=== PATIENT | female | born 1935 | race Caucasian/White ===

== ENCOUNTER 2018-03-25 16:54 | Emergency (ER) | payer OTHER ==
--- NOTE | 2018-03-25 17:42 | ER ---
Nurse's Notes [facility] Name: Marcella Feldman Age: 83 yrs Sex: Female : 1935 Arrival Date: 03/25/2018 Time: 16:57 Bed 11 Private MD: Tye Judd Diagnosis: Encounter for screening, unspecified Presentation: 03/25 17:09 Presenting complaint: Child states: ran out of insulin and insurance won't pay for iw Levemir, last dose was last night, we just need a prescription to get through the weekend, was unable to be seen at PCP, BS= 218 last night. Transition of care: patient was not received from another setting of care. Onset of symptoms was March 25, 2018. Risk Assessment: Do you want to hurt yourself or someone else? Patient reports no desire to harm self or others. Initial Sepsis Screen: Does the patient meet any 2 criteria? No. Patient's initial sepsis screen is negative. Does the patient have a suspected source of infection? No. Patient's initial sepsis screen is negative. Care prior to arrival: None. 17:09 Method Of Arrival: Ambulatory iw 17:09 Acuity: DINESH 4 iw Triage Assessment: 18:00 General: Appears in no apparent distress. Behavior is calm, cooperative. iw Historical: - Allergies: 17:13 Ciprofloxacin; iw 17:13 Lyrica; iw 17:13 Stadol; iw - Home Meds: 17:13 Eleanor 180 mg Oral Tb24 1 tab once daily [Active]; allopurinol 300 mg Oral Tb24 0.5 iw tab once daily [Active]; Coreg 12.5 mg Oral Tb24 1 tab 2 times per day [Active]; Ecotrin 325 mg Oral TbEC once daily [Active]; Fish Oil 1,000 mg Oral cap daily [Active]; furosemide 40 mg Oral Tb24 once daily [Active]; hydrocodone-acetaminophen 10-325 mg Oral Tb24 1 tab daily [Active]; Iron CR 325 mg Oral 3 tab daily [Active]; Januvia 50 mg Oral Tb24 once daily [Active]; Levemir 10 subcutaneous 10 units [Active]; nateglinide Oral before each meal [Active]; Basilia-Maisha 0.8 mg Oral Tb24 daily [Active]; tramadol 50 mg Oral Tb24 1 tab every 4-6 hours [Active]; Vitamin B 100 mg daily [Active]; - PMHx: 17:13 ADD/ADHD; Arthritis; CHF; Diabetes - IDDM; Gout; Hypertension; Irregular heart rate; iw lymphedema; Pneumonia; skin cancer; - PSHx: 17:13 Hysterectomy; Cholecystectomy; Skin Cancer Removal; iw - Immunization history:: Adult Immunizations up to date. - Social history:: Smoking status: Patient/guardian denies using tobacco. - Ebola Screening: : Patient negative for fever greater than or equal to 101.5 degrees Fahrenheit, and additional compatible Ebola Virus Disease symptoms Patient denies exposure to infectious person Patient denies travel to an Ebola-affected area in the 21 days before illness onset No symptoms or risks identified at this time. Screenin:00 Abuse screen: Denies threats or abuse. Denies injuries from another. Nutritional iw screening: No deficits noted. Tuberculosis screening: No symptoms or risk factors identified. Fall Risk None identified. Assessment: 17:15 General: Appears in no apparent distress. Behavior is calm, cooperative. General: iw Denies fever, feeling ill. Pain: Denies pain. Neuro: Level of Consciousness is awake, alert, obeys commands, Oriented to person, place, time, Moves all extremities. Cardiovascular: Patient's skin is warm and dry. Respiratory: Respiratory effort is even, unlabored, Respiratory pattern is regular, symmetrical. GI: Patient currently denies diarrhea, nausea, vomiting. Derm: Skin is pink, warm \T\ dry. normal. Musculoskeletal: Range of motion: intact in all extremities. Vital Signs: 17:13 BP 189 / 74; Pulse 67; Resp 18; Temp 97.2(TE); Pulse Ox 100% on R/A; Weight 90.72 kg iw (R); Height 5 ft. 7 in. (170.18 cm); Pain 0/10; 17:13 Body Mass Index 31.32 (90.72 kg, 170.18 cm) iw ED Course: 16:57 Patient arrived in ED. mr 16:57 Tye Judd MD is Private Physician. mr 17:11 Triage completed. iw 17:13 Arm band placed on. iw 17:21 Vianney Hudson RN is Primary Nurse. iw 17:21 Salvador Cuello PA is PHCP. cp 17:21 Kaiden Wallace MD is Attending Physician. cp 17:38 Tye Judd MD is Referral Physician. cp 18:00 Patient has correct armband on for positive identification. iw 18:00 No provider procedures requiring assistance completed. Patient did not have IV access iw during this emergency room visit. Administered Medications: No medications were administered Point of Care Testing: Blood Glucose: 17:27 Blood Glucose: 207 mg/dL; iw Ranges: Outcome: 17:42 Discharge ordered by MD. cp 18:00 Discharged to home ambulatory. iw 18:00 Condition: good 18:00 Discharge instructions given to patient, family, Instructed on discharge instructions, follow up and referral plans. medication usage, Demonstrated understanding of instructions, follow-up care, medications, Prescriptions given X 1. 18:01 Patient left the ED. iw Signatures: Ruma Correa Irene, RN RN iw Salvador Cuello, MILENA PA cp
--- NOTE | 2018-03-25 17:42 | EDPHYS ---
Physician Documentation [facility] Name: Marcella Feldman Age: 83 yrs Sex: Female : 1935 Arrival Date: 03/25/2018 Time: 16:57 Bed 11 Private MD: Tye Judd ED Physician Kaiden Wallace HPI: 03/25 17:35 This 83 yrs old Female presents to ER via Ambulatory with complaints of cp Medication Refill. 17:35 The patient presents to the emergency department requesting refill(s) for: Insulin. The cp patient chronically suffers from diabetes. No complaints. Daughter reports patient will run out of prescribed Levemir this weekend and primary physician's office closed today at 1200.. Historical: - Allergies: 17:13 Ciprofloxacin; iw 17:13 Lyrica; iw 17:13 Stadol; iw - Home Meds: 17:13 Eleanor 180 mg Oral Tb24 1 tab once daily [Active]; allopurinol 300 mg Oral Tb24 0.5 iw tab once daily [Active]; Coreg 12.5 mg Oral Tb24 1 tab 2 times per day [Active]; Ecotrin 325 mg Oral TbEC once daily [Active]; Fish Oil 1,000 mg Oral cap daily [Active]; furosemide 40 mg Oral Tb24 once daily [Active]; hydrocodone-acetaminophen 10-325 mg Oral Tb24 1 tab daily [Active]; Iron CR 325 mg Oral 3 tab daily [Active]; Januvia 50 mg Oral Tb24 once daily [Active]; Levemir 10 subcutaneous 10 units [Active]; nateglinide Oral before each meal [Active]; Basilia-Maisha 0.8 mg Oral Tb24 daily [Active]; tramadol 50 mg Oral Tb24 1 tab every 4-6 hours [Active]; Vitamin B 100 mg daily [Active]; - PMHx: 17:13 ADD/ADHD; Arthritis; CHF; Diabetes - IDDM; Gout; Hypertension; Irregular heart rate; iw lymphedema; Pneumonia; skin cancer; - PSHx: 17:13 Hysterectomy; Cholecystectomy; Skin Cancer Removal; iw - Immunization history:: Adult Immunizations up to date. - Social history:: Smoking status: Patient/guardian denies using tobacco. - Ebola Screening: : Patient negative for fever greater than or equal to 101.5 degrees Fahrenheit, and additional compatible Ebola Virus Disease symptoms Patient denies exposure to infectious person Patient denies travel to an Ebola-affected area in the 21 days before illness onset No symptoms or risks identified at this time. ROS: 17:38 Constitutional: Negative for body aches, chills, fever, poor PO intake. cp 17:38 Eyes: Negative for injury, pain, redness, and discharge. cp 17:38 Cardiovascular: Negative for chest pain, edema, palpitations. 17:38 Respiratory: Negative for cough, shortness of breath, wheezing. 17:38 Abdomen/GI: Negative for abdominal pain, nausea, vomiting, and diarrhea. 17:38 All other systems are negative. Exam: 17:40 Constitutional: The patient appears in no acute distress, alert, awake, cp non-diaphoretic, non-toxic, well developed, well nourished. 17:40 Head/Face: Normocephalic, atraumatic. cp 17:40 Eyes: Periorbital structures: appear normal, Conjunctiva: normal, no exudate, no injection, Lids and lashes: appear normal, bilaterally. 17:40 ENT: External ear(s): are unremarkable, Nose: is normal, Mouth: Lips: moist, Oral mucosa: moist, Posterior pharynx: Airway: no evidence of obstruction, patent. 17:40 Chest/axilla: Inspection: normal, Palpation: is normal, no crepitus, no tenderness. 17:40 Cardiovascular: Rate: normal, Rhythm: regular, Edema: is not appreciated. 17:40 Respiratory: the patient does not display signs of respiratory distress, Respirations: normal, no use of accessory muscles, no retractions, no splinting, no tachypnea, labored breathing, is not present, Breath sounds: are clear throughout, no decreased breath sounds, no stridor, no wheezing. 17:40 Abdomen/GI: Inspection: abdomen appears normal, Palpation: abdomen is soft and non-tender, in all quadrants, rebound tenderness, is not appreciated, voluntary guarding, is not appreciated, involuntary guarding, is not appreciated. 17:40 Back: pain, is absent, ROM is normal. 17:40 Skin: cellulitis, is not appreciated, no rash present. 17:40 Neuro: Orientation: to person, place \T\ time. Mentation: is normal, Motor: moves all fours. Vital Signs: 17:13 BP 189 / 74; Pulse 67; Resp 18; Temp 97.2(TE); Pulse Ox 100% on R/A; Weight 90.72 kg iw (R); Height 5 ft. 7 in. (170.18 cm); Pain 0/10; 17:13 Body Mass Index 31.32 (90.72 kg, 170.18 cm) iw MDM: 17:21 Patient medically screened. cp 17:42 Data reviewed: vital signs, nurses notes, and as a result, I will discharge patient. cp 17:42 Counseling: I had a detailed discussion with the patient and/or guardian regarding: the cp historical points, exam findings, and any diagnostic results supporting the discharge/admit diagnosis, the presence of at least one elevated blood pressure reading (>120/80) during this emergency department visit, the need for outpatient follow up, a family practitioner, to return to the emergency department if symptoms worsen or persist or if there are any questions or concerns that arise at home. 03/25 17:16 Order name: Accucheck Blood Glucose; Complete Time: 17:27 cp Administered Medications: No medications were administered Point of Care Testing: Blood Glucose: 17:27 Blood Glucose: 207 mg/dL; iw Ranges: Critical Glucose Levels:Adult <50 mg/dl or >400 mg/dl <40 mg/dl or >180 mg/dl Disposition: 18:37 Co-signature as Attending Physician, Kaiden Wallace MD. rn Disposition: 03/25/18 17:42 Discharged to Home. Impression: Encounter for screening, unspecified. - Condition is Stable. - Prescriptions for Levemir 100 unit/mL Subcutaneous solution - inject 10 unit by SUBCUTANEOUS route once daily; 1 vial. - Medication Reconciliation Form, Thank You Letter, Antibiotic Education, Prescription Opioid Use form. - Follow up: Tye Judd MD; When: 03-28-2018, for immediate follow-up; Reason: medication refill. - Problem is new. - Symptoms are unchanged. Signatures: Vianney Hudson, RN RN iw Kaiden Wallace MD MD rn Page, Corey, PA PA cp Corrections: (The following items were deleted from the chart) 18:01 17:42 03/25/2018 17:42 Discharged to Home. Impression: Encounter for screening, iw unspecified. Condition is Stable. Prescriptions for Levemir 100 unit/mL Subcutaneous solution - inject 10 unit by SUBCUTANEOUS route once daily; 1 vial. and Forms are Medication Reconciliation Form, Thank You Letter, Antibiotic Education, Prescription Opioid Use. Follow up: Tye Judd; When: 03-28-2018, for immediate follow-up; Reason: medication refill. Problem is new. Symptoms are unchanged. cp
[2018-03-25 19:12] VITALS: BP 189/74; TEMP 97.2; O2SAT 100
== END 2018-03-25 18:01 | disposition home or self-care (01) ==
LOC: ER 16:54
DX: Z76.0 Encounter for issue of repeat prescription (principal); I10 Essential (primary) hypertension; E11.9 Type 2 diabetes mellitus without complications; Z79.4 Long term (current) use of insulin; Z85.828 Personal history of other malignant neoplasm of skin; Z88.3 Allergy status to other anti-infective agents; Z88.6 Allergy status to analgesic agent; Z88.8 Allergy status to other drugs, medicaments and biological substances
CPT/HCPCS: 82962; 99282

== ENCOUNTER 2018-06-29 21:18 | Observation (INO) | payer OTHER ==
--- OUTSIDE RECORDS SUMMARY | 2018-06-29 21:20 | XMS REPORT ---
:1935 Author Organization [employer] Care Team Providers Name Role Phone Saud Thorne Provider Role Unavailable Allergies, Adverse Reactions, Alerts Substance Reaction Event Type Stadol Info Not Available Drug Allergy Lyrica Info Not Available Drug Allergy Problems Problem Type Condition Code Onset Dates Condition Status Assessment Primary osteoarthritis of right M17.11 Active knee Problem Primary osteoarthritis of right M17.11 Active knee Assessment Acute pain of right knee M25.561 Active Medications Medication Code System Code Instructions Start Date End Date Status Dosage Allopurinol NDC 0 Active not defined Results No Known Results Summary Purpose [employer] Submission
[2018-06-29 23:08] LABS: Absolute Lymphocytes (CBC) 2.8 K/uL (0.7-4.9); Absolute Monocytes 0.6 K/uL (0.1-1.3); Absolute Neutrophil 4.1 K/uL (1.8-8.0); Basophils % 0.9 % (0-1.3); Eosinophils % 3.8 % (0-4.4); Hematocrit 33.8 % (36.0-45.0); Lymphocytes % 35.3 % (15.3-44.8); MCH 32.7 pg (27.0-35.0); MCV 98.8 fL (80-100); MPV 11.5 fL (7.6-11.3); Monocytes % 8.1 % (3.3-12.3); RBC Red Blood Cell Count 3.42 M/uL (3.86-4.86)
[2018-06-29 23:13] LABS: Protime INR 1.04
[2018-06-29 23:23] LABS: Albumin 3.4 g/dL (3.4-5.0); Bilirubin Direct 0.2 mg/dL (0-0.2); Bilirubin Total 0.6 mg/dL (0.2-1.0); Protein, Total 7.6 g/dL (6.4-8.2)
--- NOTE | 2018-06-30 00:32 | ER ---
Nurse's Notes [facility] Name: Marcella Feldman Age: 83 yrs Sex: Female : 1935 Arrival Date: 06/29/2018 Time: 21:20 Bed 5 Private MD: Tye Judd Diagnosis: Gastrointestinal hemorrhage, unspecified Presentation: 06/29 21:39 Presenting complaint: Patient states: She has had bright red rectal bleeding that is aj1 constant with clots since noon today. Patient states that she is feeling generalized fatigue. Denies shortness of breath, dizziness. Transition of care: patient was not received from another setting of care. Onset of symptoms was June 29, 2018 at 12:00. Risk Assessment: Do you want to hurt yourself or someone else? Patient reports no desire to harm self or others. Initial Sepsis Screen: Does the patient meet any 2 criteria? No. Patient's initial sepsis screen is negative. Does the patient have a suspected source of infection? No. Patient's initial sepsis screen is negative. Care prior to arrival: None. 21:39 Method Of Arrival: Wheelchair aj1 21:39 Acuity: DINESH 3 aj1 Triage Assessment: 21:41 General: Appears in no apparent distress. comfortable, Behavior is calm, cooperative, aj1 appropriate for age. Pain: Denies pain. Neuro: Level of Consciousness is awake, alert, obeys commands. Cardiovascular: Patient's skin is warm and dry. Respiratory: Airway is patent Respiratory effort is even, unlabored, Respiratory pattern is regular, symmetrical. GI: Reports rectal bleeding. Historical: - Allergies: 21:41 Ciprofloxacin; aj1 21:41 Lyrica; aj1 21:41 Stadol; aj1 - Home Meds: 21:41 Eleanor 180 mg Oral Tb24 1 tab once daily [Active]; allopurinol 300 mg Oral Tb24 0.5 aj1 tab once daily [Active]; Coreg 12.5 mg Oral Tb24 1 tab 2 times per day [Active]; gabapentin oral oral [Active]; Ecotrin 325 mg Oral chew once daily [Active]; Fish Oil 1,000 mg Oral cap daily [Active]; furosemide 40 mg Oral Tb24 once daily [Active]; hydrocodone-acetaminophen 10-325 mg Oral Tb24 1 tab daily [Active]; Iron CR 325 mg Oral 3 tab daily [Active]; Januvia 50 mg Oral Tb24 once daily [Active]; Levemir 10 subcutaneous 10 units [Active]; nateglinide Oral before each meal [Active]; Basilia-Maisha 0.8 mg Oral Tb24 daily [Active]; tramadol 50 mg Oral Tb24 1 tab every 4-6 hours [Active]; Vitamin B 100 mg daily [Active]; - PMHx: 21:41 ADD/ADHD; Arthritis; CHF; Diabetes - IDDM; Gout; Hypertension; Irregular heart rate; aj1 lymphedema; Pneumonia; skin cancer; - Immunization history:: Flu vaccine is up to date. - Social history:: Smoking status: Patient/guardian denies using tobacco. - Ebola Screening: : Patient denies travel to an Ebola-affected area in the 21 days before illness onset. Screenin:04 Abuse screen: Denies threats or abuse. Denies injuries from another. Nutritional bp screening: No deficits noted. Tuberculosis screening: No symptoms or risk factors identified. Fall Risk No fall in past 12 months (0 pts). No secondary diagnosis (0 pts). No IV (0 pts). Ambulatory Aid- None/Bed Rest/Nurse Assist (0 pts). Gait- Normal/Bed Rest/Wheelchair (0 pts) Mental Status- Oriented to own ability (0 pts). Total Herrera Fall Scale indicates No Risk (0-24 pts). Assessment: 22:00 General: Appears in no apparent distress. comfortable, Behavior is calm, cooperative, bp appropriate for age. Pain: Denies pain. Neuro: Level of Consciousness is awake, alert, obeys commands, Oriented to person, place, time, situation, Appropriate for age Reports FATIGUE. Cardiovascular: Rhythm is sinus rhythm Chest pain is denied. Respiratory: Airway is patent Respiratory effort is even, unlabored, Respiratory pattern is regular, symmetrical. GI: Reports rectal bleeding. : No signs and/or symptoms were reported regarding the genitourinary system. EENT: No deficits noted. Derm: No deficits noted. Musculoskeletal: Circulation, motion, and sensation intact. Range of motion: intact in all extremities. 23:00 Reassessment: No changes from previously documented assessment. Patient and/or family bb updated on plan of care and expected duration. Pain level reassessed. Patient is alert, oriented x 3, equal unlabored respirations, skin warm/dry/pink. 23:48 Reassessment: Patient and/or family updated on plan of care and expected duration. Pain bb level reassessed. Patient is alert, oriented x 3, equal unlabored respirations, skin warm/dry/pink. pt awaiting diagnostic results. 06/30 01:45 Reassessment: Patient appears in no apparent distress at this time. Patient and/or bp family updated on plan of care and expected duration. Pain level reassessed. Patient is alert, oriented x 3, equal unlabored respirations, skin warm/dry/pink. Dr. Joseph did per rectal examination for the patient. 01:45 Reassessment: Room assigned at 409, called telemetry extension at 1440 and report given cc3 to SUZAN Ceballos for continuity of care. 01:55 Reassessment: Patient left ER vitally stable by stretcher escorted by senior technical support engineer and cc3 family member. Vital Signs: 06/29 21:41 BP 158 / 69; Pulse 76; Resp 18; Temp 98.6(O); Pulse Ox 100% on R/A; Weight 90.72 kg aj1 (R); Height 5 ft. 7 in. (170.18 cm) (R); Pain 0/10; 22:00 BP 148 / 82; Pulse 75; Resp 16; Pulse Ox 100% ; bp 23:00 BP 153 / 82; Pulse 76; Resp 16 S; Pulse Ox 100% on R/A; bb 23:51 BP 157 / 77; Pulse 68; Resp 14 S; Pulse Ox 100% on R/A; bb 06/30 00:58 BP 163 / 90; Pulse 74; Resp 11; Pulse Ox 100% ; bp 01:30 BP 161 / 83; Pulse 75; Resp 13 S; Pulse Ox 100% on R/A; bp 06/29 21:41 Body Mass Index 31.32 (90.72 kg, 170.18 cm) aj1 ED Course: 06/29 21:20 Patient arrived in ED. es 21:20 Tye Judd MD is Private Physician. es 21:40 Triage completed. aj1 21:41 Arm band placed on Patient placed in waiting room. aj1 22:04 Patient has correct armband on for positive identification. Placed in gown. Bed in low bp position. Call light in reach. Side rails up X2. Adult w/ patient. 22:10 Inserted saline lock: 20 gauge in right antecubital area, using aseptic technique. cc3 Blood collected. 22:21 You Joseph MD is Attending Physician. gs 23:48 Eli Irizarry, RN is Primary Nurse. bb 06/30 00:29 Tye Judd MD is Hospitalizing Provider. gs 00:59 No provider procedures requiring assistance completed. Patient admitted, IV remains in bp place. Administered Medications: 00:35 Drug: NS 0.9% 1000 ml Route: IV; Rate: 1 bolus; Site: right antecubital; bp 01:20 Follow up: Response: No adverse reaction; IV Status: Infusion continued upon admission cc3 00:35 Drug: ProTONIX 40 mg Route: IVP; Site: left antecubital; bp 00:50 Follow up: Response: No adverse reaction bp Outcome: 00:32 Decision to Hospitalize by Provider. gs 01:45 Admitted to Tele accompanied by tech, via stretcher, room 409, Other SBAR Report called bp to SUZAN Ceballos 01:45 Condition: stable 01:45 Instructed on the need for admit. 02:04 Patient left the ED. cc3 Signatures: Gracia Hassan, RN RN ajShaila Ramirez Brenda, RN RN bb oYu Joseph MD MD Uri Faith RN RN Priyanka Pena cc3 Corrections: (The following items were deleted from the chart) 06/29 23:51 23:49 BP 157 / 77; Pulse 68bpm; Resp 14bpm; Spontaneous; Pulse Ox 100% RA; bb bb 23:51 23:00 BP 157 / 77; Pulse 68bpm; Resp 14bpm; Spontaneous; Pulse Ox 100% RA; bb bb
--- NOTE | 2018-06-30 00:32 | EDPHYS ---
Physician Documentation [facility] Name: Marcella Feldman Age: 83 yrs Sex: Female : 1935 Arrival Date: 06/29/2018 Time: 21:20 Bed 5 Private MD: Tye Judd ED Physician You Joseph HPI: 06/30 00:27 This 83 yrs old Female presents to ER via Wheelchair with complaints of gs Rectal Bleeding. 00:27 The patient presents to the emergency department with bleeding from the rectum/anus, gs that is moderate. Onset: The symptoms/episode began/occurred yesterday. Modifying factors: The symptoms are alleviated by nothing, The symptoms are aggravated by nothing. Associate signs and symptoms: Pertinent negatives: abdominal pain, constipation. The patient has experienced similar episodes in the past, a few times. The patient has not recently seen a physician. Historical: - Allergies: 06/29 21:41 Ciprofloxacin; aj1 21:41 Lyrica; aj1 21:41 Stadol; aj1 - Home Meds: 21:41 Eleanor 180 mg Oral Tb24 1 tab once daily [Active]; allopurinol 300 mg Oral Tb24 0.5 aj1 tab once daily [Active]; Coreg 12.5 mg Oral Tb24 1 tab 2 times per day [Active]; gabapentin oral oral [Active]; Ecotrin 325 mg Oral chew once daily [Active]; Fish Oil 1,000 mg Oral cap daily [Active]; furosemide 40 mg Oral Tb24 once daily [Active]; hydrocodone-acetaminophen 10-325 mg Oral Tb24 1 tab daily [Active]; Iron CR 325 mg Oral 3 tab daily [Active]; Januvia 50 mg Oral Tb24 once daily [Active]; Levemir 10 subcutaneous 10 units [Active]; nateglinide Oral before each meal [Active]; Basilia-Maisha 0.8 mg Oral Tb24 daily [Active]; tramadol 50 mg Oral Tb24 1 tab every 4-6 hours [Active]; Vitamin B 100 mg daily [Active]; - PMHx: 21:41 ADD/ADHD; Arthritis; CHF; Diabetes - IDDM; Gout; Hypertension; Irregular heart rate; aj1 lymphedema; Pneumonia; skin cancer; - Immunization history:: Flu vaccine is up to date. - Social history:: Smoking status: Patient/guardian denies using tobacco. - Ebola Screening: : Patient denies travel to an Ebola-affected area in the 21 days before illness onset. ROS: 06/30 00:27 All other systems are negative. gs Exam: 00:27 Head/Face: Normocephalic, atraumatic. Eyes: Pupils equal round and reactive to light, gs extra-ocular motions intact. Lids and lashes normal. Conjunctiva and sclera are non-icteric and not injected. Cornea within normal limits. Periorbital areas with no swelling, redness, or edema. ENT: Nares patent. No nasal discharge, no septal abnormalities noted. Tympanic membranes are normal and external auditory canals are clear. Oropharynx with no redness, swelling, or masses, exudates, or evidence of obstruction, uvula midline. Mucous membranes moist. Neck: Trachea midline, no thyromegaly or masses palpated, and no cervical lymphadenopathy. Supple, full range of motion without nuchal rigidity, or vertebral point tenderness. No Meningismus. Chest/axilla: Normal chest wall appearance and motion. Nontender with no deformity. No lesions are appreciated. Cardiovascular: Regular rate and rhythm with a normal S1 and S2. No gallops, murmurs, or rubs. Normal PMI, no JVD. No pulse deficits. Respiratory: Lungs have equal breath sounds bilaterally, clear to auscultation and percussion. No rales, rhonchi or wheezes noted. No increased work of breathing, no retractions or nasal flaring. Abdomen/GI: Soft, non-tender, with normal bowel sounds. No distension or tympany. No guarding or rebound. No evidence of tenderness throughout. Back: No spinal tenderness. No costovertebral tenderness. Full range of motion. Skin: Warm, dry with normal turgor. Normal color with no rashes, no lesions, and no evidence of cellulitis. MS/ Extremity: Pulses equal, no cyanosis. Neurovascular intact. Full, normal range of motion. Neuro: Awake and alert, GCS 15, oriented to person, place, time, and situation. Cranial nerves II-XII grossly intact. Motor strength 5/5 in all extremities. Sensory grossly intact. Cerebellar exam normal. Normal gait. 00:27 Constitutional: The patient appears in no acute distress, alert, awake. 00:27 Abdomen/GI: Rectal exam: Stool: grossly bloody. Vital Signs: 06/29 21:41 BP 158 / 69; Pulse 76; Resp 18; Temp 98.6(O); Pulse Ox 100% on R/A; Weight 90.72 kg aj1 (R); Height 5 ft. 7 in. (170.18 cm) (R); Pain 0/10; 22:00 BP 148 / 82; Pulse 75; Resp 16; Pulse Ox 100% ; bp 23:00 BP 153 / 82; Pulse 76; Resp 16 S; Pulse Ox 100% on R/A; bb 23:51 BP 157 / 77; Pulse 68; Resp 14 S; Pulse Ox 100% on R/A; bb 06/30 00:58 BP 163 / 90; Pulse 74; Resp 11; Pulse Ox 100% ; bp 01:30 BP 161 / 83; Pulse 75; Resp 13 S; Pulse Ox 100% on R/A; bp 06/29 21:41 Body Mass Index 31.32 (90.72 kg, 170.18 cm) aj1 MDM: 06/29 22:39 Patient medically screened. 06/30 00:27 Differential diagnosis: hemorrhoids, fissure, diverticular bleeding, pud. Data gs reviewed: vital signs, nurses notes. Response to treatment: the patient's symptoms have markedly improved after treatment, and as a result, I will admit patient. 06/29 22:39 Order name: Basic Metabolic Panel; Complete Time: 00:21 06/29 22:39 Order name: CBC with Diff; Complete Time: 00:21 06/29 22:39 Order name: Creatinine for Radiology; Complete Time: 00:21 06/29 22:39 Order name: Hepatic Function; Complete Time: 00:21 06/29 22:39 Order name: Lipase; Complete Time: 00:21 06/29 22:39 Order name: Type And Screen 06/29 22:39 Order name: PT-INR; Complete Time: 00: 06/30 00:40 Order name: CONS Physician Consult EDMS 06/30 00:40 Order name: CBC with Automated Diff EDMS 06/30 00:40 Order name: CBC with Automated Diff EDMS 06/30 00:40 Order name: CBC with Automated Diff EDMS 06/30 00:40 Order name: CBC with Automated Diff EDMS 06/29 22:39 Order name: IV Saline Lock; Complete Time: 22:40 06/29 22:39 Order name: Labs collected and sent; Complete Time: 22:40 06/30 00:40 Order name: Clear Liquid EDMS Administered Medications: 00:35 Drug: NS 0.9% 1000 ml Route: IV; Rate: 1 bolus; Site: right antecubital; bp 01:20 Follow up: Response: No adverse reaction; IV Status: Infusion continued upon admission cc3 00:35 Drug: ProTONIX 40 mg Route: IVP; Site: left antecubital; bp 00:50 Follow up: Response: No adverse reaction bp Disposition: 06/30/18 00:32 Hospitalization ordered by Tye Judd for Observation. Preliminary diagnosis is Gastrointestinal hemorrhage, unspecified. - Bed requested for Telemetry/MedSurg (observation). - Status is Observation. cc3 - Condition is Stable. - Problem is new. - Symptoms are unchanged. UTI on Admission? No Signatures: Dispatcher [employer] EDMT Gracia Hassan RN RN [facility] Margoth Ruff RN RN mw Starr, Gregory, MD MD Uri Faith RN RN bp Cordel, Charlene cc3 Corrections: (The following items were deleted from the chart) 00:49 00:32 Hospitalization Ordered by Tye Judd MD for Observation. Preliminary diagnosis is Gastrointestinal hemorrhage, unspecified. Bed requested for Telemetry/MedSurg (observation). Status is Observation. Condition is Stable. Problem is new. Symptoms are unchanged. UTI on Admission? No. gs 00:52 00:49 06/30/2018 00:32 Hospitalization Ordered by Tye Judd MD for Observation. mw Preliminary diagnosis is Gastrointestinal hemorrhage, unspecified. Bed requested for Telemetry/MedSurg (observation). Status is Observation. Condition is Stable. Problem is new. Symptoms are unchanged. UTI on Admission? No. mw 02:04 00:52 06/30/2018 00:32 Hospitalization Ordered by Tye Judd MD for Observation. cc3 Preliminary diagnosis is Gastrointestinal hemorrhage, unspecified. Bed requested for Telemetry/MedSurg (observation). Status is Observation. Condition is Stable. Problem is new. Symptoms are unchanged. UTI on Admission? No. mw
[2018-06-30] MEDS ORDERED: ACETAMINOPHEN 500 MG TAB PO PRN (00:37)
[2018-06-30] MEDS ORDERED: D50W 25 GM/50 ML SYRINGE IV PRN (00:38)
[2018-06-30] MEDS ORDERED: GLUCAGON 1 MG/VIAL IM PRN (00:38)
[2018-06-30] MEDS ORDERED: PANTOPRAZOLE 40 MG INJ ONE (00:41)
[2018-06-30] MEDS ORDERED: NA CHLORIDE 0.9% 1,000 ML ONE (00:42)
[2018-06-30 02:25] VITALS: BMI 31.3
[2018-06-30] MEDS: D5 0.45 NS 1,000 ML IV SCH ×3 (02:37→11:45)
[2018-06-30] MEDS: INSULIN -REGULAR HUMAN 50 UNIT/0.5 ML ML SQ SCH ×4 (07:30→21:00)
[2018-06-30] MEDS ORDERED: INFLUENZA VACCINE (for 3y+) 0.5 ML DOSE IMVAC ONE (08:00)
[2018-06-30] MEDS ORDERED: FUROSEMIDE 40 MG/4 ML VIAL IV SCH (09:00)
[2018-06-30] MEDS: CARVEDILOL 12.5 MG TAB PO SCH ×2 (09:07→21:10)
[2018-06-30] MEDS: FUROSEMIDE 40 MG TABLET PO SCH (09:07)
[2018-06-30] MEDS ORDERED: HYDROCODONE/APAP 10/325 TAB PO PRN (11:47)
[2018-06-30] MEDS ORDERED: [UNRECOGNIZED DRUG - REMARK] PO PRN (11:47)
[2018-06-30] MEDS ORDERED: INSULIN GLARGINE 100 UNITS/ML SQ PRN (11:47)
[2018-06-30] MEDS ORDERED: TRAMADOL HCL 50 MG TAB PO PRN (11:47)
[2018-06-30] MEDS: ALLOPURINOL 300 MG TAB PO SCH (12:50)
[2018-06-30] MEDS: MULTIVITAMINS,THERAPEUT 1 TAB PO SCH (12:50)
[2018-06-30] MEDS: SITAGLIPTIN PHOS 100 MG TAB PO SCH (12:51)
[2018-06-30] MEDS: GABAPENTIN 100 MG CAP PO SCH (12:51)
[2018-06-30] MEDS: VITAMIN B COMPLEX 1 CAP PO SCH ×2 (12:51→12:53)
[2018-06-30] MEDS: DOCOSAHEXANOIC AC/EPA 1000 MG PO SCH (12:52)
[2018-06-30] MEDS: FERROUS SULFATE 325 MG TAB PO SCH ×2 (12:52→21:09)
[2018-06-30] MEDS ORDERED: MAGNESIUM CITRATE 300 ML BOT PO SCH (19:00)
[2018-06-30] MEDS ORDERED: GOLYTELY 4000 ML PO SCH (19:00)
[2018-06-30] MEDS: METOCLOPRAMIDE 10 MG/2mL INJ IV SCH (20:14)
[2018-06-30] MEDS ORDERED: CARVEDILOL 12.5 MG TAB PO SCH (21:00)
--- NOTE | 2018-06-30 22:26 | EKG ---
Test Date: 2018-06-30 Test Time: 17:06:17 Manager Solar: YAMILET MEASUREMENT RESULTS: Intervals: Rate: 82 NM: QRSD: 108 QT: 408 QTc: 476 Kingman: P: NM: QRS: 10 T: 62 INTERPRETIVE STATEMENTS: Atrial fibrillation with premature ventricular or aberrantly conducted complexes Incomplete right bundle branch block Cannot rule out Anterior infarct, age undetermined Abnormal ECG Compared to ECG 09/13/2017 15:06:42 Ventricular premature complex(es) now present Myocardial infarct finding still present Electronically Signed On 06-30-18 22:26:12 CDT by Joe Marie
[2018-06-30] MEDS ORDERED: cloNIDine HCl 0.1 MG TAB PO ONE (22:54)
[2018-06-30] MEDS ORDERED: cloNIDine HCl 0.1 MG TAB PO PRN (22:56)
[2018-07-01] MEDS: METOCLOPRAMIDE 10 MG/2mL INJ IV SCH ×2 (01:03→08:59)
[2018-07-01] MEDS: INSULIN -REGULAR HUMAN 50 UNIT/0.5 ML ML SQ SCH ×3 (07:30→16:30)
[2018-07-01] MEDS ORDERED: FUROSEMIDE 40 MG TABLET PO SCH (09:00)
[2018-07-01] MEDS: SITAGLIPTIN PHOS 100 MG TAB PO SCH (09:00)
[2018-07-01] MEDS: FERROUS SULFATE 325 MG TAB PO SCH ×2 (09:00→16:05)
[2018-07-01 09:09] LABS: Absolute Lymphocytes (CBC) 2.1 K/uL (0.7-4.9); Absolute Monocytes 0.9 K/uL (0.1-1.3); Absolute Neutrophil 7.7 K/uL (1.8-8.0); Basophils % 0.5 % (0-1.3); Eosinophils % 0.6 % (0-4.4); Hematocrit 35.3 % (36.0-45.0); Lymphocytes % 19.4 % (15.3-44.8); MCH 32.6 pg (27.0-35.0); MCV 98.4 fL (80-100); MPV 11.5 fL (7.6-11.3); Monocytes % 8.4 % (3.3-12.3); RBC Red Blood Cell Count 3.59 M/uL (3.86-4.86)
--- NOTE | 2018-07-01 10:58 | RAD REPORT ---
EXAM DESCRIPTION: RAD - Colon Barium Enema - 07/01/2018 10:40 am CLINICAL HISTORY: Acute GI bleeding COMPARISON: None. TECHNIQUE: A single column barium enema examination was performed. FINDINGS: The wrecking supervisor film shows a nonspecific bowel gas pattern. No significant or suspicious findin gs noted on the preliminary imaging. There were 30 spot images obtained and 12 overhead images. Fluoro time was 4.5 minutes. Barium filled the entire colon. No reflux into the terminal ileum. The appendix was visualized. Tequila ent has a mild sigmoid diverticulosis pattern. There is mild sigmoid spasm noted during the examinati on. No annular constricting lesion or large polypoid filling defect seen in the sigmoid colon. There is mild tortuosity. No annular constricting lesion is present. No other area of diverticulosis. Transverse and descending portions of the colon show no suspicious findings. In the ascending colon near the hepatic flexure t here is a 15 millimeter smooth filling defect that persisted on the examination. This is suspected to be a polyp. Patient has a large fatty ileocecal valve. IMPRESSION: Suspected 15 millimeter polyp in the ascending colon near the hepatic flexure. Mild sigmoid diverticulosis and mild sigmoid spasm during the examination. No annular constricting lesion or large colon mass.
[2018-07-01] MEDS: FUROSEMIDE 40 MG TABLET PO SCH (11:33)
[2018-07-01] MEDS: CARVEDILOL 12.5 MG TAB PO SCH (11:34)
[2018-07-01] MEDS ORDERED: NA CHLORIDE 0.9% 1,000 ML ONE (14:11)
[2018-07-01 14:14] VITALS: O2SAT 100
[2018-07-01] MEDS ORDERED: PROPOFOL 200 MG/20 ML VIAL IV ONE (14:24)
--- NOTE | 2018-07-01 14:35 | ENDO RPT ---
[address], [address] EGD PROCEDURE REPORT EXAM DATE: 07/01/2018 PATIENT NAME: Marcella Feldman MR#: [id number] BIRTHDATE: 1935 ATTENDING: Jimmy Giles Dr STATUS: inpatient - [facility] AD[facility]ISTRATIVE MANAGER: Amanda Mccain and Sarina Perez RN INDICATIONS: The patient is a 83 yr old Female here for an EGD due to anemia and upper G.I. bleeding PROCEDURE PERFORMED: EGD with biopsy MEDICATIONS: Per Anesthesia. TOPICAL ANESTHETIC: none CONSENT: The patient understands the risks and benefits of the procedure and understands that these risks include, but are not limited to: sedation, allergic reaction, infection, perforation and/or bleeding. Alternative means of evaluation and treatment include, among others: physical exam, x-rays, and/or surgical intervention. The patient elects to proceed with this endoscopic procedure. DESCRIPTION OF PROCEDURE: During intra-op preparation period all mechanical medical equipment was checked for proper function. Hand hygiene and appropriate measures for infection prevention was taken. Procedure, possible complications, and alternatives including but not limited to the possibility of bleeding, perforation, tear, infection, sepsis, need for surgery, need for blood transfusion, and anesthesia related complications were explained to the patient. After the risks, benefits and alternatives of the procedure were thoroughly explained, Informed consent was verified, confirmed and timeout was successfully executed by the treatment team. The patient was placed in the left lateral position. The patient was anesthetized with topical anesthesia. Through the anesthetized oropharyngeal area, the scope was passed without any difficulty. The EC-[id number] ([id number]) and Pentax EG-[id number] ([id number]) endoscope was introduced through the mouth and advanced to the second portion of the duodenum. Retroflexed views revealed no abnormalities. The gastroscope was then slowly withdrawn and removed. LA Class C esophagitis was found in the lower esophagus. A 3 mm clean-based ulcer was found in the lower esophagus. Mild gastritis was found in the antrum. Multiple biopsies were obtained and sent to pathology. Multiple (6) erosions were found in the antrum. ADVERSE EVENTS: There were no complications. IMPRESSIONS: 1. LA Class C esophagitis in the lower esophagus 2. 3 mm clean-based ulcer in the lower esophagus 3. Mild gastritis in the antrum, s/p biopsies 4. Multiple (6) erosions were found in the antrum RECOMMENDATIONS: 1. await biopsy results 2. acid suppression therapy REPEAT EXAM: Jimmy Giles Dr eSigned: Jimmy Giles Dr 07/01/2018 2:34 PM cc: Tye Judd CPT CODES: ICD9 CODES: PATIENT NAME: Marcella Feldman MR#: [id number]
[2018-07-01] MEDS: DOCOSAHEXANOIC AC/EPA 1000 MG PO SCH (16:04)
[2018-07-01] MEDS: GABAPENTIN 100 MG CAP PO SCH (16:06)
[2018-07-01] MEDS: ALLOPURINOL 300 MG TAB PO SCH (16:08)
[2018-07-01] MEDS: MULTIVITAMINS,THERAPEUT 1 TAB PO SCH (16:09)
[2018-07-01 17:17] VITALS: BP 149/74; TEMP 97
[2018-07-01] MEDS ORDERED: INFLUENZA VACCINE (for 3y+) 0.5 ML DOSE IMVAC ONE (18:00)
--- NOTE | 2018-07-02 16:07 | SS ---
Date of Discharge: 07/01/2018 History: The patient was admitted to the hospital for sudden onset of what was felt to be significan t rectal bleeding, seen in the ER. The patient had similar problem approximately 3 or 4 months ago, at which time she was admitted, observed, no significant drop in her H and H, bleeding stopped. She has been discharged with the suggestion that she have a colonoscopy, however, this has not been accom plished as yet. Past History: This is second or third episode of what she felt was significant bleeding. Had some b right red bleeding intermittently in the past. Long history of IDDM, controlled with medication, hyp ertension controlled with medication. Physical Examination: General: The patient is an elderly female, fully orientated. Vital Signs: Stable. HEENT: Slightly pale conjunctiva, otherwise basically normal physical exam on the ENT. Chest: Clear to P and A. Cardiovascular: PMI midclavicular line. Heart sounds normal. Peripheral pulses present and equal b ilaterally. Abdomen: No organomegaly. Bowel sounds present. Extremities: Good tone and movement bilaterally. Reflexes physiologic. Rectal: Bright red bleeding noted in the ER, but none since at the time that I saw her. Pelvic: Exam deferred. Impression: 1.Rectal bleeding, unknown etiology, possible lower or upper gastrointestinal etiology, although the patient is basically asymptomatic. 2.Hypertension, controlled. 3.Insulin-dependent diabetes mellitus, good control. Plan: The patient will be admitted. H and H will be followed. Consultation was obtained with the g astroenterologist for possible EGD and/or colonoscopy during this hospitalization. HR/MODL Voice ID: [id number] Report ID: [id number]
--- NOTE | 2018-07-02 16:14 | PN ---
Date of Progress Note: 06/30/2018 The patient was having minimal bright red bleeding while in the hospital. No melena. Underwent an E GD, which did show a small ulcer and inflammation in the esophagus and stomach and possible cause of bleeding. She did not have a significant change in her vital signs, therefore I felt she could be di scharged to continue on her usual medication which include the iron, and to see the gastroenterologis t on an outpatient basis for possible colonoscopy. HR/MODL Voice ID: [id number] Report ID: [id number]
== END 2018-07-01 19:03 | disposition home or self-care (01) ==
LOC: ER 21:18 → ERHOLD 06-30 00:35 → 4TH 06-30 01:36
PROVIDERS: ADMIT Family Medicine; ATTEND Family Medicine
PROC: 0DB68ZX Excision of Stomach, Via Natural or Artificial Opening Endoscopic, Diagnostic (ICD-10-PCS; principal; 2018-07-01 13:30)
DX: K22.10 Ulcer of esophagus without bleeding (principal); K20.9 Esophagitis, unspecified; K29.70 Gastritis, unspecified, without bleeding; K25.9 Gastric ulcer, unspecified as acute or chronic, without hemorrhage or perforation; E11.9 Type 2 diabetes mellitus without complications; I10 Essential (primary) hypertension; Z23 Encounter for immunization
CPT/HCPCS: 36415 ×2; 43239; 74270; 80048; 80076; 82962 ×7; 83690; 84484 ×2; 85025 ×2; 85610; 86850; 86900; 86901; 88305; 88312; 93005; 96361; 96374; 99285; C9113; G0008; G0378 ×2; J2765 ×3; J7030 ×2; Q2035

== ENCOUNTER 2019-06-04 18:31 | Inpatient (IN) | payer OTHER ==
[2019-06-04] MEDS ORDERED: NA CHLORIDE 0.9% 1,000 ML ONE (18:57)
[2019-06-04] MEDS ORDERED: ACETAMINOPHEN 325 MG TABLET ONE (18:57)
--- NOTE | 2019-06-04 19:12 | ER ---
Nurse's Notes [facility] Name: Marcella Feldman Age: 84 yrs Sex: Female : 1935 Arrival Date: 06/04/2019 Time: 18:32 Bed 5 Private MD: Diagnosis: Fever, unspecified;Weakness;Atrial fibrillation and flutter;Type 1 diabetes mellitus;Elevated white blood cell count;Anemia, unspecified;Cardiomegaly;Unspecified combined systolic (congestive) and diastolic (congestive) heart failure;Unspecified kidney failure Presentation: 06/04 18:35 Presenting complaint: EMS states: FEVER AND GENERALIZED WEAKNESS TODAY. Transition of bp care: patient was not received from another setting of care. Onset of symptoms was June 04, 2019. Risk Assessment: Do you want to hurt yourself or someone else? Patient reports no desire to harm self or others. Initial Sepsis Screen: Does the patient meet any 2 criteria? HR > 90 bpm. No. Patient's initial sepsis screen is negative. Does the patient have a suspected source of infection? No. Patient's initial sepsis screen is negative. Care prior to arrival: IV initiated. 20 GA, in the left antecubital area. 18:35 Method Of Arrival: EMS: [facility] bp 18:35 Acuity: DINESH 2 bp Triage Assessment: 18:37 General: Appears in no apparent distress. comfortable, obese, Behavior is calm, bp cooperative, appropriate for age. Pain: Denies pain. EENT: No deficits noted. Neuro: Level of Consciousness is awake, alert, obeys commands, Oriented to person, place, time, situation, Appropriate for age. Cardiovascular: Rhythm is sinus tachycardia. Respiratory: No deficits noted. GI: No signs and/or symptoms were reported involving the gastrointestinal system. : No signs and/or symptoms were reported regarding the genitourinary system. Derm: No deficits noted. Musculoskeletal: No deficits noted. Historical: - Allergies: 18:37 Ciprofloxacin; bp 18:37 Lyrica; bp 18:37 Stadol; bp - PMHx: 18:37 ADD/ADHD; Arthritis; CHF; Diabetes - IDDM; Gout; Hypertension; Irregular heart rate; bp lymphedema; Pneumonia; skin cancer; Atrial Fib; - Immunization history:: Adult Immunizations up to date. - Social history:: Smoking status: Patient/guardian denies using tobacco. - Ebola Screening: : No symptoms or risks identified at this time. - Family history:: not pertinent. Screenin:39 Abuse screen: Denies threats or abuse. Denies injuries from another. Nutritional bp screening: No deficits noted. Tuberculosis screening: No symptoms or risk factors identified. Fall Risk None identified. Assessment: 18:39 General: SEE TRIAGE NOTE. bp 19:19 Reassessment: Patient is alert, oriented x 3, equal unlabored respirations, skin bb warm/dry/pink. pt resting quietly, IV sites intact, patent, family at bedside, awaiting diagnostic results, pt admitted by EDP prior to results. 20:26 Reassessment: pt appears to be sleeping, eyes closed, resp unlabored, IV site intact, bb patent with fluids infusing. 21:54 Reassessment: Patient is alert, oriented x 3, equal unlabored respirations, skin ea warm/dry/pink. Report called to receiving nurse on second floor. 22:00 Reassessment: Patient and/or family updated on plan of care and expected duration. Pain ea level reassessed. Pt admitted to second floor left ED via stretcher, accompanied by family. Pt tolerating well. Vital Signs: 18:37 BP 153 / 74; Pulse 112; Resp 20; Temp 100.7; Pulse Ox 94% on 2 lpm NC; Weight 90.72 kg; bp Height 5 ft. 7 in. (170.18 cm); 19:22 BP 162 / 62; Pulse 96; Resp 16 S; Temp 99.3(O); Pulse Ox 100% on 2 lpm NC; bb 20:25 BP 142 / 55; Pulse 83; Resp 18 S; Pulse Ox 100% on 2 lpm NC; bb 21:38 BP 145 / 64; Pulse 85; Resp 14; Temp 98.3(O); Pulse Ox 98% ; ag4 18:37 Body Mass Index 31.32 (90.72 kg, 170.18 cm) bp ED Course: 18:32 Patient arrived in ED. hj 18:35 Uri Faith, RN is Primary Nurse. bp 18:36 Triage completed. bp 18:37 Arm band placed on. bp 18:39 Patient has correct armband on for positive identification. Bed in low position. Call bp light in reach. Side rails up X2. 18:39 Maintain EMS IV. Dressing intact. Good blood return noted. Site clean \T\ dry. Gauge \T\ bp site: 20 GAUGE LEFT AC. 18:40 EKG done, by ED staff, reviewed by salvador Teague. hj 18:45 Salvador Teague MD is Attending Physician. bib 19:09 Alma Delia Roldan MD is Hospitalizing Provider. bib 19:10 Inserted saline lock: 18 gauge in left EJ, using aseptic technique. ,using aseptic bb technique. by Dr Teague Blood collected. 19:25 Patient admitted, IV remains in place. bb 19:36 XRAY Chest (1 view) In Process Unspecified. EDMS 20:00 Fuentes cath inserted, using sterile technique, 16 Fr., by hi, balloon inflated, to bb gravity drainage, urine specimen collected. Patient tolerated well. 20:25 No provider procedures requiring assistance completed. bb Administered Medications: 19:17 Drug: Tylenol 650 mg Route: PO; bb 20:44 Follow up: Response: No adverse reaction bb 19:17 Drug: NS 0.9% 500 ml Route: IV; Rate: bolus; Site: left jugular; bb 20:44 Follow up: IV Status: Completed infusion; IV Intake: 500ml bb 19:42 Drug: Pepcid 20 mg Route: IVP; Site: left jugular; bb 20:43 Follow up: Response: No adverse reaction bb 19:45 Drug: Cefepime 2 grams Route: IVPB; Rate: 200 ml/hr; Infused Over: 30 mins; Site: left bb antecubital; 20:43 Follow up: IV Status: Completed infusion; IV Intake: 100ml bb 19:45 Drug: Solu-CORTEF 100 mg Route: IVP; Site: left jugular; bb 20:44 Follow up: Response: No adverse reaction bb 20:36 Not Given (Physician Discretion): Lasix 20 mg IVP once bb 20:45 Drug: NS 0.9% 1000 ml Route: IV; Rate: 125 ml/hr; Site: left jugular; bb 21:56 Follow up: Response: No adverse reaction; IV Status: Infusion continued upon admission ea 20:45 Drug: vancoMYCIN 1 grams Route: IVPB; Infused Over: 2 hrs; Site: left antecubital; bb 21:50 Follow up: Response: No adverse reaction; IV Status: Infusion continued upon admission ea 21:01 Not Given (Other Intervention Used): Zithromax 500 mg IVPB once over 1 hrs; mix in 250 bb mL NS 21:07 Drug: Zithromax 500 mg Route: PO; bb 21:56 Follow up: Response: No adverse reaction ea Intake: 20:43 IV: 100ml; Total: 100ml. bb 20:44 IV: 500ml; Total: 600ml. bb Outcome: 19:11 Decision to Hospitalize by Provider. bib 19:23 Instructed on the need for admit. bb 19:25 Admitted to bb 21:55 Admitted to Med/surg accompanied by [facility], room 201, with chart, Report called to ea Receiving nurse on second floor 21:55 Condition: stable 22:00 Patient left the ED. ea Signatures: Dispatcher [employer] EDMS Salvador Teague MD MD cha Ballard, Brenda, RN RN Zafar Armijo, RN RN Sailaja Hardy RN Uri Mcgee ea, RN RN Arnaldo Reyes ag4 Corrections: (The following items were deleted from the chart) 22:17 22:16 Patient left the ED. ea ea
--- NOTE | 2019-06-04 19:13 | EDPHYS ---
Physician Documentation [facility] Name: Marcella Feldman Age: 84 yrs Sex: Female : 1935 Arrival Date: 06/04/2019 Time: 18:32 Bed 5 Private MD: ED Physician Salvador Teague HPI: 06/04 19:05 This 84 yrs old Female presents to ER via EMS with complaints of fever, bib weakness and sick. 19:05 This 84 yrs old Female presents to ER via EMS with complaints of fever, weak bib and sick. 19:05 The patient presents to the emergency department with nausea. Onset: The bib symptoms/episode began/occurred 3 day(s) ago. Possible causes: unknown. The symptoms are aggravated by nothing. The symptoms are alleviated by nothing. weak, fever. The patient or guardian reports cough. Severity of symptoms: At their worst the symptoms were mild, moderate. Associated signs and symptoms: Pertinent positives: fever, nausea. Historical: - Allergies: 18:37 Ciprofloxacin; bp 18:37 Lyrica; bp 18:37 Stadol; bp - PMHx: 18:37 ADD/ADHD; Arthritis; CHF; Diabetes - IDDM; Gout; Hypertension; Irregular heart rate; bp lymphedema; Pneumonia; skin cancer; Atrial Fib; - Immunization history:: Adult Immunizations up to date. - Social history:: Smoking status: Patient/guardian denies using tobacco. - Ebola Screening: : No symptoms or risks identified at this time. - Family history:: not pertinent. ROS: 19:05 Eyes: Negative for injury, pain, redness, and discharge, ENT: Negative for injury, bib pain, and discharge, Neck: Negative for injury, pain, and swelling, Respiratory: Negative for shortness of breath, cough, wheezing, and pleuritic chest pain, Abdomen/GI: Negative for abdominal pain, nausea, vomiting, diarrhea, and constipation, Back: Negative for injury and pain, : Negative for injury, bleeding, discharge, and swelling, MS/Extremity: Negative for injury and deformity, Skin: Negative for injury, rash, and discoloration, Psych: Negative for depression, anxiety, suicide ideation, homicidal ideation, and hallucinations, Allergy/Immunology: Negative for hives, rash, and allergies, Endocrine: Negative for neck swelling, polydipsia, polyuria, polyphagia, and marked weight changes, Hematologic/Lymphatic: Negative for swollen nodes, abnormal bleeding, and unusual bruising. 19:05 Constitutional: Positive for body aches, chills, fatigue, fever, malaise. 19:05 Cardiovascular: Positive for palpitations. 19:05 Neuro: Positive for weakness. Exam: 19:05 Head/Face: Normocephalic, atraumatic. Eyes: Pupils equal round and reactive to light, bib extra-ocular motions intact. Lids and lashes normal. Conjunctiva and sclera are non-icteric and not injected. Cornea within normal limits. Periorbital areas with no swelling, redness, or edema. ENT: Nares patent. No nasal discharge, no septal abnormalities noted. Tympanic membranes are normal and external auditory canals are clear. Oropharynx with no redness, swelling, or masses, exudates, or evidence of obstruction, uvula midline. Mucous membranes moist. Neck: Trachea midline, no thyromegaly or masses palpated, and no cervical lymphadenopathy. Supple, full range of motion without nuchal rigidity, or vertebral point tenderness. No Meningismus. Chest/axilla: Normal chest wall appearance and motion. Nontender with no deformity. No lesions are appreciated. Respiratory: Lungs have equal breath sounds bilaterally, clear to auscultation and percussion. No rales, rhonchi or wheezes noted. No increased work of breathing, no retractions or nasal flaring. Back: No spinal tenderness. No costovertebral tenderness. Full range of motion. Skin: Warm, dry with normal turgor. Normal color with no rashes, no lesions, and no evidence of cellulitis. MS/ Extremity: Pulses equal, no cyanosis. Neurovascular intact. Full, normal range of motion. Neuro: Awake and alert, GCS 15, oriented to person, place, time, and situation. Cranial nerves II-XII grossly intact. Motor strength 5/5 in all extremities. Sensory grossly intact. Cerebellar exam normal. Normal gait. Psych: Awake, alert, with orientation to person, place and time. Behavior, mood, and affect are within normal limits. 19:05 Constitutional: The patient appears febrile. 19:05 Cardiovascular: Rate: tachycardic, Rhythm: irregularly irregular, Pulses: Pulses are 4+ in bilateral radial, brachial, femoral, popliteal, posterior tibial and and dorsalis pedis arteries.. Heart sounds: normal, Edema: 1+ edema to level of left midcalf and right midcalf, JVD: is noted bilaterally, to 2 cm. Vital Signs: 18:37 BP 153 / 74; Pulse 112; Resp 20; Temp 100.7; Pulse Ox 94% on 2 lpm NC; Weight 90.72 kg; bp Height 5 ft. 7 in. (170.18 cm); 19:22 BP 162 / 62; Pulse 96; Resp 16 S; Temp 99.3(O); Pulse Ox 100% on 2 lpm NC; bb 20:25 BP 142 / 55; Pulse 83; Resp 18 S; Pulse Ox 100% on 2 lpm NC; bb 21:38 BP 145 / 64; Pulse 85; Resp 14; Temp 98.3(O); Pulse Ox 98% ; ag4 18:37 Body Mass Index 31.32 (90.72 kg, 170.18 cm) bp Procedures: 19:46 Peripheral line: by aseptic technique a peripheral line was placed in the left external bib jugular vein. MDM: 18:45 Patient medically screened. [facility] 19:09 Data reviewed: vital signs, nurses notes, lab test result(s), EKG, radiologic studies, bib plain films. 06/04 18:47 Order name: Basic Metabolic Panel; Complete Time: 19:45 [facility] 06/04 18:47 Order name: CBC with Diff [facility] 06/04 18:47 Order name: LFT's; Complete Time: 19:45 [facility] 06/04 18:47 Order name: Magnesium; Complete Time: 19:45 [facility] 06/04 18:47 Order name: NT PRO-BNP; Complete Time: 19:45 [facility] 06/04 18:47 Order name: PT-INR; Complete Time: 19:30 [facility] 06/04 18:47 Order name: Troponin (emerg Dept Use Only); Complete Time: 19:45 [facility] 06/04 18:47 Order name: Urine Culture [facility] 06/04 18:47 Order name: Lipase; Complete Time: 19:45 [facility] 06/04 18:47 Order name: Flu; Complete Time: 19:30 [facility] 06/04 18:47 Order name: Procalcitonin [facility] 06/04 18:47 Order name: Lactate; Complete Time: 19:39 [facility] 06/04 18:47 Order name: Blood Culture Adult (2) [facility] 06/04 19:26 Order name: Manual Differential [facility] 06/04 18:47 Order name: XRAY Chest (1 view) [facility] 06/04 19:32 Order name: Type And Screen [facility] 06/04 20:32 Order name: Urine Dipstick--Ancillary (enter results) ar 06/04 20:46 Order name: CBC with Automated Diff [facility] 06/04 20:46 Order name: CBC with Automated Diff [facility] 06/04 20:46 Order name: Comprehensive Metabolic Panel [facility] 06/04 20:46 Order name: Comprehensive Metabolic Panel [facility] 06/04 18:40 Order name: EKG - Nurse/Tech; Complete Time: 18:40 06/04 18:47 Order name: EKG; Complete Time: 18:51 [facility] 06/04 18:47 Order name: Cardiac monitoring; Complete Time: 18:50 [facility] 06/04 18:47 Order name: IV Saline Lock; Complete Time: 18:50 [facility] 06/04 18:47 Order name: Labs collected and sent; Complete Time: 20:44 [facility] 06/04 18:47 Order name: O2 Per Protocol; Complete Time: 18:50 [facility] 06/04 18:47 Order name: O2 Sat Monitoring; Complete Time: 18:50 [facility] 06/04 18:47 Order name: Urine Dipstick-Ancillary (obtain specimen); Complete Time: 20:44 [facility] 06/04 19:03 Order name: Fuentes; Complete Time: 20:25 [facility] 06/04 20:45 Order name: CONS Pharmacy Consult [facility] 06/04 20:45 Order name: NPO EDAK Administered Medications: 19:17 Drug: Tylenol 650 mg Route: PO; bb 20:44 Follow up: Response: No adverse reaction bb 19:17 Drug: NS 0.9% 500 ml Route: IV; Rate: bolus; Site: left jugular; bb 20:44 Follow up: IV Status: Completed infusion; IV Intake: 500ml bb 19:42 Drug: Pepcid 20 mg Route: IVP; Site: left jugular; bb 20:43 Follow up: Response: No adverse reaction bb 19:45 Drug: Cefepime 2 grams Route: IVPB; Rate: 200 ml/hr; Infused Over: 30 mins; Site: left bb antecubital; 20:43 Follow up: IV Status: Completed infusion; IV Intake: 100ml bb 19:45 Drug: Solu-CORTEF 100 mg Route: IVP; Site: left jugular; bb 20:44 Follow up: Response: No adverse reaction bb 20:36 Not Given (Physician Discretion): Lasix 20 mg IVP once bb 20:45 Drug: NS 0.9% 1000 ml Route: IV; Rate: 125 ml/hr; Site: left jugular; bb 21:56 Follow up: Response: No adverse reaction; IV Status: Infusion continued upon admission ea 20:45 Drug: vancoMYCIN 1 grams Route: IVPB; Infused Over: 2 hrs; Site: left antecubital; bb 21:50 Follow up: Response: No adverse reaction; IV Status: Infusion continued upon admission ea 21:01 Not Given (Other Intervention Used): Zithromax 500 mg IVPB once over 1 hrs; mix in 250 bb mL NS 21:07 Drug: Zithromax 500 mg Route: PO; bb 21:56 Follow up: Response: No adverse reaction ea Disposition: 06/04/19 19:11 Hospitalization ordered by Alma Delia Roldan for Inpatient Admission. Preliminary diagnosis are Fever, unspecified, Weakness, Atrial fibrillation and flutter, Type 1 diabetes mellitus, Elevated white blood cell count, Anemia, unspecified, Cardiomegaly, Unspecified combined systolic (congestive) and diastolic (congestive) heart failure, Unspecified kidney failure. - Bed requested for Telemetry/MedSurg (Inpatient). - Status is Inpatient Admission. ea - Condition is Fair. - Problem is new. - Symptoms have improved. UTI on Admission? No Signatures: Dispatcher [employer] EDMS Margoth Ruff RN RN mw Anderson, Corey, MD MD cha Ballard, Brenda RN RN Zafar Armioj RN RN hj Antunez, Elena, RN RN ea Peltier, Brian RN RN bp Corrections: (The following items were deleted from the chart) 19:32 19:11 Hospitalization Ordered by Alma Delia Roldan MD for Inpatient Admission. Preliminary bib diagnosis is Fever, unspecified; Weakness; Atrial fibrillation and flutter; Type 1 diabetes mellitus. Bed requested for Telemetry/MedSurg (Inpatient). Status is Inpatient Admission. Condition is Fair. Problem is new. Symptoms have improved. UTI on Admission? No. bib 19:45 19:32 06/04/2019 19:11 Hospitalization Ordered by Alma Delia Roldan MD for Inpatient bib Admission. Preliminary diagnosis is Fever, unspecified; Weakness; Atrial fibrillation and flutter; Type 1 diabetes mellitus; Elevated white blood cell count; Anemia, unspecified. Bed requested for Telemetry/MedSurg (Inpatient). Status is Inpatient Admission. Condition is Fair. Problem is new. Symptoms have improved. UTI on Admission? No. bib 19:46 19:45 06/04/2019 19:11 Hospitalization Ordered by Alma Delia Roldan MD for Inpatient bib Admission. Preliminary diagnosis is Fever, unspecified; Weakness; Atrial fibrillation and flutter; Type 1 diabetes mellitus; Elevated white blood cell count; Anemia, unspecified; Cardiomegaly; Unspecified combined systolic (congestive) and diastolic (congestive) heart failure. Bed requested for Telemetry/MedSurg (Inpatient). Status is Inpatient Admission. Condition is Fair. Problem is new. Symptoms have improved. UTI on Admission? No. bib 20:46 19:46 06/04/2019 19:11 Hospitalization Ordered by Alma Delia Roldan MD for Inpatient mw Admission. Preliminary diagnosis is Fever, unspecified; Weakness; Atrial fibrillation and flutter; Type 1 diabetes mellitus; Elevated white blood cell count; Anemia, unspecified; Cardiomegaly; Unspecified combined systolic (congestive) and diastolic (congestive) heart failure; Unspecified kidney failure. Bed requested for Telemetry/MedSurg (Inpatient). Status is Inpatient Admission. Condition is Fair. Problem is new. Symptoms have improved. UTI on Admission? No. bib 22:16 20:46 06/04/2019 19:11 Hospitalization Ordered by Alma Delia Roldan MD for Inpatient ea Admission. Preliminary diagnosis is Fever, unspecified; Weakness; Atrial fibrillation and flutter; Type 1 diabetes mellitus; Elevated white blood cell count; Anemia, unspecified; Cardiomegaly; Unspecified combined systolic (congestive) and diastolic (congestive) heart failure; Unspecified kidney failure. Bed requested for Telemetry/MedSurg (Inpatient). Status is Inpatient Admission. Condition is Fair. Problem is new. Symptoms have improved. UTI on Admission? No. mw
[2019-06-04 19:18] LABS: Protime INR 1.25
[2019-06-04 19:22] LABS: Absolute Lymphocytes (CBC) 1.2 K/uL (0.7-4.9); Basophils % 0.4 % (0-1.3); Hematocrit 31.8 % (36.0-45.0); Lymphocytes % 4.8 % (15.3-44.8); MPV 11.9 fL (7.6-11.3); RBC Red Blood Cell Count 3.15 M/uL (3.86-4.86)
[2019-06-04] MEDS ORDERED: VANCOMYCIN 1 GM/VIAL ONE (19:33)
[2019-06-04] MEDS ORDERED: CEFEPIME 2 GM VIAL ONE (19:33)
[2019-06-04] MEDS ORDERED: HYDROCORTISONE SUC 100 MG INJ ONE (19:33)
[2019-06-04] MEDS ORDERED: WATER FOR INJ,STERILE 10 ML ONE (19:33)
[2019-06-04] MEDS ORDERED: FAMOTIDINE 20 MG/2 ML VIAL IV ONE (19:34)
[2019-06-04] MEDS ORDERED: NA CHLORIDE 0.9% 100 ML IV ONE (19:34)
[2019-06-04] MEDS ORDERED: NA CHLORIDE 0.9% 250 ML ONE (19:34)
[2019-06-04 19:39] LABS: Albumin 3.2 g/dL (3.4-5.0); Bilirubin Direct 0.8 mg/dL (0-0.2); Bilirubin Total 1.6 mg/dL (0.2-1.0); Protein, Total 7.2 g/dL (6.4-8.2)
[2019-06-04 19:40] LABS: Magnesium 2.2 mg/dL (1.8-2.4); Troponin (Emerg Dept Use Only) 0.02 ng/mL (0.0-0.045)
[2019-06-04 19:49] LABS: Blood Morphology Comment NOTED (NOT SEEN); Macrocytosis 1+; Platelet Estimate DECR
[2019-06-04] MEDS ORDERED: ACETAMINOPHEN 500 MG TAB PO PRN (20:40)
[2019-06-04] MEDS ORDERED: MORPHINE 4 MG/ML SYR IV PRN (20:40)
[2019-06-04] MEDS ORDERED: ONDANSETRON 4 MG/2 ML VIAL IV PRN (20:40)
[2019-06-04] MEDS: NA CHLORIDE 0.9% 1,000 ML IV SCH (21:00)
[2019-06-04 21:03] LABS: Urine Blood TRACE (NEG); Urine Glucose NEGATIVE (NEG); Urine Protein 1+ (NEG); Urine Specific Gravity 1.015 (1.005-1.030)
[2019-06-04] MEDS ORDERED: AZITHROMYCIN 250 MG TAB ONE ×2 (21:03→21:06)
--- NOTE | 2019-06-04 21:13 | RAD REPORT ---
EXAM DESCRIPTION: Paulina Single View06/04/2019 7:35 pm CLINICAL HISTORY: cough COMPARISON: none FINDINGS: The lungs appear clear of acute infiltrate. The heart is moderately enlarged IMPRESSION: No acute abnormalities displayed
[2019-06-04 22:42] VITALS: BMI 32.4
[2019-06-04] MEDS: CEFTRIAXONE/SWI 1gm 1 GM/10 ML SYR IV SCH (23:13)
[2019-06-05] MEDS: NA CHLORIDE 0.9% 1,000 ML IV SCH (04:29)
[2019-06-05 05:58] LABS: Basophils % 0.2 % (0-1.3); Hematocrit 30.9 % (36.0-45.0); Lymphocytes % 4.8 % (15.3-44.8); MPV 11.5 fL (7.6-11.3); RBC Red Blood Cell Count 3.06 M/uL (3.86-4.86)
[2019-06-05 06:11] LABS: Bilirubin Total 0.9 mg/dL (0.2-1.0); Potassium 4.1 mmol/L (3.5-5.1)
[2019-06-05] MEDS: CEFTRIAXONE/SWI 1gm 1 GM/10 ML SYR IV SCH ×2 (08:04→20:49)
--- NOTE | 2019-06-05 08:36 | EKG ---
Test Date: 2019-06-04 Test Time: 18:37:53 Patient Transport Officer: SUSY MEASUREMENT RESULTS: Intervals: Rate: 100 NH: QRSD: 106 QT: 374 QTc: 482 [place]: P: NH: QRS: -25 T: 104 INTERPRETIVE STATEMENTS: Atrial fibrillation Incomplete right bundle branch block Cannot rule out Anterior infarct, age undetermined Abnormal ECG Compared to ECG 06/30/2018 17:06:17 Ventricular premature complex(es) no longer present Myocardial infarct finding still present Electronically Signed On 06-05-19 08:35:58 CDT by Arnav Jaimes
--- NOTE | 2019-06-05 08:49 | P.HP ---
Certification for Inpatient Patient admitted to: Inpatient With expected LOS: >2 Midnights Patient will require the following post-hospital care: None Practitioner: I am a practitioner with admitting privileges, knowledge of patient current condition, hospital course, and medical plan of care. Services: Services provided to patient in accordance with Admission requirements found in Title 42 Section 412.3 of the Code of Federal Regulations Patient History Date of Service: 06/04/19 Reason for admission: Fever and generalized weakness History of Present Illness: Patient is a 4-year-old female who came to the emergency room with complaints of fever and generalized weakness. She has been sick for a few days. Her symptoms gradually worsened over the last 3 days. She came into the emergency room for evaluation. In the ER she was having nausea. No vomiting was noted. Workup in the ER revealed a normal chest x-ray but patient had leukocytosis. Patient had acute renal insufficiency as well. No source of infection was identified. Patient has chronic wounds of the lower extremity which will be evaluated by wound healing Center as well. Allergies ciprofloxacin HCl [From Cipro] Allergy (Intermediate, Verified 06/04/19 22:43) Itching/Hives/Rash butorphanol tartrate [From Stadol] Adverse Reaction (Mild, Verified 06/04/19 22: 42) "went crazy" pregabalin [From Lyrica] Adverse Reaction (Mild, Verified 06/04/19 22:43) "got mean" Home Medications: Allopurinol 150 mg PO DAILY 08/04/13 [place]-3 Fatty Acids/Fish Oil [Fish Oil 1,000 mg Softgel] 1,000 mg PO DAILY 11/25 Ferrous Sulfate [Iron] 325 mg PO TID 08/22/16 Fexofenadine HCl [Eleanor Allergy] 60 mg PO DAILYPRN PRN 08/22/16 Carvedilol [Coreg*] 12.5 mg PO BID #60 tab 08/25/16 Aspirin Enteric Coated [Ecotrin] 325 mg PO DAILY 09/12/17 Furosemide [Lasix*] 40 mg PO DAILY 09/12/17 Sitagliptin Phosphate [Januvia] 50 mg PO DAILY 09/12/17 Gabapentin [Neurontin] 300 mg PO BEDTIME 06/30/18 Vitamin B Complex [Balance B-100] 1 tab PO DAILY 06/30/18 Pantoprazole [Protonix Tab] 40 mg PO BID #60 tab 07/01/18 Lactobacillus Combo No.13 [Probiotic Pearls Complete] 1 tab PO DAILY 06/04/19 Polyethylene Glycol 3350 [Miralax] 17 gm PO TID PRN 06/04/19 - Past Medical/Surgical History Has patient received pneumonia vaccine in the past: Yes Diabetic: Yes -: HTN -: CHF -: Atrial fibrillation -: 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 -: Chronic Anemia -: Allergic rhinitis -: Surgical Menopause -: History of GI bleed in the past -: Chronic wound to the lower ext with Lymphedema -: Cholecystectomy -: Cataract surgery -: Hysterectomy Psychosocial/ Personal History: Lives with her daughter, , Children-3 - Family History Father Medical History: Heart disease, Hypertension Notes: Heart attack Mother Medical History: Hypertension, Stroke - Social History Smoking Status: Never smoker Alcohol use: No CD- Drugs: No Caffeine use: No Place of Residence: Home Review of Systems 10-point ROS is otherwise unremarkable Physical Examination - Vital Signs Temperature: 97.3 F Blood Pressure: 159/70 Pulse: 75 Respirations: 16 Pulse Ox (%): 100 - Physical Exam General: Alert, In no apparent distress, Demented, Confused HEENT: Atraumatic, PERRLA, Mucous membr. moist/pink, EOMI, Sclerae nonicteric Neck: Supple, 2+ carotid pulse no bruit, No LAD, Without JVD or thyroid abnormality Respiratory: Clear to auscultation bilaterally, Normal air movement Cardiovascular: Regular rate/rhythm, Normal S1 S2, No murmurs Gastrointestinal: Normal bowel sounds, Soft and benign, Non-distended, No tenderness Musculoskeletal: No tenderness Integumentary: No rashes Neurological: Sensation intact, Cranial nerves 3-12 intact, Abnormal gait, Abnormal speech, Abnormal strength Lymphatics: Other (Lower extremity chronic lymphedema) - Studies Laboratory Data (last 24 hrs) 06/04/19 19:01: PT 14.6 H, INR 1.25 06/04/19 19:01: WBC 24.8 H*, Hgb 9.9 L, Hct 31.8 L, Plt Count 128 L 06/04/19 19:01: Sodium 144, Potassium 4.0, BUN 44 H, Creatinine 1.90 H, Glucose 172 H, Magnesium 2.2, Total Bilirubin 1.6 H, AST 21, ALT 15, Alkaline Phosphatase 155 H, Lipase 178 Microbiology Data (last 24 hrs): 06/04/19 19:00 Nasopharnyx Influenza Type A Antigen Screen - Final 06/04/19 19:00 Nasopharnyx Influenza Type B Antigen Screen - Final Assessment & Plan - Problems (Diagnosis) (1) Acute kidney injury superimposed on chronic kidney disease Current Visit: Yes Status: Acute (2) Leukocytosis Current Visit: Yes Status: Acute (3) Elevated procalcitonin Current Visit: Yes Status: Acute (4) Altered mental status AMS Current Visit: No Status: Active (5) Diabetes mellitus Onset Date: 08/24/16 Current Visit: No Status: Active (6) Fatigue Current Visit: No Status: Active (7) Hypertensive disorder, systemic arterial Current Visit: No Status: Active (8) Lymphedema Current Visit: No Status: Active (9) Obesity Current Visit: No Status: Active (10) Open wound of lower limb Current Visit: No Status: Active (11) Atrial fibrillation Onset Date: 08/24/16 Current Visit: No Status: Chronic Qualifiers: Atrial fibrillation type: chronic Qualified Code(s): I48.2 - Chronic atrial fibrillation - Plan 1. Continue with IV antibiotic 2. Continue with local wound care 3. Wound care consultation 4. Gentle IV hydration 5. Monitor CBC and await culture results 6. Strict blood sugar monitoring 7. Pain control 8. PT evaluation and therapy 9. GI and DVT prophylaxis Discharge Plan: Home Plan to discharge in: Greater than 2 days - Advance Directives Does patient have a Living Will: Yes Does patient have a Durable POA for Healthcare: Yes - Code Status/Comfort Care Code Status Assessed: Yes Code Status: Full Code Critical Care: No Time Spent Managing PTS Care (In Minutes): 45
[2019-06-05] MEDS ORDERED: D5 0.45 NS 1,000 ML IV SCH (09:00)
[2019-06-05] MEDS: LACTOBACILLUS/ACIDOPHILUS TAB PO SCH (09:39)
[2019-06-05] MEDS: ASPIRIN EC 325 MG TABLET PO SCH (09:39)
[2019-06-05] MEDS: ALLOPURINOL 100 MG TAB PO SCH (09:39)
[2019-06-05] MEDS: CARVEDILOL 12.5 MG TAB PO SCH ×2 (09:40→20:46)
[2019-06-05] MEDS ORDERED: VANCOMYCIN 1.5 GM in NA CHLORIDE 0.9% 500 ML IVPB ONE (10:00)
[2019-06-05] MEDS ORDERED: VANCOMYCIN 1 GM in NA CHLORIDE 0.9% 250 ML IVPB ONE (10:00)
[2019-06-05] MEDS ORDERED: D50W 25 GM/50 ML SYRINGE IV PRN (10:35)
[2019-06-05] MEDS ORDERED: GLUCAGON 1 MG/VIAL IM PRN (10:35)
--- NOTE | 2019-06-05 10:43 | P.PN ---
Subjective Date of Service: 06/05/19 Chief Complaint: Fever and generalized weakness Patient is doing a little bit better since sick for the past couple of days unsteady gait was found to be septic source not known denies any nausea vomiting diarrhea fever chills or urinary tract symptoms Review of Systems Unremarkable General: Weakness Physical Examination - Vital Signs Temperature: 97.3 F Blood Pressure: 159/70 Pulse: 75 Respirations: 16 Pulse Ox (%): 100 - Physical Exam General: Alert, In no apparent distress, Oriented x3 Respiratory: Clear to auscultation bilaterally Cardiovascular: No edema, Regular rate/rhythm, Normal S1 S2 Gastrointestinal: Normal bowel sounds, Soft and benign, Non-distended Musculoskeletal: No clubbing, No swelling Integumentary: No rashes, No breakdown - Studies Laboratory Data (last 24 hrs) 06/04/19 19:01: PT 14.6 H, INR 1.25 06/04/19 19:01: WBC 24.8 H*, Hgb 9.9 L, Hct 31.8 L, Plt Count 128 L 06/04/19 19:01: Sodium 144, Potassium 4.0, BUN 44 H, Creatinine 1.90 H, Glucose 172 H, Magnesium 2.2, Total Bilirubin 1.6 H, AST 21, ALT 15, Alkaline Phosphatase 155 H, Lipase 178 Microbiology Data (last 24 hrs): 06/04/19 19:00 Nasopharnyx Influenza Type A Antigen Screen - Final 06/04/19 19:00 Nasopharnyx Influenza Type B Antigen Screen - Final Assessment & Plan - Problems (Diagnosis) (1) Sepsis Current Visit: Yes Status: Acute Plan: Patient is 84 years of age admitted with sepsis source unknown white count elevated history of chronic renal failure pro calcitonin level is also elevated urinalysis is nitrite negative chest x-rays clear continue monitoring change to half-normal saline await blood cultures Dc Fuentes catheter Qualifiers: Sepsis type: sepsis due to unspecified organism
[2019-06-05] MEDS ORDERED: NACHLORIDE 0.45% 500 ML IV SCH (10:45)
[2019-06-05] MEDS: NACHLORIDE 0.45% 1,000 ML IV SCH (11:09)
[2019-06-05] MEDS: INSULIN -REGULAR HUMAN 50 UNIT/0.5 ML ML SQ SCH ×3 (12:10→20:56)
[2019-06-05] MEDS: PANTOPRAZOLE 40MG TABLET PO SCH (16:17)
[2019-06-05] MEDS ORDERED: ESZOPICLONE 1 MG TAB PO PRN (16:46)
[2019-06-05] MEDS: AMLODIPINE 5 MG TAB PO SCH (17:00)
[2019-06-05] MEDS ORDERED: TRAMADOL HCL 50 MG TAB PO PRN (20:13)
[2019-06-05] MEDS ORDERED: HYDROCODONE/APAP 7.5/325 MG TAB PO PRN (20:13)
[2019-06-05] MEDS: GABAPENTIN 300 MG CAP PO SCH (20:46)
[2019-06-06] MEDS: NACHLORIDE 0.45% 1,000 ML IV SCH ×3 (03:36→17:34)
[2019-06-06] MEDS: INSULIN -REGULAR HUMAN 50 UNIT/0.5 ML ML SQ SCH ×4 (07:30→22:13)
[2019-06-06] MEDS: CEFTRIAXONE/SWI 1gm 1 GM/10 ML SYR IV SCH ×2 (09:00→21:48)
[2019-06-06] MEDS: PANTOPRAZOLE 40MG TABLET PO SCH ×2 (09:21→17:33)
[2019-06-06] MEDS: LACTOBACILLUS/ACIDOPHILUS TAB PO SCH (09:21)
[2019-06-06] MEDS: ASPIRIN EC 325 MG TABLET PO SCH (09:21)
[2019-06-06] MEDS: CARVEDILOL 12.5 MG TAB PO SCH ×2 (09:21→21:46)
[2019-06-06] MEDS: ALLOPURINOL 100 MG TAB PO SCH (09:22)
[2019-06-06] MEDS: AMLODIPINE 5 MG TAB PO SCH (09:22)
--- NOTE | 2019-06-06 12:54 | PN ---
Subjective: Patient is seen and examined. Chart reviewed and case discussed with RN. The patient d id have some confusion last night and agitation, did not do well with morphine, which has now been di scontinued. Daughter at the bedside, treatment plan explained, all questions answered. Medications: List reviewed. Code Status: Full. Physical Examination: Vital Signs: Temperature 97.7, heart rate 84, blood pressure 122/67, respirations 18, O2 at 99% on 1 L via nasal cannula. General: Asleep, but arousable, elderly female, confused, obese, ill-appearing. CV: S1, S2, irregularly irregular. Peripheral pulses present. Respiratory: Moving air well bilaterally. No wheezing or stridor. Gastrointestinal: Abdomen is soft, nontender, nondistended. Positive bowel sounds. Extremities: No clubbing, cyanosis or edema. Neuro: Difficult to properly assess due to patient's mental status, however, no focal deficit is see n. Laboratory Data: Glucose level 186. CBC is pending. Blood cultures, no growth to date. Urine cult ures growing out 2+ gram-negative rods. Assessment And Plan: 1.Sepsis likely secondary to urinary tract infection. WBC count is improving. We will continue wit h broad-spectrum IV antibiotics. Blood cultures show no growth to date, improving. 2.Acute metabolic encephalopathy. The patient's mental status is not back to baseline. Did have so me agitation and confusion last night, likely combination of sepsis and ing. We will avoid be nzodiazepines and morphine. We will use Haldol p.r.n. 3.Acute on chronic kidney injury stage 3. Repeat BMP. Continue to monitor closely. Continue with IV fluids. 4.Diabetes mellitus type 2, insulin requiring. We will continue with sliding scale insulin and shalini tor blood glucose levels. 5.Essential hypertension. Resume home medications as appropriate. 6.Chronic lymphedema. 7.Obesity, BMI 32. 8.Open wound of lower limb, chronic. No current infection. We will have Wound [facility]aling Center addre ss the wounds. 9.Atrial fibrillation, chronic, on aspirin. 10.History of CVA with left-sided weakness. 11.History of congestive heart failure with last known ejection fraction of 50%, diastolic dysfuncti on, chronic. 12.Deep venous thrombosis prophylaxis with Lovenox. Plan: We will transfer service to Dr. Judd once he is back in town. SA/MODL Voice ID: [id number] Report ID: [id number]
[2019-06-06] MEDS: GABAPENTIN 300 MG CAP PO SCH (21:46)
[2019-06-06] MEDS: VANCOMYCIN 1.5 GM in NA CHLORIDE 0.9% 500 ML IVPB SCH (23:53)
[2019-06-07] MEDS: NACHLORIDE 0.45% 1,000 ML IV SCH ×2 (02:45→16:05)
[2019-06-07 06:28] LABS: Basophils % 0.4 % (0-1.3); Hematocrit 30.9 % (36.0-45.0); Lymphocytes % 20.5 % (15.3-44.8); MPV 11.8 fL (7.6-11.3); RBC Red Blood Cell Count 3.06 M/uL (3.86-4.86)
[2019-06-07 06:49] LABS: Albumin 2.8 g/dL (3.4-5.0); Bilirubin Total 0.6 mg/dL (0.2-1.0); Potassium 3.7 mmol/L (3.5-5.1); Protein, Total 6.8 g/dL (6.4-8.2)
[2019-06-07] MEDS: INSULIN -REGULAR HUMAN 50 UNIT/0.5 ML ML SQ SCH ×4 (07:30→21:35)
[2019-06-07] MEDS: CEFTRIAXONE/SWI 1gm 1 GM/10 ML SYR IV SCH ×2 (09:00→21:00)
[2019-06-07] MEDS: ASPIRIN EC 325 MG TABLET PO SCH (09:02)
[2019-06-07] MEDS: LACTOBACILLUS/ACIDOPHILUS TAB PO SCH (09:02)
[2019-06-07] MEDS: PANTOPRAZOLE 40MG TABLET PO SCH ×2 (09:02→16:40)
[2019-06-07] MEDS: AMLODIPINE 5 MG TAB PO SCH (09:03)
[2019-06-07] MEDS: CARVEDILOL 12.5 MG TAB PO SCH ×2 (09:03→21:34)
[2019-06-07] MEDS: ALLOPURINOL 100 MG TAB PO SCH (09:06)
--- NOTE | 2019-06-07 21:10 | PN ---
Date of Progress Note: 06/07/2019 Patient seems better mentally today, however, she is still rather lethargic. We will get physical th armandopy to work with her in the morning prior to hopefully being able to be discharged. We will repeat the UA in the morning as well. Her blood counts are much better. She is basically asymptomatic as far as urinary tract system is concerned. Still on IV antibiotics. Klebsiella was the bacteria. Pr obability with switching over to p.o. medication tomorrow and being discharged, 2 things she needs. IV antibiotics still as she has had significant recurrences of UTIs over the past few months accommod ating in this septic event. HR/MODL Voice ID: [id number] Report ID: [id number]
[2019-06-07] MEDS: GABAPENTIN 300 MG CAP PO SCH (21:34)
[2019-06-08 02:17] LABS: Urine Appearance CLOUDY; Urine Bilirubin NEGATIVE (NEG); Urine Blood TRACE (NEG); Urine Color YELLOW; Urine Glucose TRACE (NEG); Urine Protein 1+ (NEG); Urine Urobilinogen 0.2 mg/dL (0.2-1.0); Urine pH 5.5 (5.0-7.0)
[2019-06-08 02:25] LABS: Urine Microscopic Reflex ORDER UMIC
[2019-06-08 03:08] LABS: Urine Bacteria <20 /HPF (<20); Urine Culture Reflex Order REFLEXED; Urine RBC <5 /HPF (NONE SEEN)
[2019-06-08] MEDS: NACHLORIDE 0.45% 1,000 ML IV SCH ×2 (04:18→20:36)
[2019-06-08 05:40] LABS: Hematocrit 30.7 % (36.0-45.0); RBC Red Blood Cell Count 3.09 M/uL (3.86-4.86)
[2019-06-08 05:41] LABS: Absolute Lymphocytes (CBC) 2.1 K/uL (0.7-4.9); Basophils % 0.4 % (0-1.3); Lymphocytes % 24.7 % (15.3-44.8); MPV 11.7 fL (7.6-11.3)
[2019-06-08 05:54] LABS: Potassium 3.6 mmol/L (3.5-5.1)
[2019-06-08] MEDS: INSULIN -REGULAR HUMAN 50 UNIT/0.5 ML ML SQ SCH ×4 (07:30→20:38)
[2019-06-08] MEDS: ALLOPURINOL 100 MG TAB PO SCH (08:57)
[2019-06-08] MEDS: LACTOBACILLUS/ACIDOPHILUS TAB PO SCH (08:57)
[2019-06-08] MEDS: PANTOPRAZOLE 40MG TABLET PO SCH ×2 (08:57→16:08)
[2019-06-08] MEDS: ASPIRIN EC 325 MG TABLET PO SCH (08:58)
[2019-06-08] MEDS: CARVEDILOL 12.5 MG TAB PO SCH ×2 (08:58→20:37)
[2019-06-08] MEDS: AMLODIPINE 5 MG TAB PO SCH (08:59)
[2019-06-08 10:14] VITALS: O2SAT 96
[2019-06-08] MEDS: CEFTRIAXONE/SWI 1gm 1 GM/10 ML SYR IV SCH ×2 (10:29→20:37)
[2019-06-08] MEDS: VANCOMYCIN 1.5 GM in NA CHLORIDE 0.9% 500 ML IVPB SCH (12:07)
[2019-06-08] MEDS: GABAPENTIN 300 MG CAP PO SCH (20:37)
[2019-06-09] MEDS: INSULIN -REGULAR HUMAN 50 UNIT/0.5 ML ML SQ SCH (07:30)
[2019-06-09] MEDS: CARVEDILOL 12.5 MG TAB PO SCH (09:00)
[2019-06-09 09:04] VITALS: BP 166/80; TEMP 97.9
[2019-06-09] MEDS: CEFTRIAXONE/SWI 1gm 1 GM/10 ML SYR IV SCH (10:39)
[2019-06-09] MEDS: LACTOBACILLUS/ACIDOPHILUS TAB PO SCH (10:40)
[2019-06-09] MEDS: ALLOPURINOL 100 MG TAB PO SCH (10:40)
[2019-06-09] MEDS: AMLODIPINE 5 MG TAB PO SCH (10:40)
[2019-06-09] MEDS: ASPIRIN EC 325 MG TABLET PO SCH (10:41)
[2019-06-09] MEDS: PANTOPRAZOLE 40MG TABLET PO SCH (10:41)
--- NOTE | 2019-06-09 21:42 | PN ---
Date of Progress Note: 06/09/2019 Patient states she continues to feel better. She is now up and about. Appetite has improved. Still awaiting a culture on her urine with bacteria. I feel that comfortable sending her home on Keflex 5 00 mg 3 times a day. To follow up in 3 or 4 days as patient has had recurrent UTIs may be proven to keep her on long-term preventative antibiotics. We will discuss this with the patient once the cultu re is back. HR/TATUM Voice ID: [id number] Report ID: [id number]
--- NOTE | 2019-06-12 07:39 | PN ---
Date of Progress Note: 06/08/2019 Patient is now up in the chair. She is feeling somewhat better, however urinalysis shows 2+ bacteria still; however, white count is okay, is basically asymptomatic. I feel she should be ready for disc harge in a.m. on oral antibiotics. HR/MODL Voice ID: [id number] Report ID: [id number]
== END 2019-06-09 11:30 | disposition home health service (06) | DRG 871 ==
LOC: ER 18:31 → ERHOLD 21:02 → 2ND 21:33
PROVIDERS: ADMIT Family Medicine; ATTEND Hospitalist
DX: A41.9 Sepsis, unspecified organism (principal); G93.41 Metabolic encephalopathy; I69.854 Hemiplegia and hemiparesis following other cerebrovascular disease affecting left non-dominant side; I13.0 Hypertensive heart and chronic kidney disease with heart failure and stage 1 through stage 4 chronic kidney disease, or unspecified chronic kidney disease; I50.32 Chronic diastolic (congestive) heart failure; N39.0 Urinary tract infection, site not specified; N17.9 Acute kidney failure, unspecified; S80.929A Unspecified superficial injury of unspecified lower leg, initial encounter; I48.2 Chronic atrial fibrillation; E11.22 Type 2 diabetes mellitus with diabetic chronic kidney disease; N18.3 Chronic kidney disease, stage 3 (moderate); I89.0 Lymphedema, not elsewhere classified; E66.9 Obesity, unspecified; Z68.32 Body mass index [BMI] 32.0-32.9, adult; B96.1 Klebsiella pneumoniae [K. pneumoniae] as the cause of diseases classified elsewhere; Z79.82 Long term (current) use of aspirin; Z88.0 Allergy status to penicillin
CPT/HCPCS: 36415; 51702; 71045; 80048; 80053; 80076; 80202; 81003; 81015; 82962; 83605; 83690; 83735; 83880; 84145; 84484; 85025; 85610; 86850; 86900; 86901; 87040; 87077; 87086; 87088; 87186; 87804; 93005; 96361; 96365; 96367; 96375; 97110; 97116; 97161; 97530; 99285; J0692; J0696; J1720; J7030

== ENCOUNTER 2019-06-18 10:56 | Inpatient (IN) | payer OTHER ==
[2019-06-18 11:51] LABS: Urine Blood 1+ (NEG); Urine Glucose NEGATIVE (NEG); Urine Protein NEGATIVE (NEG); Urine pH 5.5 (5.0-7.0)
[2019-06-18 12:01] LABS: Urine Bacteria <20 /HPF (<20); Urine Culture Reflex Order NOT NEEDED; Urine RBC 20-50 /HPF (NONE SEEN)
[2019-06-18 12:02] LABS: Basophils % 0.8 % (0-1.3); Hematocrit 31.2 % (36.0-45.0); Lymphocytes % 25.5 % (15.3-44.8); MPV 11.6 fL (7.6-11.3); RBC Red Blood Cell Count 3.11 M/uL (3.86-4.86)
[2019-06-18 12:13] LABS: Albumin 3.3 g/dL (3.4-5.0); Bilirubin Direct 0.2 mg/dL (0-0.2); Bilirubin Total 0.6 mg/dL (0.2-1.0); Potassium 4.2 mmol/L (3.5-5.1); Protein, Total 6.9 g/dL (6.4-8.2)
--- NOTE | 2019-06-18 12:46 | EDPHYS ---
Physician Documentation [facility] Name: Marcella Feldman Age: 84 yrs Sex: Female : 1935 Arrival Date: 06/18/2019 Time: 11:00 Bed 5 Private MD: ED Physician Edison Thomas HPI: 06/18 18:55 This 84 yrs old Female presents to ER via EMS with complaints of General kdr Weakness, Near Syncope. 18:55 The patient has become generally weak over the last few weeks. She had a recent kdr admission for urosepsis and was on abx but had been doing well until the last few days when she has become weak. Onset: The symptoms/episode began/occurred gradually, just prior to arrival, today. Severity of symptoms: At their worst the symptoms were mild moderate in the emergency department the symptoms are unchanged. The patient has not experienced similar symptoms in the past. The patient has not recently seen a physician. Historical: - Allergies: 11:13 Ciprofloxacin; tw2 11:13 Lyrica; tw2 11:13 Stadol; tw2 11:13 butorphanol tartrate; tw2 - Home Meds: 11:13 Eleanor 180 mg Oral Tb24 1 tab once daily [Active]; allopurinol 300 mg Oral Tb24 0.5 tw2 tab once daily [Active]; Coreg 12.5 mg Oral Tb24 1 tab 2 times per day [Active]; Ecotrin 325 mg Oral chew once daily [Active]; Fish Oil 1,000 mg Oral cap daily [Active]; furosemide 40 mg Oral Tb24 once daily [Active]; gabapentin Oral [Active]; hydrocodone-acetaminophen 10-325 mg Oral Tb24 1 tab daily [Active]; Iron CR 325 mg Oral 3 tab daily [Active]; Januvia 50 mg Oral Tb24 once daily [Active]; Levemir 10 subcutaneous 10 units [Active]; nateglinide Oral before each meal [Active]; Basilia-Maisha 0.8 mg Oral Tb24 daily [Active]; tramadol 50 mg Oral Tb24 1 tab every 4-6 hours [Active]; Vitamin B 100 mg daily [Active]; - PMHx: 11:13 Atrial Fib; ADD/ADHD; Arthritis; CHF; Diabetes - IDDM; Gout; Hypertension; Irregular tw2 heart rate; lymphedema; Pneumonia; skin cancer; - Immunization history:: Adult Immunizations. - Social history:: Smoking status: . - Ebola Screening: : Patient negative for fever greater than or equal to 101.5 degrees Fahrenheit, and additional compatible Ebola Virus Disease symptoms. ROS: 18:55 Constitutional: Negative for fever, chills, and weight loss - generally weak Eyes: kdr Negative for injury, pain, redness, and discharge, Neck: Negative for injury, pain, and swelling, Cardiovascular: Negative for chest pain, palpitations, and edema, Respiratory: Negative for shortness of breath, cough, wheezing, and pleuritic chest pain, Abdomen/GI: Negative for abdominal pain, nausea, vomiting, diarrhea, and constipation, Back: Negative for injury and pain, : Negative for injury, bleeding, discharge, and swelling, MS/Extremity: Negative for injury and deformity, Skin: Negative for injury, rash, and discoloration, Psych: Negative for depression, anxiety, suicide ideation, homicidal ideation, and hallucinations, Allergy/Immunology: Negative for hives, rash, and allergies, Endocrine: Negative for neck swelling, polydipsia, polyuria, polyphagia, and marked weight changes, Hematologic/Lymphatic: Negative for swollen nodes, abnormal bleeding, and unusual bruising. 18:55 Neuro: Positive for near syncope, weakness. Exam: 18:55 Constitutional: This is a well developed, well nourished patient who is awake, alert, kdr and in no acute distress. Head/Face: Normocephalic, atraumatic. Eyes: Pupils equal round and reactive to light, extra-ocular motions intact. Lids and lashes normal. Conjunctiva and sclera are non-icteric and not injected. Cornea within normal limits. Periorbital areas with no swelling, redness, or edema. Neck: Trachea midline, no thyromegaly or masses palpated, and no cervical lymphadenopathy. Supple, full range of motion without nuchal rigidity, or vertebral point tenderness. No Meningismus. Chest/axilla: Normal chest wall appearance and motion. Nontender with no deformity. No lesions are appreciated. Cardiovascular: Regular rate and rhythm with a normal S1 and S2. No gallops, murmurs, or rubs. Normal PMI, no JVD. No pulse deficits. Respiratory: Lungs have equal breath sounds bilaterally, clear to auscultation and percussion. No rales, rhonchi or wheezes noted. No increased work of breathing, no retractions or nasal flaring. Abdomen/GI: Soft, non-tender, with normal bowel sounds. No distension or tympany. No guarding or rebound. No evidence of tenderness throughout. Back: No spinal tenderness. No costovertebral tenderness. Full range of motion. Skin: Warm, dry with normal turgor. Normal color with no rashes, no lesions, and no evidence of cellulitis. MS/ Extremity: Pulses equal, no cyanosis. Neurovascular intact. Full, normal range of motion. Neuro: Awake and alert, GCS 15, oriented to person, place, time, and situation. Cranial nerves II-XII grossly intact. Motor strength 5/5 in all extremities. Sensory grossly intact. Psych: Awake, alert, with orientation to person, place and time. Behavior, mood, and affect are within normal limits. Vital Signs: 11:11 BP 132 / 67; Pulse 78; Resp 13; Temp 97.5(TE); Pulse Ox 95% on R/A; Weight 90.72 kg (R);tw2 12:00 BP 134 / 73; Pulse 82; Resp 17; Pulse Ox 94% on R/A; tw2 13:30 BP 137 / 92; Pulse 75; Resp 17; Pulse Ox 95% on R/A; tw2 14:32 BP 153 / 81; Pulse 78; Resp 14; Pulse Ox 98% on R/A; tw2 17:41 BP 152 / 88; Pulse 72; Resp 16; Temp 97.8; Pulse Ox 96% on R/A; sg MDM: 12:45 Patient medically screened. kdr 18:55 Data reviewed: vital signs, nurses notes, lab test result(s), radiologic studies. kdr Counseling: I had a detailed discussion with the patient and/or guardian regarding: the historical points, exam findings, and any diagnostic results supporting the discharge/admit diagnosis, lab results, radiology results, the need for further work-up and treatment in the hospital. 06/18 11:32 Order name: Basic Metabolic Panel kdr 06/18 11:32 Order name: CBC with Diff kdr 06/18 11:32 Order name: Creatinine for Radiology kdr 06/18 11:32 Order name: Hepatic Function kdr 06/18 11:32 Order name: Urinalysis kdr 06/18 11:32 Order name: Urine Culture [facility] 06/18 11:32 Order name: CT Abd/Pelvis - IV Contrast Only [facility] 06/18 11:43 Order name: Urine Dipstick--Ancillary (enter results) 06/18 11:52 Order name: Urine Dipstick-Ancillary; Complete Time: 12:14 [facility] 06/18 12:04 Order name: Urine Microscopic Only; Complete Time: 12:14 [facility] 06/18 12:05 Order name: CBC with Automated Diff; Complete Time: 12:14 [facility] 06/18 12:11 Order name: Creatinine (Radiology Only); Complete Time: 12:14 [facility] 06/18 12:24 Order name: Basic Metabolic Panel; Complete Time: 12:29 [facility] 06/18 12:24 Order name: Liver (Hepatic) Function; Complete Time: 12:29 [facility] 06/18 11:32 Order name: IV Saline Lock; Complete Time: 11:40 [facility] 06/18 11:32 Order name: Labs collected and sent; Complete Time: 11:40 [facility] 06/18 13:56 Order name: CT; Complete Time: 15:44 [facility] Administered Medications: No medications were administered Disposition: 06/18/19 12:45 Hospitalization ordered by Crys Yepez for Inpatient Admission. Preliminary diagnosis is Acute Renal Failure. - Bed requested for Telemetry/MedSurg (Inpatient). - Status is Inpatient Admission. sg - Condition is Fair. - Problem is new. - Symptoms are unchanged. UTI on Admission? No Signatures: Dis[facility] Carmella Ramirez RN RN Jem Salvador RN RN Edison Thomas MD MD [facility] Marleny Gibbs, SCHOOL PSYCHOLOGIST ASSISTANT-C SCHOOL PSYCHOLOGIST ASSISTANT-Csnw Wandy Best RN RN tw2 Sarina Ozuna Corrections: (The following items were deleted from the chart) 13:14 12:45 Hospitalization Ordered by Crys Yepez MD for Inpatient Admission. Preliminary eb diagnosis is Acute Renal Failure. Bed requested for Telemetry/MedSurg (Inpatient). Status is Inpatient Admission. Condition is Fair. Problem is new. Symptoms are unchanged. UTI on Admission? No. kdr 17:09 13:14 06/18/2019 12:45 Hospitalization Ordered by Crys Yepez MD for Inpatient dw Admission. Preliminary diagnosis is Acute Renal Failure. Bed requested for [facility] ER HOLD. Status is Inpatient Admission. Condition is Fair. Problem is new. Symptoms are unchanged. UTI on Admission? No. eb 18:25 17:09 06/18/2019 12:45 Hospitalization Ordered by Crys Yepez MD for Inpatient sg Admission. Preliminary diagnosis is Acute Renal Failure. Bed requested for Telemetry/MedSurg (Inpatient). Status is Inpatient Admission. Condition is Fair. Problem is new. Symptoms are unchanged. UTI on Admission? No. dw
--- NOTE | 2019-06-18 12:46 | ER ---
Nurse's Notes [facility] Name: Marcella Feldman Age: 84 yrs Sex: Female : 1935 Arrival Date: 06/18/2019 Time: 11:00 Bed 5 Private MD: Diagnosis: Acute Renal Failure Presentation: 06/18 11:00 Presenting complaint: EMS states: pt was being helped getting dressed this morning, tw2 normally walks with walker, she had an assisted fall with daughter to the floor, but her head did hit a folding closet door, pt recently treated for UTI, sepsis, vs stable, hx: afib, dm BGL 110. Transition of care: patient was not received from another setting of care. Onset of symptoms was June 18, 2019. Risk Assessment: Do you want to hurt yourself or someone else? Patient reports no desire to harm self or others. Initial Sepsis Screen: Does the patient meet any 2 criteria? No. Patient's initial sepsis screen is negative. Does the patient have a suspected source of infection? No. Patient's initial sepsis screen is negative. Care prior to arrival: IV initiated. 18 GA, in the left antecubital area. 11:00 Method Of Arrival: EMS: [facility] tw2 11:00 Acuity: DINESH 3 tw2 11:13 Note pts daughter at bedside requests urine to be tested for uti at this time, provider tw2 notified. Triage Assessment: 11:13 General: Appears in no apparent distress. obese, Behavior is calm, cooperative, tw2 appropriate for age. Pain: Complains of pain in thoracic area, lumbar area, left low back, left mid back, right mid back and right low back. Historical: - Allergies: 11:13 Ciprofloxacin; tw2 11:13 Lyrica; tw2 11:13 Stadol; tw2 11:13 butorphanol tartrate; tw2 - Home Meds: 11:13 Eleanor 180 mg Oral Tb24 1 tab once daily [Active]; allopurinol 300 mg Oral Tb24 0.5 tw2 tab once daily [Active]; Coreg 12.5 mg Oral Tb24 1 tab 2 times per day [Active]; Ecotrin 325 mg Oral chew once daily [Active]; Fish Oil 1,000 mg Oral cap daily [Active]; furosemide 40 mg Oral Tb24 once daily [Active]; gabapentin Oral [Active]; hydrocodone-acetaminophen 10-325 mg Oral Tb24 1 tab daily [Active]; Iron CR 325 mg Oral 3 tab daily [Active]; Januvia 50 mg Oral Tb24 once daily [Active]; Levemir 10 subcutaneous 10 units [Active]; nateglinide Oral before each meal [Active]; Basilia-Maisha 0.8 mg Oral Tb24 daily [Active]; tramadol 50 mg Oral Tb24 1 tab every 4-6 hours [Active]; Vitamin B 100 mg daily [Active]; - PMHx: 11:13 Atrial Fib; ADD/ADHD; Arthritis; CHF; Diabetes - IDDM; Gout; Hypertension; Irregular tw2 heart rate; lymphedema; Pneumonia; skin cancer; - Immunization history:: Adult Immunizations. - Social history:: Smoking status: . - Ebola Screening: : Patient negative for fever greater than or equal to 101.5 degrees Fahrenheit, and additional compatible Ebola Virus Disease symptoms. Screenin:14 Abuse screen: Denies threats or abuse. Nutritional screening: No deficits noted. tw2 Tuberculosis screening: No symptoms or risk factors identified. Fall Risk Secondary diagnosis (15 points) impaired mobility, Ambulatory Aid- Crutches/Cane/Walker (15 pts). Assessment: 11:43 Reassessment: Patient appears in no apparent distress at this time. Patient and/or sg family updated on plan of care and expected duration. Pain level reassessed. 13:34 Reassessment: Patient appears in no apparent distress at this time. Patient and/or tw2 family updated on plan of care and expected duration. Pain level reassessed. pt back from CT at this time, NAD, pts daughter at bedside at this time. 14:33 Reassessment: Patient appears in no apparent distress at this time. Patient and/or tw2 family updated on plan of care and expected duration. Pain level reassessed. Vital Signs: 11:11 BP 132 / 67; Pulse 78; Resp 13; Temp 97.5(TE); Pulse Ox 95% on R/A; Weight 90.72 kg (R);tw2 12:00 BP 134 / 73; Pulse 82; Resp 17; Pulse Ox 94% on R/A; tw2 13:30 BP 137 / 92; Pulse 75; Resp 17; Pulse Ox 95% on R/A; tw2 14:32 BP 153 / 81; Pulse 78; Resp 14; Pulse Ox 98% on R/A; tw2 17:41 BP 152 / 88; Pulse 72; Resp 16; Temp 97.8; Pulse Ox 96% on R/A; sg ED Course: 10:00 Maintain EMS IV. Dressing intact. Site clean \T\ dry. IV is patent, is intact, with sg fluids infusing freely, with good blood return, Patient admitted, IV remains in place. intact, No redness/swelling at site. Pressure dressing applied. 11:00 Patient arrived in ED. sg 11:00 Bed in low position. Call light in reach. Side rails up X2. Adult w/ patient. Cardiac tw2 monitor on. Pulse ox on. NIBP on. 11:02 Edison Thomas MD is Attending Physician. kdr 11:05 Arm band placed on. tw2 11:10 Triage completed. tw2 11:15 Jem Salvador RN is Primary Nurse. sg 11:30 Initial lab(s) drawn, by oh, sent to lab. Urine collected: straight cath specimen, sg clear, Amount Returned: 500mL. Straight cath inserted, using sterile technique, 16 Fr. Specimen obtained. Returned clear yellow urine. Patient tolerated well. performed by technology training associatekai Hendrix. 11:57 Radiology exam delayed due to lab results not completed at this time. (BUN/Creatinine). bq 12:19 Radiology exam delayed due to lab results not completed at this time. (BUN/Creatinine). bq 12:38 Crys Yepez MD is Hospitalizing Provider. kdr 17:32 No provider procedures requiring assistance completed. sg Administered Medications: No medications were administered Outcome: 12:45 Decision to Hospitalize by Provider. kdr 17:42 Admitted to Med/surg accompanied by tech, via wheelchair, with chart, Report called to christiano Ashby RN 17:42 Condition: stable 17:42 Instructed on the need for admit, safety practices. 18:25 Patient left the ED. Signatures: Jem Salvador, SUZAN RN Edison Thomas MD MD kdr Lizbeth Salinas Tara, RN RN tw2
--- NOTE | 2019-06-18 13:53 | RAD REPORT ---
EXAM DESCRIPTION: CT - Abdomen Pelvis Wo Contrast - 06/18/2019 1:21 pm CLINICAL HISTORY: Abdominal pain. Low back pain s/p UTI COMPARISON: Abdomen Pelvis Wo Contrast dated 09/12/2017 TECHNIQUE: CT imaging of the abdomen and pelvis was performed without contrast. Solid organ, bowel a nd vascular assessment is limited due to lack of IV and oral contrast. All CT scans are performed using dose optimization technique as appropriate and may include automated exposure control or mA/KV adjustment according to patient size. FINDINGS: The small right pleural effusion identified. Linear atelectasis identified in both lung ba ses, slightly larger on the right. Noncontrast assessment of the liver demonstrates no focal lesion. No biliary dilatation. Cholecystect merlene clips. The spleen, adrenal glands and kidneys demonstrate no acute process. Pancreatic atrophy is seen. Trace free fluid is seen along the right aspect of the liver edge. Moderate fecal retention se en in the colon with sigmoid diverticulosis evident. No bowel obstruction or free air. Mild retroperitoneal adenopathy detected. Levoscoliosis of the lum bar spine with degenerative changes present. No paraspinal mass or hematoma. IMPRESSION: Small right pleural effusion. Moderate degenerative changes are present lumbar spine. Mild retroperitoneal lymphadenopathy. A limited non-contrast examination was performed as detailed.
--- NOTE | 2019-06-18 18:05 | P.HP ---
Certification for Inpatient Patient admitted to: Inpatient With expected LOS: >2 Midnights Patient will require the following post-hospital care: None Practitioner: I am a practitioner with admitting privileges, knowledge of patient current condition, hospital course, and medical plan of care. Services: Services provided to patient in accordance with Admission requirements found in Title 42 Section 412.3 of the Code of Federal Regulations Patient History Date of Service: 06/18/19 Primary Care Provider: Dr. Judd Reason for admission: Acute renal failure History of Present Illness: Pt has just recently recovered from urosepsis. Doing well at home and then began having more and more back pain, difficulty ambulating. Daughter states pt has become progressively more weak and is unable to ambulate well second to pain. Allergies ciprofloxacin HCl [From Cipro] Allergy (Intermediate, Verified 06/04/19 22:43) Itching/Hives/Rash butorphanol tartrate [From Stadol] Adverse Reaction (Mild, Verified 06/04/19 22: 42) "went crazy" pregabalin [From Lyrica] Adverse Reaction (Mild, Verified 06/04/19 22:43) "got mean" Home Medications: Allopurinol 150 mg PO DAILY 08/04/13 Savery-3 Fatty Acids/Fish Oil [Fish Oil 1,000 mg Softgel] 1,000 mg PO DAILY 11/25 Ferrous Sulfate [Iron] 325 mg PO TID 08/22/16 Fexofenadine HCl [Eleanor Allergy] 60 mg PO DAILYPRN PRN 08/22/16 Carvedilol [Coreg*] 12.5 mg PO BID #60 tab 08/25/16 Aspirin Enteric Coated [Ecotrin] 325 mg PO DAILY 09/12/17 Furosemide [Lasix*] 40 mg PO DAILY 09/12/17 Sitagliptin Phosphate [Januvia] 50 mg PO DAILY 09/12/17 Gabapentin [Neurontin] 300 mg PO BEDTIME 06/30/18 Vitamin B Complex [Balance B-100] 1 tab PO DAILY 06/30/18 Pantoprazole [Protonix Tab] 40 mg PO BID #60 tab 07/01/18 Lactobacillus Combo No.13 [Probiotic Pearls Complete] 1 tab PO DAILY 06/04/19 Polyethylene Glycol 3350 [Miralax] 17 gm PO TID PRN 06/04/19 Cephalexin [Keflex] 500 mg PO TID 3 Days #15 cap 06/09/19 - Past Medical/Surgical History Diabetic: Yes -: HTN -: CHF -: Atrial fibrillation -: 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 -: Chronic Anemia -: Allergic rhinitis -: Surgical Menopause -: History of GI bleed in the past -: Chronic wound to the lower ext with Lymphedema -: Cholecystectomy -: Cataract surgery -: Hysterectomy Psychosocial/ Personal History: Lives with her daughter, , Children-3 - Family History Father -: Heart disease, Hypertension Notes: Heart attack Mother -: Hypertension, Stroke - Social History Alcohol use: No CD- Drugs: No Caffeine use: No Review of Systems General: Weakness, Malaise Eyes: Unremarkable ENT: Unremarkable Respiratory: Unremarkable Cardiovascular: Unremarkable Gastrointestinal: Unremarkable Genitourinary: Other (recent urosepsis), As per HPI Musculoskeletal: Back Pain Integumentary: Bruising (from recent iv placement) Neurological: Weakness Physical Examination - Vital Signs Temperature: 97.8 F Blood Pressure: 152/88 Pulse: 72 Respirations: 16 Pulse Ox (%): 96 - Physical Exam General: Alert, In no apparent distress, Oriented x3, Obese HEENT: Atraumatic, Normocephalic Neck: Supple, 2+ carotid pulse no bruit Respiratory: Clear to auscultation bilaterally, Normal air movement Cardiovascular: Edema, Irregular heart rate/rhythm, Systolic murmur Capillary refill: <2 Seconds Gastrointestinal: Normal bowel sounds, Soft and benign Musculoskeletal: No clubbing, No swelling, Other (moderate back pain, bilaterally) Integumentary: Other (ecchymosis from recent iv procedures, cool feet, mild loss of sensationto feet) - Studies Laboratory Data (last 24 hrs) 06/18/19 11:30: Creatinine 3.06 H 06/18/19 11:30: WBC 7.8, Hgb 10.0 L, Hct 31.2 L, Plt Count 149 L D 06/18/19 11:30: Sodium 143, Potassium 4.2, BUN 56 H, Creatinine 3.09 H D, Glucose 101, Total Bilirubin 0.6, AST 12 L, ALT 12, Alkaline Phosphatase 119 H Assessment and Plan - Problems (Diagnosis) (1) Chronic anemia Current Visit: No Status: Active (2) Chronic back pain Current Visit: No Status: Active (3) Abnormal renal function Onset Date: 09/13/17 Current Visit: No Status: Acute Discharge Plan: Home Plan to discharge in: 48 Hours - Advance Directives Does patient have a Living Will: Yes Does patient have a Durable POA for Healthcare: Yes
[2019-06-18] MEDS: NATEGLINIDE 60 MG TAB PO SCH ×2 (18:24→23:06)
[2019-06-18] MEDS ORDERED: GLUCAGON 1 MG/VIAL IM PRN (18:24)
[2019-06-18] MEDS ORDERED: IPRATROPIUM BROM 0.5MG/2.5ML NEB PRN (18:24)
[2019-06-18] MEDS ORDERED: ACETAMINOPHEN 500 MG TAB PO PRN (18:24)
[2019-06-18] MEDS ORDERED: ALBUTEROL 2.5 MG/3 ML NEB SOL NEB PRN (18:24)
[2019-06-18] MEDS ORDERED: D50W 25 GM/50 ML SYRINGE IV PRN (18:24)
[2019-06-18] MEDS ORDERED: CARVEDILOL 12.5 MG TAB PO ONE (19:00)
[2019-06-18] MEDS ORDERED: FLUCONAZOLE 100 MG TAB PO ONE (19:00)
[2019-06-18] MEDS: NA CHLORIDE 0.9% 1,000 ML IV SCH (20:22)
[2019-06-18] MEDS: GABAPENTIN 300 MG CAP PO SCH (20:23)
[2019-06-19 06:34] LABS: Absolute Lymphocytes (CBC) 1.6 K/uL (0.7-4.9); Basophils % 0.6 % (0-1.3); Hematocrit 29.3 % (36.0-45.0); MPV 11.4 fL (7.6-11.3); RBC Red Blood Cell Count 2.93 M/uL (3.86-4.86)
[2019-06-19 06:41] LABS: Potassium 4.2 mmol/L (3.5-5.1)
[2019-06-19] MEDS: INSULIN GLARGINE 100 UNITS/ML SQ SCH (08:00)
[2019-06-19] MEDS: SITAGLIPTIN PHOS 100 MG TAB PO SCH (10:00)
[2019-06-19] MEDS: NATEGLINIDE 60 MG TAB PO SCH ×3 (10:01→17:15)
[2019-06-19] MEDS: FOLIC ACID 1 MG in NA CHLORIDE 0.9% 50 ML IV SCH (10:02)
--- NOTE | 2019-06-19 11:34 | EKG ---
Test Date: 2019-06-18 Test Time: 17:23:46 Interior Block Wirer: MEASUREMENT RESULTS: Intervals: Rate: 83 ND: QRSD: 110 QT: 396 QTc: 465 [place]: P: ND: QRS: -23 T: 240 INTERPRETIVE STATEMENTS: Atrial fibrillation Low voltage QRS Incomplete right bundle branch block Nonspecific T wave abnormality, probably digitalis effect Abnormal ECG Compared to ECG 06/04/2019 18:37:53 Low QRS voltage now present T-wave abnormality now present Myocardial infarct finding no longer present Electronically Signed On 06-19-19 11:31:17 CDT by Arnav Jaimes
[2019-06-19] MEDS: NA CHLORIDE 0.9% 1,000 ML IV SCH (17:15)
[2019-06-19] MEDS ORDERED: D50W 25 GM/50 ML SYRINGE IV PRN (18:57)
[2019-06-19] MEDS ORDERED: GLUCAGON 1 MG/VIAL IM PRN (18:57)
[2019-06-19] MEDS: GABAPENTIN 300 MG CAP PO SCH (20:23)
[2019-06-19] MEDS: TEMAZEPAM 15 MG CAP PO PRN (20:23)
[2019-06-19] MEDS: SMZ./TMP. 800/160 MG TABLET PO SCH (20:23)
[2019-06-19] MEDS: INSULIN -REGULAR HUMAN 50 UNIT/0.5 ML ML SQ SCH (21:00)
--- NOTE | 2019-06-20 03:49 | HP ---
Date of Admission: 06/18/2019 Entrance Complaint: Back pain, generalized weakness. History Of Present Illness: The patient presented to the emergency room with the above outlined symp toms. According to her daughter, patient is doing quite well since she was hospitalized approximatel y 2 weeks ago with acute urosepsis. She finished her antibiotics on Wednesday. She has been undergoing PT and OT, and in fact, according to her daughter, again, she has been doing quite well with the phy sical therapy. However, just prior to coming to the ER, she felt quite weak. She kind of slid to th e floor, had difficulty moving, felt really weak and that is when EMS was called and she was brought to the emergency room; at which time, she had an elevated creatinine. She has had minimal elevations over the past few weeks and over the past few years. She also had a suggestion of CHF on her enzyme s. Her main pain was in the lumbosacral area. Past History: As mentioned, the patient is admitted with urosepsis, bacteremia approximately 2 weeks ago. Has been doing well since. She has had numerous hospitalizations over the past few years rang ing from poorly controlled diabetes to cardiovascular disease. Family History: Noncontributory. Social History: Nonsmoker, nondrinker. Physical Examination: General: Patient is a rather lethargic elderly female with stable vital signs. Head and Neck: Normocephalic. Pupils equal and reactive to light and accommodation. Fundi negative . Trachea midline. Thyroid not palpable. ENT: Negative. Chest: Occasional rales at both bases. Adequate air entry and movement. Cardiovascular: PMI in midclavicular line. Heart sounds normal. Peripheral pulses present and equa l bilaterally. Abdomen: No organomegaly. Bowel sounds present. Extremities: Decreased straight leg raising bilaterally and slight tenderness over the lumbosacral a yenni. Moderately dehydrated. Good tone and movement in the upper extremities. Rectal: Deferred. Pelvic: Deferred. Impression: Back pain, probably secondary to musculoskeletal; renal failure, acute on chronic; dehyd ration; insulin-dependent diabetes mellitus, good control; hypertension, good control. Plan: Patient will be admitted and placed on IV fluids. Monitoring her creatinine and depending on the results, may require nephrology consultation. HR/MODL Voice ID: [id number]
--- NOTE | 2019-06-20 03:55 | HP ---
Date of Admission: 06/18/2019 The patient states she feels much better tonight. She has been hydrated. Creatinine is improved moira ewhat. She will be once again started on her Bactrim as she has some bacteriuria, awaiting the cultu re. Due to the location of the back pain and a rather sudden onset, the possibility of compression f racture is to be considered and x-rays of this area will be done. HR/MODL Voice ID: [id number]
[2019-06-20 06:34] LABS: Absolute Lymphocytes (CBC) 2.3 K/uL (0.7-4.9); Basophils % 0.7 % (0-1.3); Hematocrit 31.9 % (36.0-45.0); Lymphocytes % 24.8 % (15.3-44.8); MPV 11.5 fL (7.6-11.3); RBC Red Blood Cell Count 3.17 M/uL (3.86-4.86)
[2019-06-20 07:03] LABS: Potassium 4.1 mmol/L (3.5-5.1)
[2019-06-20] MEDS: INSULIN -REGULAR HUMAN 50 UNIT/0.5 ML ML SQ SCH ×4 (07:30→23:33)
[2019-06-20] MEDS: INSULIN GLARGINE 100 UNITS/ML SQ SCH (08:00)
[2019-06-20] MEDS: SITAGLIPTIN PHOS 100 MG TAB PO SCH (08:30)
[2019-06-20] MEDS: NATEGLINIDE 60 MG TAB PO SCH ×3 (08:31→16:53)
[2019-06-20] MEDS: SMZ./TMP. 800/160 MG TABLET PO SCH (08:31)
[2019-06-20] MEDS: FOLIC ACID 1 MG in NA CHLORIDE 0.9% 50 ML IV SCH (09:46)
[2019-06-20] MEDS: NA CHLORIDE 0.9% 1,000 ML IV SCH ×2 (10:24→13:06)
--- NOTE | 2019-06-20 10:37 | RAD REPORT ---
EXAM DESCRIPTION: RAD - Lumbar Spine 3 Views - 06/20/2019 9:37 am CLINICAL HISTORY: lower back pain Radiculopathy COMPARISON: No comparisons FINDINGS: Vertebral body heights appear maintained. No compression fracture noted. Disc thinning is present with small endplate osteophytes at L5-S1. No spondylolysis or spondylolisthesis. Mild levoscoliosis lumbar spine. Cholecystectomy clips. IMPRESSION: Mild lumbosacral degenerative changes.
--- NOTE | 2019-06-20 14:50 | P.CNS ---
Date of Consult: 06/20/19 Reason for Consult: RANCHO Primary Care Provider: Dr. Judd Chief Complaint: Acute renal failure History of Present Illness: An 84 Y/o woman with PMhx of HTN, CHF, lymphedema and CKD IIIb/IV baseline Cr 1.9 Pt was admitted for weakness and difficult ambulation Pt was recently treated for Urosepsis Found to have Rancho with Cr 3.0 in ER that improved to 2.1 on IVF no chest pain, palpitation, nausea or vomiting Allergies ciprofloxacin HCl [From Cipro] Allergy (Intermediate, Verified 06/18/19 20:33) Itching/Hives/Rash butorphanol tartrate [From Stadol] Adverse Reaction (Mild, Verified 06/18/19 20: 33) "went crazy" pregabalin [From Lyrica] Adverse Reaction (Mild, Verified 06/18/19 20:33) "got mean" morphine Adverse Reaction (Unknown, Verified 06/18/19:33) UNKNOWN Home Medications: Allopurinol 150 mg PO DAILY 08/04/13 Venus-3 Fatty Acids/Fish Oil [Fish Oil 1,000 mg Softgel] 1,000 mg PO DAILY 11/25 Ferrous Sulfate [Iron] 325 mg PO TID 08/22/16 Fexofenadine HCl [Eleanor Allergy] 60 mg PO DAILYPRN PRN 08/22/16 Carvedilol [Coreg*] 12.5 mg PO BID #60 tab 08/25/16 Furosemide [Lasix*] 40 mg PO DAILY 09/12/17 Sitagliptin Phosphate [Januvia] 50 mg PO DAILY 09/12/17 Gabapentin [Neurontin] 300 mg PO BEDTIME 06/30/18 Vitamin B Complex [Balance B-100] 1 tab PO DAILY 06/30/18 Pantoprazole [Protonix Tab] 40 mg PO BID #60 tab 07/01/18 Lactobacillus Combo No.13 [Probiotic Pearls Complete] 1 tab PO DAILY 06/04/19 Polyethylene Glycol 3350 [Miralax] 17 gm PO TID PRN 06/04/19 Acetaminophen [Tylenol Extra Strength] 1 tab PO Q4H PRN 06/19/19 Aspirin [Ecotrin 81 MG] 1 tab PO DAILY 06/19/19 Nateglinide [Starlix*] 1 tab PO DAILY 06/19/19 Smz./Tmp. 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 -: Chronic Anemia -: Allergic rhinitis -: Surgical Menopause -: History of GI bleed in the past -: Chronic wound to the lower ext with Lymphedema -: Cholecystectomy -: Cataract surgery -: Hysterectomy Psychosocial/ Personal History: Lives with her daughter, , Children-3 - Family History Father Medical History: Heart disease, Hypertension Notes: Heart attack Mother Medical History: Hypertension, Stroke BROTHER/SISTER Medical History: Diabetes - Social History Smoking Status: Never smoker Alcohol use: No CD- Drugs: No Caffeine use: No Place of Residence: Home Physical Examination Temp Pulse Resp BP Pulse Ox 97.1 F 105 H 17 157/75 H 95 06/20/19 12:00 06/20/19 12:00 06/20/19 12:00 06/20/19 12:00 06/20/19 12:00 General: Alert, In no apparent distress HEENT: Atraumatic Neck: Supple, Without JVD or thyroid abnormality Respiratory: Diminished, Rhonchi/gurgles Cardiovascular: Regular rate/rhythm, Normal S1 S2, No gallops, No rubs, No murmurs, Edema Gastrointestinal: Normal bowel sounds Musculoskeletal: Other (LE edema +1, with bluish dicoloration ) - Problems (1) Diabetes mellitus Onset Date: 08/24/16 Current Visit: No Status: Active (2) Lymphedema Current Visit: No Status: Acute (3) Acute kidney injury superimposed on chronic kidney disease Current Visit: No Status: Acute Conclusions/Impression: AKion CKD Cr improved near baseline UA : trace blood, could be traumatic , no protein Will Dc IVF will give 1 dose of lasix Chronic anemia Hb stable will send for W/U Severe COPD cont inhalers DM as per primary Hx of UTI culture no growth Will dc bactrim, pt is allergic to Cipro will start amoxicillin Will remove kovacs tomorrow if RFT stable
[2019-06-20] MEDS ORDERED: FUROSEMIDE 20 MG/ 2ML VIAL IV ONE (15:00)
[2019-06-20] MEDS ORDERED: CIPROFLOXACIN HCL 250 MG TAB PO SCH (15:00)
[2019-06-20] MEDS: AMOXICILLIN TRIHYDR 250 MG CAP PO SCH ×2 (15:36→20:45)
--- NOTE | 2019-06-20 16:37 | RAD REPORT ---
EXAM DESCRIPTION: US - Renal Ultrasound-Complete - 06/20/2019 4:18 pm CLINICAL HISTORY: Acute renal insufficiency COMPARISON: 2012 FINDINGS: The right kidney measures 10 cm with an increased echotexture. Cortical thinning The left kidney measures 11 cm with an increased echotexture. Cortical thinning Hydronephrosis is not seen. Fuentes catheter is present within a decompressed bladder IMPRESSION: Increased renal echotexture consistent with parenchymal disease
[2019-06-20] MEDS: GABAPENTIN 300 MG CAP PO SCH (20:46)
[2019-06-21 04:46] LABS: Absolute Lymphocytes (CBC) 2.2 K/uL (0.7-4.9); Basophils % 0.8 % (0-1.3); Hematocrit 28.9 % (36.0-45.0); Lymphocytes % 23.1 % (15.3-44.8); MPV 11.6 fL (7.6-11.3); RBC Red Blood Cell Count 2.89 M/uL (3.86-4.86)
[2019-06-21 04:53] LABS: Potassium 4.6 mmol/L (3.5-5.1)
[2019-06-21] MEDS: INSULIN -REGULAR HUMAN 50 UNIT/0.5 ML ML SQ SCH ×4 (07:30→21:00)
[2019-06-21] MEDS: INSULIN GLARGINE 100 UNITS/ML SQ SCH (08:00)
[2019-06-21] MEDS: SITAGLIPTIN PHOS 100 MG TAB PO SCH (08:23)
[2019-06-21] MEDS: NATEGLINIDE 60 MG TAB PO SCH ×3 (08:23→17:05)
[2019-06-21] MEDS: AMOXICILLIN TRIHYDR 250 MG CAP PO SCH ×2 (08:24→21:34)
[2019-06-21] MEDS: FOLIC ACID 1 MG in NA CHLORIDE 0.9% 50 ML IV SCH (10:25)
--- NOTE | 2019-06-21 14:45 | PN ---
Date of Progress Note: 06/20/2019 Patient basically status quo, seen by Nephrology, who is making some adjustments in an attempt to be able to send her home. However, overall condition is still quite weak and I think the septic episode a couple of weeks ago has taken significant on her general well-being. Catheters to be r emoved in the morning, and if tolerated, she may be able to be discharged. HR/MODL Voice ID: [id number] Report ID: [id number]
--- NOTE | 2019-06-21 20:06 | PN ---
Date of Progress Note: 06/21/2019 Patient has episodes of marked sleepiness, no energy. I feel this was related to her drop in blood s ugar. This may also be related to her irregular sleeping pattern. In any event when her blood sugar came back up, she felt considerably better. Her Fuentes will be discontinued. Her creatinine has imp roved. I will have social services manager discuss her disposition with her daughter and physical therapy wi ll be instituted today. She will probably be discharged either to SNF or home tomorrow. HR/MODL Voice ID: [id number] Report ID: [id number]
--- NOTE | 2019-06-22 03:16 | PN ---
Date of Progress Note: 06/21/2019 Subjective: Patient was admitted with acute kidney injury secondary to prerenal. Physical Examination: Vital Signs: Blood pressure 114/72, pulse 85. Patient has good urine output of 2200. Chest: Clear to auscultation. Heart: S1 and S2. Regular. Systolic murmur. Abdomen: Soft, nontender. Extremities: No edema. Laboratory Data: H and H 9.5/28.9. Sodium 146, potassium 4,6, BUN 41, creatinine 1.7 and trending down, calcium 9.4. Urinalysis; normal-sized kidney 07/14. Assessment And Plan: 1. Acute kidney injury secondary to prerenal, in the recovery phase. I am going to discontinue IV fluid. We will watch the patient for improvement. 2. Hypertension, controlled, optimal. Currently off blood pressure medication. We will continue. Keep holding MILKA inhibitor. 3. Urinary tract infection. Continue current antibiotic. MAI Voice ID: [id number] Report ID: [id number] MTDD
[2019-06-22 05:38] LABS: Absolute Lymphocytes (CBC) 2.2 K/uL (0.7-4.9); Hematocrit 31.2 % (36.0-45.0); Lymphocytes % 25.9 % (15.3-44.8); RBC Red Blood Cell Count 3.08 M/uL (3.86-4.86)
[2019-06-22] MEDS: INSULIN -REGULAR HUMAN 50 UNIT/0.5 ML ML SQ SCH ×4 (07:30→21:56)
[2019-06-22] MEDS: INSULIN GLARGINE 100 UNITS/ML SQ SCH (08:00)
[2019-06-22] MEDS: SITAGLIPTIN PHOS 100 MG TAB PO SCH (09:00)
[2019-06-22] MEDS: FOLIC ACID 1 MG in NA CHLORIDE 0.9% 50 ML IV SCH (09:00)
[2019-06-22] MEDS: NATEGLINIDE 60 MG TAB PO SCH ×3 (09:28→17:39)
[2019-06-22] MEDS: AMOXICILLIN TRIHYDR 250 MG CAP PO SCH ×2 (09:29→21:57)
[2019-06-22] MEDS ORDERED: POLYETHYL GLY 3350 17 GM/DOSE PO PRN (14:47)
[2019-06-22] MEDS ORDERED: ACETAMINOPHEN 500 MG TAB PO PRN (14:47)
[2019-06-22] MEDS: CARVEDILOL 12.5 MG TAB PO SCH (17:49)
[2019-06-22] MEDS: TEMAZEPAM 15 MG CAP PO PRN (21:57)
[2019-06-22] MEDS: FERROUS SULFATE 325 MG TAB PO SCH (21:57)
--- NOTE | 2019-06-23 02:34 | PN ---
Date of Progress Note: 06/22/2019 Subjective: Patient was admitted with acute kidney injury secondary to prerenal , more or less after eating. Blood pressure is still not controlled on the upper side. Physical Examination: Vital Signs: Blood pressure 177/95, pulse of 120, afebrile. Chest: Clear to auscultation. Heart: S1, S2. Regular. Abdomen: Soft, nontender. Extremities: Trace edema. Laboratory Data: WBC 8.4, H and H 10/31.2, platelets 142. Sodium 146, potassium 5.5, bicarb 21, BUN 37, creatinine 1.6. Medications: 1. Insulin. 2. Amoxicillin. 3. Carvedilol. 4. Trileptal. 5. Ferrous sulfate. 6. Breathing treatment. 7. Tylenol. 8. Temazepam. Assessment And Plan: 1. Acute kidney injury secondary to prerenal, recovered, resolved back to close to baseline. We will discontinue IV fluid. 2. Hypertension. The patient just started on carvedilol. We will follow up. 3. Deconditioning. Continue PT/OT. 4. Urinary tract infection. Continue current tx dose adjusted 5. The patient is cleared from the renal standpoint for d/c planing . MAI Voice ID: [id number] Report ID: [id number] MTDVikki
[2019-06-23 06:33] LABS: Potassium 4.7 mmol/L (3.5-5.1)
[2019-06-23] MEDS: INSULIN -REGULAR HUMAN 50 UNIT/0.5 ML ML SQ SCH ×4 (07:30→20:16)
[2019-06-23] MEDS: INSULIN GLARGINE 100 UNITS/ML SQ SCH (08:00)
[2019-06-23 08:04] LABS: Basophils % 1.2 % (0-1.3); Hematocrit 30.3 % (36.0-45.0); Lymphocytes % 22.2 % (15.3-44.8); RBC Red Blood Cell Count 3.04 M/uL (3.86-4.86)
[2019-06-23] MEDS: SITAGLIPTIN PHOS 100 MG TAB PO SCH (08:20)
[2019-06-23] MEDS: AMOXICILLIN TRIHYDR 250 MG CAP PO SCH ×2 (08:20→20:15)
[2019-06-23] MEDS: ALLOPURINOL 300 MG TAB PO SCH (08:20)
[2019-06-23] MEDS: NATEGLINIDE 60 MG TAB PO SCH ×3 (08:21→16:31)
[2019-06-23] MEDS: CARVEDILOL 12.5 MG TAB PO SCH ×2 (08:21→20:15)
[2019-06-23] MEDS: DOCOSAHEXANOIC AC/EPA 1000 MG PO SCH (08:21)
[2019-06-23] MEDS: FERROUS SULFATE 325 MG TAB PO SCH ×3 (08:21→20:15)
[2019-06-23] MEDS: ASPIRIN EC 81 MG TAB PO SCH (08:21)
[2019-06-23] MEDS ORDERED: FISH OIL PO SCH (09:00)
[2019-06-23] MEDS ORDERED: OMEGA PO SCH (09:00)
[2019-06-23] MEDS ORDERED: FATTY ACIDS PO SCH (09:00)
[2019-06-23 10:12] LABS: Anisocytosis 1+; Blood Morphology Comment NOTED (NOT SEEN); Elliptocytes 1+; Platelet Estimate ADEQ
--- NOTE | 2019-06-23 13:11 | P.PN ---
Subjective Date of Service: 06/23/19 Primary Care Provider: Dr. Judd Chief Complaint: Acute renal failure Subjective: No C/O voiced, Tolerating diet, Ambulating, Working w/ PT, Doing well Review of Systems 10-point ROS is otherwise unremarkable Physical Examination - Vital Signs Temperature: 97.6 F Blood Pressure: 160/88 Pulse: 99 Respirations: 20 Pulse Ox (%): 98 - Physical Exam General: Alert, In no apparent distress HEENT: Atraumatic, PERRLA, EOMI Neck: Supple, JVD not distended Respiratory: Clear to auscultation bilaterally, Normal air movement Cardiovascular: Regular rate/rhythm, Normal S1 S2 Gastrointestinal: Normal bowel sounds, No tenderness Musculoskeletal: No tenderness Integumentary: No rashes Neurological: Normal speech, Normal tone, Normal affect Lymphatics: No axilla or inguinal lymphadenopathy - Studies Medications List Reviewed: Yes Assessment And Plan - Current Problems (Diagnosis) (1) Acute kidney injury superimposed on chronic kidney disease Current Visit: No Status: Acute Plan: RUFINA most likely 2.2 to Dehydration -BUN.CR now improved and IV fluids stopped -Nephrology on board and appreciate Reccs -Avoid Nephrotoxic Agents (2) Urinary tract infectious disease Current Visit: No Status: Active Plan: UA with UTI -Urine Culture with no growth however collected after starting Abx. -Pt symptomatic and thus on Amoxicillin (3) Diabetes mellitus Onset Date: 08/24/16 Current Visit: No Status: Chronic (4) History of - hypertension Current Visit: No Status: Chronic (5) Gastroesophageal reflux disease Current Visit: No Status: Chronic (6) Atrial fibrillation Onset Date: 08/24/16 Current Visit: No Status: Chronic Qualifiers: Atrial fibrillation type: chronic Qualified Code(s): I48.2 - Chronic atrial fibrillation - Plan Pending placement to [place] for SNF at this time Discharge Plan: Other Plan to discharge in: 48 Hours - Code Status/Comfort Care Code Status Assessed: Yes Critical Care: No
--- NOTE | 2019-06-23 13:58 | P.PN ---
Subjective Date of Service: 06/23/19 Primary Care Provider: Dr. Judd Chief Complaint: Acute renal failure Subjective: Improving Today feels better Cr close to baseline plan to discharge to SNF cleared for discharge from nephrology point of view Physical Examination - Vital Signs Temperature: 97.6 F Blood Pressure: 160/88 Pulse: 99 Respirations: 20 Pulse Ox (%): 98 - Physical Exam General: Alert, In no apparent distress, Obese Neck: Supple, Without JVD or thyroid abnormality Respiratory: Clear to auscultation bilaterally Cardiovascular: Regular rate/rhythm, Normal S1 S2, No rubs, No murmurs, Other ( trace edema ), Edema Gastrointestinal: Normal bowel sounds, Soft and benign Musculoskeletal: Other (fingers cyanosis ) Integumentary: Cyanosis - Studies Medications List Reviewed: Yes Assessment And Plan - Current Problems (Diagnosis) (1) Diabetes mellitus Onset Date: 08/24/16 Current Visit: No Status: Chronic (2) Lymphedema Current Visit: No Status: Acute (3) Acute kidney injury superimposed on chronic kidney disease Current Visit: No Status: Acute - Plan AKion CKD resolved Due to prerenal Azotemia UA : trace blood, could be traumatic , no protein Chronic anemia Hb stable Severe COPD cont inhalers DM as per primary Hx of UTI Conyt Abx
[2019-06-23] MEDS: TEMAZEPAM 15 MG CAP PO PRN (21:56)
[2019-06-24 04:29] LABS: Absolute Lymphocytes (CBC) 1.7 K/uL (0.7-4.9); Basophils % 0.8 % (0-1.3); Hematocrit 31.2 % (36.0-45.0); Lymphocytes % 23.7 % (15.3-44.8); MPV 11.7 fL (7.6-11.3); RBC Red Blood Cell Count 3.13 M/uL (3.86-4.86)
[2019-06-24 04:40] LABS: Potassium 4.8 mmol/L (3.5-5.1)
[2019-06-24] MEDS: INSULIN -REGULAR HUMAN 50 UNIT/0.5 ML ML SQ SCH ×4 (07:30→20:03)
[2019-06-24] MEDS: INSULIN GLARGINE 100 UNITS/ML SQ SCH (08:00)
[2019-06-24] MEDS: NATEGLINIDE 60 MG TAB PO SCH ×3 (08:00→16:43)
[2019-06-24] MEDS: AMOXICILLIN TRIHYDR 250 MG CAP PO SCH ×2 (08:58→20:02)
[2019-06-24] MEDS: ALLOPURINOL 300 MG TAB PO SCH (08:58)
[2019-06-24] MEDS: DOCOSAHEXANOIC AC/EPA 1000 MG PO SCH (08:58)
[2019-06-24] MEDS: CARVEDILOL 12.5 MG TAB PO SCH ×2 (08:58→20:02)
[2019-06-24] MEDS: SITAGLIPTIN PHOS 100 MG TAB PO SCH (08:58)
[2019-06-24] MEDS: FERROUS SULFATE 325 MG TAB PO SCH ×3 (08:58→20:02)
[2019-06-24] MEDS: ASPIRIN EC 81 MG TAB PO SCH (08:58)
[2019-06-24] MEDS ORDERED: NACHLORIDE 0.45% 1,000 ML IV SCH (09:00)
--- NOTE | 2019-06-24 11:55 | P.PN ---
Subjective Date of Service: 06/24/19 Primary Care Provider: Dr. Judd Chief Complaint: Acute renal failure Patient seen and examined at bedside today. Chart reviewed. Case discussed with nephrology. This morning patient is complaining of having some severe weakness. Refusing to take fluids at this time. Educated extensively regarding the need to take fluids due to elevated sodium and chloride. Review of Systems 10-point ROS is otherwise unremarkable Physical Examination - Vital Signs Temperature: 97 F Blood Pressure: 148/93 Pulse: 91 Respirations: 18 Pulse Ox (%): 93 - Physical Exam General: Alert, In no apparent distress HEENT: Atraumatic, PERRLA, EOMI Neck: Supple, JVD not distended Respiratory: Clear to auscultation bilaterally, Normal air movement Cardiovascular: Regular rate/rhythm, Normal S1 S2 Gastrointestinal: Normal bowel sounds, No tenderness Musculoskeletal: No tenderness Integumentary: No rashes Neurological: Normal speech, Normal tone, Normal affect Lymphatics: No axilla or inguinal lymphadenopathy - Studies Medications List Reviewed: Yes Assessment And Plan - Current Problems (Diagnosis) (1) Acute kidney injury superimposed on chronic kidney disease Current Visit: No Status: Acute Plan: RUFINA most likely 2.2 to Dehydration -BUN.CR now improved -restarted on D5 W given the fact that patient has elevated sodium and chloride. -Also encourage p.o. intake -Nephrology on board and appreciate Reccs -Avoid Nephrotoxic Agents (2) Urinary tract infectious disease Current Visit: No Status: Active Plan: UA with UTI -Urine Culture with no growth however collected after starting Abx. -Pt symptomatic and thus on Amoxicillin (3) Diabetes mellitus Onset Date: 08/24/16 Current Visit: No Status: Chronic (4) History of - hypertension Current Visit: No Status: Chronic (5) Gastroesophageal reflux disease Current Visit: No Status: Chronic (6) Atrial fibrillation Onset Date: 08/24/16 Current Visit: No Status: Chronic Qualifiers: Atrial fibrillation type: chronic Qualified Code(s): I48.2 - Chronic atrial fibrillation - Plan Pending placement to [place] for SNF at this time Discharge Plan: Other Plan to discharge in: Greater than 2 days - Code Status/Comfort Care Code Status Assessed: Yes Critical Care: No
[2019-06-24] MEDS: D5W 1,000 ML IV SCH (13:07)
[2019-06-24] MEDS: TEMAZEPAM 15 MG CAP PO PRN (20:02)
--- NOTE | 2019-06-25 01:16 | PN ---
Date of Progress Note: 06/24/2019 Chief Complaint: Acute kidney injury, nonoliguric, secondary to prerenal on chronic kidney disease Serum creatinine has been improving gradually. Patient has uncontrolled hypertension, lymphedema, and diabetes mellitus. Review of Systems: Denies fever or chills. Physical Examination: Lungs: Clear to auscultation bilaterally. Heart: S1 and S2. Abdomen: Soft, benign. Extremities: Slight edema. Laboratory Data: Hemoglobin 10.1, WBC 7.4, platelet count is 146,000. Chemistries show sodium 148, potassium 4.8, chloride 118, CO2 of 24, BUN 31, creatinine 1.31, glucose 153, calcium 10.0. Impression And Plan: Acute kidney injury. Creatinine today is improving from 3.09. The patient has underlying chronic kidney disease, stage 3. Renal function has been stable range over last 24 and 24 hours. Patient developed hypernatremia. Sodium has risen up to 148. Plan is to start half-normal saline for hydration to treat hypernatremia. The patient although may require diuretics for lymphedema control as needed. Acute kidney injury on chronic kidney disease. Monitor fluid balance and urine output. Avoid nonsteroidal anti-inflammatory medication. Diabetes mellitus. Continue insulin. Urinary tract infection. Continue antibiotics. I spent total 36 min including 26 min to coordinate care plan. SATINDER/TATUM Voice ID: [id number] Report ID: [id number] NILO
[2019-06-25] MEDS: D5W 1,000 ML IV SCH (04:34)
[2019-06-25 05:55] LABS: Absolute Lymphocytes (CBC) 2.6 K/uL (0.7-4.9); Basophils % 0.7 % (0-1.3); Hematocrit 31.3 % (36.0-45.0); Lymphocytes % 36.4 % (15.3-44.8); MPV 11.9 fL (7.6-11.3); RBC Red Blood Cell Count 3.08 M/uL (3.86-4.86)
[2019-06-25 05:56] LABS: Potassium 4.3 mmol/L (3.5-5.1)
[2019-06-25] MEDS: INSULIN -REGULAR HUMAN 50 UNIT/0.5 ML ML SQ SCH ×4 (07:30→19:59)
[2019-06-25] MEDS: ASPIRIN EC 81 MG TAB PO SCH (09:08)
[2019-06-25] MEDS: FERROUS SULFATE 325 MG TAB PO SCH ×3 (09:08→19:58)
[2019-06-25] MEDS: ALLOPURINOL 300 MG TAB PO SCH (09:08)
[2019-06-25] MEDS: NATEGLINIDE 60 MG TAB PO SCH ×3 (09:09→16:22)
[2019-06-25] MEDS: CARVEDILOL 12.5 MG TAB PO SCH ×2 (09:09→19:57)
[2019-06-25] MEDS: SITAGLIPTIN PHOS 100 MG TAB PO SCH (09:09)
[2019-06-25] MEDS: AMOXICILLIN TRIHYDR 250 MG CAP PO SCH ×2 (09:09→19:57)
[2019-06-25] MEDS: DOCOSAHEXANOIC AC/EPA 1000 MG PO SCH (09:09)
[2019-06-25] MEDS: INSULIN GLARGINE 100 UNITS/ML SQ SCH (09:09)
--- NOTE | 2019-06-25 12:01 | P.PN ---
Subjective Date of Service: 06/25/19 Primary Care Provider: Dr. Judd Chief Complaint: Acute renal failure Patient seen and examined at bedside today. Chart reviewed. Case discussed with nephrology. This morning patient is doing much better than before. Currently on D5 W. Sodium is improving markedly. Patient states that she feels much better as well. Review of Systems 10-point ROS is otherwise unremarkable Physical Examination - Vital Signs Temperature: 97.2 F Blood Pressure: 175/82 Pulse: 98 Respirations: 18 Pulse Ox (%): 100 - Physical Exam General: Alert, In no apparent distress HEENT: Atraumatic, PERRLA, EOMI Neck: Supple, JVD not distended Respiratory: Clear to auscultation bilaterally, Normal air movement Cardiovascular: Regular rate/rhythm, Normal S1 S2 Gastrointestinal: Normal bowel sounds, No tenderness Musculoskeletal: No tenderness Integumentary: No rashes Neurological: Normal speech, Normal tone, Normal affect Lymphatics: No axilla or inguinal lymphadenopathy - Studies Medications List Reviewed: Yes Assessment And Plan - Current Problems (Diagnosis) (1) Acute kidney injury superimposed on chronic kidney disease Current Visit: No Status: Acute Plan: RUFINA most likely 2.2 to Dehydration -BUN.CR now improved -on D5 W today and sodium and chloride improving markedly -Also encourage p.o. intake -Nephrology on board and appreciate Reccs -Avoid Nephrotoxic Agents (2) Urinary tract infectious disease Current Visit: No Status: Active Plan: UA with UTI -Urine Culture with no growth however collected after starting Abx. -Pt symptomatic and thus on Amoxicillin (3) Diabetes mellitus Onset Date: 08/24/16 Current Visit: No Status: Chronic (4) History of - hypertension Current Visit: No Status: Chronic (5) Gastroesophageal reflux disease Current Visit: No Status: Chronic (6) Atrial fibrillation Onset Date: 08/24/16 Current Visit: No Status: Chronic Qualifiers: Atrial fibrillation type: chronic Qualified Code(s): I48.2 - Chronic atrial fibrillation - Plan Pending placement to [place] for SNF at this time Discharge Plan: Other Plan to discharge in: 48 Hours - Code Status/Comfort Care Code Status Assessed: Yes Critical Care: No
--- NOTE | 2019-06-26 03:35 | PN ---
Date of Progress Note: 06/25/2019 Chief Complaint: Abnormal renal function test, acute kidney injury, nonoliguric, secondary to preren al azotemia in setting of chronic kidney disease. Serum creatinine has been gradually improving. Cornelius guevara has uncontrolled hypertension, lymphedema, and diabetes mellitus. Review of Systems: Denies chest pain or palpitation. Physical Examination: Lungs: Clear to auscultation bilaterally. Heart: S1 and S2. Abdomen: Soft, benign. Extremities: Edema present in both legs. Laboratory Data: BUN 31, creatinine 1.31, sodium 148, potassium 4.8, chloride 119, CO2 of 24. Impression And Plan: 1.Acute kidney injury. Creatinine level improved from 3.09. Patient has underlying chronic kidney disease, stage 3. Continue to monitor electrolytes and fluid balance. Adjust treatment accordingly. Patient developed hypernatremia. Sodium level has risen to 148. Half-normal saline was started fo r hydration to treat hypernatremia. 2.Lymphedema. Patient may require diuretics. Monitor electrolytes. Continue low-sodium diet. 3.Acute kidney injury on chronic kidney disease. Monitor fluid balance. Avoid nonsteroidal anti-in flammatory medication. EB/MODL Voice ID: [id number] Report ID: [id number]
[2019-06-26 05:16] VITALS: BMI 33.7
[2019-06-26] MEDS: D5W 1,000 ML IV SCH (05:19)
[2019-06-26] MEDS: INSULIN -REGULAR HUMAN 50 UNIT/0.5 ML ML SQ SCH ×4 (07:30→20:55)
[2019-06-26] MEDS: ASPIRIN EC 81 MG TAB PO SCH (10:43)
[2019-06-26] MEDS: DOCOSAHEXANOIC AC/EPA 1000 MG PO SCH (10:43)
[2019-06-26] MEDS: FERROUS SULFATE 325 MG TAB PO SCH ×3 (10:44→20:55)
[2019-06-26] MEDS: INSULIN GLARGINE 100 UNITS/ML SQ SCH (10:44)
[2019-06-26] MEDS: CARVEDILOL 12.5 MG TAB PO SCH ×2 (10:44→20:55)
[2019-06-26] MEDS: AMOXICILLIN TRIHYDR 250 MG CAP PO SCH ×2 (10:48→20:54)
[2019-06-26] MEDS: SITAGLIPTIN PHOS 100 MG TAB PO SCH (10:48)
[2019-06-26] MEDS: NATEGLINIDE 60 MG TAB PO SCH ×3 (10:48→18:18)
[2019-06-26] MEDS: ALLOPURINOL 300 MG TAB PO SCH (14:15)
[2019-06-26] MEDS ORDERED: TEMAZEPAM 15 MG CAP PO PRN (20:33)
--- NOTE | 2019-06-26 21:00 | PN ---
Date of Progress Note: 06/26/2019 Patient seems more stable today, somewhat more alert. Difficulty with weightbearing and complaining of discomfort in her legs when she tries. However, her chemistries are much improved. She probably can be transferred to a SNF unit, which is available after repeat lab tests in the morning. HR/MODL Voice ID: [id number] Report ID: [id number]
--- NOTE | 2019-06-27 02:30 | PN ---
Date of Progress Note: 06/26/2019 Chief Complaint: Abnormal renal function test, acute kidney injury, nonoliguric, secondary to preren al azotemia. Patient responded to IV fluids. Patient has mild hypernatremia and has normal saline, was started for hydration. Patient is improving with p.o. fluid intake. She has uncontrolled hypert ension, lymphedema, diabetes mellitus. Review of Systems: Denies new complaints. Denies nausea and vomiting. Physical Examination: Lungs: Clear to auscultation bilaterally. Heart: S1 and S2. Abdomen: Soft and benign. Extremities: Edema in both legs. Laboratory Work: Hemoglobin 10.1, WBC 7.0, platelet count is 137,000. Chemistries showed sodium 142 , potassium 4.3, chloride is 116, CO2 of 20, BUN is 26, creatinine 1.23. Impression And Plan: 1.Acute on chronic kidney injury. Patient has history of benign nephrosclerosis, hypertensive kidne y disease, creatinine has improved from 3.09. 2.Lymphedema. Patient may require diuretics. 3.Acute kidney injury on chronic kidney disease. Avoid nephrotoxic medication. Monitor fluid nicole duffy. SATINDER/MODL Voice ID: [id number] Report ID: [id number]
[2019-06-27 05:11] VITALS: TEMP 97.6
[2019-06-27] MEDS: INSULIN -REGULAR HUMAN 50 UNIT/0.5 ML ML SQ SCH ×2 (07:30→11:30)
[2019-06-27 08:39] VITALS: O2SAT 95
[2019-06-27] MEDS: INSULIN GLARGINE 100 UNITS/ML SQ SCH (09:00)
[2019-06-27] MEDS: DOCOSAHEXANOIC AC/EPA 1000 MG PO SCH (09:12)
[2019-06-27] MEDS: SITAGLIPTIN PHOS 100 MG TAB PO SCH (09:13)
[2019-06-27] MEDS: ALLOPURINOL 300 MG TAB PO SCH (09:13)
[2019-06-27] MEDS: FERROUS SULFATE 325 MG TAB PO SCH ×2 (09:13→13:10)
[2019-06-27] MEDS: ASPIRIN EC 81 MG TAB PO SCH (09:13)
[2019-06-27] MEDS: CARVEDILOL 12.5 MG TAB PO SCH (09:14)
[2019-06-27] MEDS: NATEGLINIDE 60 MG TAB PO SCH ×2 (09:15→13:08)
[2019-06-27] MEDS: AMOXICILLIN TRIHYDR 250 MG CAP PO SCH (09:25)
[2019-06-27 12:14] VITALS: BP 139/76
--- NOTE | 2019-06-28 02:13 | PN ---
Date of Progress Note: 06/27/2019 Subjective: Patient was admitted with acute kidney injury secondary to prerenal, poor intake, recove red. Kidney function has been improved significantly and patient starts improving. Physical Examination: Vital Signs: When I saw the patient, blood pressure of 139/76, pulse of 79. Afebrile. Chest: Clear to auscultation. Heart: S1, S2. Regular. Systolic murmur. Abdomen: Soft, nontender. Extremities: Trace edema. Laboratory Data: WBC 7, H and H 10.1/31.3, platelets 137. Sodium 141, potassium 4, bicarb 24, BUN 2 0, creatinine 1, GFR of 50, calcium 9.7. Medications: Current medications the patient on, it include aspirin, allopurinol, amoxicillin, insul in, Januvia. Assessment And Plan: 1.Acute kidney injury secondary to poor perfusion, toxic acute tubular necrosis, recovered, resolved . 2.Hypertension, controlled optimal. Continue current medication of blood pressure medication. 3.Urinary tract infection. Continue current treatment. Follow up with the primary. 4.Deconditioning, failure to thrive. Intake has been improve. Patient cleared from the renal stand point for discharge planning. DEBORAH/TATUM Voice ID: [id number] Report ID: [id number]
== END 2019-06-27 16:00 | DRG 683 ==
LOC: ER 10:56 → ERHOLD 14:11 → 4TH 17:54
PROVIDERS: ADMIT Family Medicine; ATTEND Family Medicine
DX: N17.0 Acute kidney failure with tubular necrosis (principal); I13.0 Hypertensive heart and chronic kidney disease with heart failure and stage 1 through stage 4 chronic kidney disease, or unspecified chronic kidney disease; N39.0 Urinary tract infection, site not specified; E87.0 Hyperosmolality and hypernatremia; I69.354 Hemiplegia and hemiparesis following cerebral infarction affecting left non-dominant side; N18.3 Chronic kidney disease, stage 3 (moderate); I50.9 Heart failure, unspecified; R62.7 Adult failure to thrive; Z68.33 Body mass index [BMI] 33.0-33.9, adult; R01.1 Cardiac murmur, unspecified; I89.0 Lymphedema, not elsewhere classified; E86.0 Dehydration; I48.2 Chronic atrial fibrillation; K21.9 Gastro-esophageal reflux disease without esophagitis; E11.22 Type 2 diabetes mellitus with diabetic chronic kidney disease; D64.9 Anemia, unspecified
CPT/HCPCS: 36415; 51702; 72100; 74176; 76770; 80048; 80076; 81003; 81015; 82962; 83880; 84484; 85025; 87086; 87088; 93005; 94760; 97110; 97116; 97161; 97530; 99285; J1940; J7030

== ENCOUNTER 2019-10-15 06:55 | Emergency (ER) | payer OTHER ==
--- NOTE | 2019-10-15 07:39 | RAD REPORT ---
EXAM DESCRIPTION: CT - Head Brain Wo Cont - 10/15/2019 7:26 am CLINICAL HISTORY: fall, head injury COMPARISON: HEAD BRAIN W O CONTRAST dated 08/04/2013; HEAD BRAIN W O CONTRAST dated 01/13/2013 TECHNIQUE: All CT scans are performed using dose optimization technique as appropriate and may inclu de automated exposure control or mA/KV adjustment according to patient size. FINDINGS: No intracranial hemorrhage, hydrocephalus or extra-axial fluid collection.Gliosis is seen in the right frontal lobe compatible with old infarction.No areas of brain edema or evidence of midli ne shift. The paranasal sinuses and mastoids are clear. The calvarium is intact. Small right posterior scalp he matoma. IMPRESSION: No acute intracranial abnormality.
[2019-10-15 08:04] LABS: Absolute Lymphocytes (CBC) 1.9 K/uL (0.7-4.9); Basophils % 0.6 % (0-1.3); Lymphocytes % 21.9 % (15.3-44.8); MPV 12.3 fL (7.6-11.3); RBC Red Blood Cell Count 3.29 M/uL (3.86-4.86)
[2019-10-15 08:07] LABS: Protime INR 1.21
[2019-10-15] MEDS ORDERED: KETOROLAC 30 MG/ML INJ ONE (10:18)
--- NOTE | 2019-10-15 10:35 | RAD REPORT ---
EXAM DESCRIPTION: RAD - Pelvis - 10/15/2019 8:26 am CLINICAL HISTORY: pain;Blunt trauma COMPARISON: Hip Right 2 View dated 10/15/2019 FINDINGS: Soft tissue artifact mildly limits bone detail. No fracture or dislocation is visualized.
--- NOTE | 2019-10-15 10:35 | RAD REPORT ---
EXAM DESCRIPTION: RAD - Hip Right 2 View - 10/15/2019 8:26 am CLINICAL HISTORY: PAIN COMPARISON: No comparisons FINDINGS: No fracture, dislocation or AVN. Vascular calcification is evident.
--- NOTE | 2019-10-15 10:52 | ER ---
Nurse's Notes [facility] Name: Marcella Feldman Age: 84 yrs Sex: Female : 1935 Arrival Date: 10/15/2019 Time: 07:04 Bed 20 Private MD: Diagnosis: Contusion of right hip;Superficial injury of head Presentation: 10/15 07:00 Care prior to arrival: None. Mechanism of Injury: Fall from standing position. rb1 07:00 Acuity: DINESH 3 ra1 07:00 Presenting complaint: EMS states: Pt. is 84 yr. old was walking to the bathroom when rb1 her walker went out away from her and she fell. Has a knot on the right back of head, and an abrasion noted to the right forearm. Denies LOC and does not take blood thinners. Pt. fingertips are blue, but this is normal for the pt. C/o right hip pain when standing, but denies pain at this time. Does have a history of A-Fib, Allergy to Morphine, Stadol, Cipro, and Lyrica. BS 153. 07:00 Method Of Arrival: EMS: [place] [id number] 07:00 Transition of care: patient was not received from another setting of care. Onset of rb1 symptoms was October 15, 2019. Risk Assessment: Do you want to hurt yourself or someone else? Patient reports no desire to harm self or others. Initial Sepsis Screen: Does the patient meet any 2 criteria? No. Patient's initial sepsis screen is negative. Does the patient have a suspected source of infection? No. Patient's initial sepsis screen is negative. 07:15 Trauma event details: Injury occurred in the [facility], Injury occurred: at [facility] home. Injury occurred: October 15, 2019. Trauma Activation: Alert Physician: ED Physician; Name: Madison; Notified At: 07:04; Arrived At: 07:04 Physician: General Surgeon; Name: ; Notified At: 07:04; Arrived At: Physician: Radiology; Name: Renee Barber Jamie; Notified At: 07:04; Arrived At: 07:08 Physician: Respiratory; Name: ; Notified At: 07:04; Arrived At: Physician: Rodrigo; Name: ; Notified At: 07:04; Arrived At: Historical: - Allergies: 07:00 butorphanol tartrate; ra1 07:00 Ciprofloxacin; ra1 07:00 Lyrica; ra1 07:00 Stadol; ra1 - Home Meds: 07:00 Eleanor 180 mg Oral Tb24 1 tab once daily [Active]; allopurinol 300 mg Oral Tb24 0.5 rb1 tab once daily [Active]; Coreg 12.5 mg Oral Tb24 1 tab 2 times per day [Active]; Ecotrin 325 mg Oral chew once daily [Active]; Fish Oil 1,000 mg Oral cap daily [Active]; furosemide 40 mg Oral Tb24 once daily [Active]; gabapentin Oral [Active]; hydrocodone-acetaminophen 10-325 mg Oral Tb24 1 tab daily [Active]; Iron CR 325 mg Oral 3 tab daily [Active]; Januvia 50 mg Oral Tb24 once daily [Active]; Levemir 10 subcutaneous 10 units [Active]; nateglinide Oral before each meal [Active]; Basilia-Maisha 0.8 mg Oral Tb24 daily [Active]; tramadol 50 mg Oral Tb24 1 tab every 4-6 hours [Active]; Vitamin B 100 mg daily [Active]; - PMHx: 07:00 ADD/ADHD; Arthritis; Atrial Fib; Diabetes - IDDM; CHF; Gout; Hypertension; Irregular ra1 heart rate; lymphedema; Pneumonia; skin cancer; - Immunization history:: Adult Immunizations up to date. - Social history:: Smoking status: Patient/guardian denies using tobacco. - Immunization history: Last tetanus immunization: unknown. - Family history:: not pertinent. - Ebola Screening: : Patient negative for fever greater than or equal to 101.5 degrees Fahrenheit, and additional compatible Ebola Virus Disease symptoms. - Hospitalizations: : No recent hospitalization is reported. Screenin:00 Abuse screen: Denies threats or abuse. Tuberculosis screening: No symptoms or risk rb1 factors identified. 07:00 Nutritional screening: No deficits noted. Fall Risk Fall in past 12 months (25 points). rb1 Secondary diagnosis (15 points) impaired mobility, No IV (0 pts). Ambulatory Aid- Crutches/Cane/Walker (15 pts). Gait- Impaired (20 pts.). Mental Status- Oriented to own ability (0 pts). Total Herrera Fall Scale indicates High Risk Score (45 or more points). Fall prevention measures have been instituted. Side Rails Up X 2 Placed Close to Nursing Station 1:1 Attendant Assigned Frequent Obs/Assessments Occuring As available patient and family educated on Fall Prevention Program and Strategies. Primary Survey: 07:00 NO uncontrolled hemorrhage observed. A: The patient is alert. Airway: patent. rb1 Breathing/Chest: Respiratory pattern: regular, Respiratory effort: spontaneous, unlabored. Circulation: Skin color: Fingertips are blue but that is normal per pt. report, Skin temperature: warm, dry. Disability Alert. Exposure/Environment: There is no evidence of uncontrolled external bleeding. Obvious injury(ies) are noted at this time: Knot on the back of the right side of head, abrasion on right forearm. 07:15 Reassessment Airway Airway Patent Breathing/Chest Respiratory pattern Regular rb1 Respiratory effort Spontaneous Unlabored Chest inspection Symmetrical Circulation Color [place] Temperature Warm Dry Disability Alert. Secondary Survey: 07:00 HEENT: Head Other Knot on back right side of head Face No injury/deformity. rb1 Gastrointestinal: No deficits noted. : No signs and/or symptoms were reported regarding the genitourinary system. Musculoskeletal: Reports pain in right hip. Assessment: 07:00 General: Appears in no apparent distress. comfortable, Behavior is calm, cooperative. rb1 Pain: Denies pain. Neuro: Level of Consciousness is awake, alert, obeys commands, Oriented to person, place, time, situation. Cardiovascular: Capillary refill Fingertips are always blue which is normal per pt. report.. Respiratory: Airway is patent Respiratory effort is even, unlabored, Respiratory pattern is regular, symmetrical. GI: No signs and/or symptoms were reported involving the gastrointestinal system. : No signs and/or symptoms were reported regarding the genitourinary system. Derm: Bruising that is dark purple, on right forearm. Musculoskeletal: Reports pain in right hip while standing. 08:00 Reassessment: Pt. is off the unit. rb1 08:45 Reassessment: Patient appears in no apparent distress at this time. Patient and/or rb1 family updated on plan of care and expected duration. Pain level reassessed. Patient is alert, oriented x 3, equal unlabored respirations, skin warm/dry/pink. 10:10 Reassessment: Patient appears in no apparent distress at this time. Patient and/or rb1 family updated on plan of care and expected duration. Pain level reassessed. Patient is alert, oriented x 3, equal unlabored respirations, skin warm/dry/pink. 11:00 Reassessment: Patient appears in no apparent distress at this time. No changes from rb1 previously documented assessment. Daughter at the bedside. Vital Signs: 07:00 BP 164 / 92; Pulse 63; Resp 19; Pulse Ox 96% on R/A; Weight 90.72 kg (R); Height 5 ft. rb1 7 in. (170.18 cm) (R); Pain 0/10; 08:00 rb1 08:30 BP 160 / 90; Pulse 84; Resp 18; Temp 97.6; Pulse Ox 96% on R/A; kj1 09:30 BP 157 / 85; Pulse 80; Resp 19; Pulse Ox 97% ; Pain 3/10; rb1 10:30 BP 159 / 97; Pulse 90; Resp 18; Pulse Ox 100% on R/A; rb1 11:00 BP 172 / 99; Pulse 91; Resp 19; Pulse Ox 97% on R/A; Pain 2/10; rb1 07:00 Body Mass Index 31.32 (90.72 kg, 170.18 cm) rb1 08:00 Pt. is off unit rb1 [place] Coma Score: 07:00 Eye Response: spontaneous(4). Verbal Response: oriented(5). Motor Response: obeys rb1 commands(6). Total: 15. 08:30 Eye Response: spontaneous(4). Verbal Response: oriented(5). Motor Response: obeys rb1 commands(6). Total: 15. 09:09 Eye Response: spontaneous(4). Verbal Response: oriented(5). Motor Response: obeys rb1 commands(6). Total: 15. Trauma Score (Adult): 07:00 Eye Response: spontaneous(1); Verbal Response: oriented(1); Motor Response: obeys rb1 commands(2); Systolic BP: > 89 mm Hg(4); Respiratory Rate: 10 to 29 per min(4); [place] Score: 15; Trauma Score: 12 08:30 Eye Response: spontaneous(1); Verbal Response: oriented(1); Motor Response: obeys rb1 commands(2); Systolic BP: > 89 mm Hg(4); Respiratory Rate: 10 to 29 per min(4); Ronald Score: 15; Trauma Score: 12 09:09 Eye Response: spontaneous(1); Verbal Response: oriented(1); Motor Response: obeys rb1 commands(2); Systolic BP: > 89 mm Hg(4); Respiratory Rate: 10 to 29 per min(4); [place] Score: 15; Trauma Score: 12 09:30 Eye Response: spontaneous(1); Verbal Response: oriented(1); Motor Response: obeys rb1 commands(2); Systolic BP: > 89 mm Hg(4); Respiratory Rate: 10 to 29 per min(4); Ronald Score: 15; Trauma Score: 12 ED Course: 07:00 Patient maintains SpO2 saturation greater than 95% on room air. rb1 07:00 Thermoregulation: warm blanket given to patient. rb1 07:00 Patient has correct armband on for positive identification. Bed in low position. Call rb1 light in reach. Side rails up X2. Patient maintains SpO2 saturation greater than 95% on room air. 07:00 Arm band placed on right wrist. rb1 07:04 Patient arrived in ED. ra1 07:07 Kaiden Wallace MD is Attending Physician. rn 07:14 Triage completed. ra1 07:24 Darrius French, RN is Primary Nurse. ra1 07:27 CT Head Brain wo Cont In Process Unspecified. EDMS 07:48 Inserted saline lock: 22 gauge in right antecubital area, using aseptic technique. kj1 07:50 Primary Nurse role handed off by Darrius French, SUZAN rb1 07:50 Alyson Wilson, SUZAN is Primary Nurse. rb1 07:53 Initial lab(s) drawn, by fl, sent to lab. kj1 08:27 XRAY Hip RIGHT 2 view In Process Unspecified. EDMS 08:27 XRAY Pelvis In Process Unspecified. EDMS 11:20 No provider procedures requiring assistance completed. IV discontinued, intact, rb1 bleeding controlled, No redness/swelling at site. Pressure dressing applied. Administered Medications: 10:19 Drug: TORadol - Ketorolac 15 mg Route: IVP; Site: right antecubital; rb1 10:35 Follow up: Response: No adverse reaction; Pain is decreased rb1 Outcome: 10:51 Discharge ordered by . rn 11:20 Discharged to home via wheelchair, with family. rb1 11:20 Condition: stable 11:20 Discharge instructions given to patient, Instructed on discharge instructions, follow up and referral plans. Demonstrated understanding of instructions, follow-up care, Prescriptions given X none 11:20 Patient's length of stay in the Emergency Department was greater than 2 hours. Test rb1 resultsPatient's length of stay extended due to 11:20 Patient left the ED. rb1 Signatures: Dispatcher [employer] EDMS Kaiden Wallace MD MD rn Barber, Rebecca, RN RN rb1 Darrius French RN RN ra Celestina Noriega kj1 Corrections: (The following items were deleted from the chart) : 07: Presenting complaint: EMS states: Pt. is 84 yr. old was walking to the bathroom ra1 when her walker went out away from her and she fell. Has a knot on the right back of head, and an abrasion noted to the right forearm. Denies LOC and does not take blood thinners. Pt. fingertips are blue, but this is normal for the pt. C/o right hip pain when standing, but denies pain at this time. Does have a history of A-Fib, Allergy to Morphine, Stadol, Cipro, and Lyrica. BS 153. [facility] 07:00 Care prior to arrival: None. [place] [id number] 07: Mechanism of Injury: Fall from standing position. [place] [id number] 07:00 Acuity: DINESH 3 [place] [id number] 07: Method Of Arrival: EMS: [facility] [place] [id number] 07: Presenting complaint: EMS states: Pt. is 84 yr. old was walking to the bathroom ra1 when her walker went out away from her and she fell. Has a knot on the right back of head, and an abrasion noted to the right forearm. Denies LOC and does not take blood thinners. Pt. fingertips are blue, but this is normal for the pt. C/o right hip pain when standing, but denies pain at this time. Does have a history of A-Fib, Allergy to Morphine, Stadol, Cipro, and Lyrica. BS 153. [facility] 07: Care prior to arrival: None. [place] [id number] 07:00 Mechanism of Injury: Fall from standing position. [place] [id number] 07:00 Acuity: DINESH 3 [place] [id number] 07:00 Method Of Arrival: EMS: [facility] [place] [id number] 07:00 Presenting complaint: EMS states: Pt. is 84 yr. old was walking to the bathroom ra1 when her walker went out away from her and she fell. Has a knot on the right back of head, and an abrasion noted to the right forearm. Denies LOC and does not take blood thinners. Pt. fingertips are blue, but this is normal for the pt. C/o right hip pain when standing, but denies pain at this time. Does have a history of A-Fib, Allergy to Morphine, Stadol, Cipro, and Lyrica. BS 153. [facility] 07:00 Care prior to arrival: None. [place] [address] 07:51 07:00 Mechanism of Injury: Fall from standing position. [place] [address] 07:00 Method Of Arrival: EMS: [facility] [place] [address] 07:51 07:01 Presenting complaint: EMS states: Pt. is 84 yr. old was walking to the bathroom rb1 when her walker went out away from her and she fell. Has a knot on the right back of head, and an abrasion noted to the right forearm. Denies LOC and does not take blood thinners. Pt. fingertips are blue, but this is normal for the pt. C/o right hip pain when standing, but denies pain at this time. Does have a history of A-Fib, Allergy to Morphine, Stadol, Cipro, and Lyrica. BS 153. [facility] 07: General: Appears in no apparent distress. comfortable, Behavior is calm, rb1 cooperative, [facility] 07:00 Pain: Denies pain. [place] [address] 07:00 Neuro: Level of Consciousness is awake, alert, obeys commands, Oriented to [facility] person, place, time, situation, [facility] 07: Cardiovascular: Capillary refill Fingertips are always blue which is normal per rb1 pt. report.. [facility] 07:00 Respiratory: Airway is patent Respiratory effort is even, unlabored, Respiratory rb1 pattern is regular, symmetrical, [facility] 07:00 GI: No signs and/or symptoms were reported involving the gastrointestinal system. rb1 [facility] 07:00 : No signs and/or symptoms were reported regarding the genitourinary system. [facility] 07:00 Derm: Bruising that is dark purple, on right forearm [place] [id number] 07:00 Musculoskeletal: Reports pain in right hip while standing [place] [address] 07:13 Family history: not pertinent, rn [facility] 07:13 Hospitalizations: No recent hospitalization is reported. rn [facility] 07:00 NO uncontrolled hemorrhage observed [place] [address] 07:00 A: The patient is alert. Airway: patent, [place] [address] 07:00 Breathing/Chest: Respiratory pattern: regular, Respiratory effort: spontaneous, rb1 unlabored, [facility] 07:00 Circulation: Skin color: Fingertips are blue but that is normal per pt. report, rb1 Skin temperature: warm, dry, [facility] 07:00 Disability Alert [place] [address] 07:00 Exposure/Environment: There is no evidence of uncontrolled external bleeding. rb1 Obvious injury(ies) are noted at this time: Knot on the back of the right side of head, abrasion on right forearm [facility] 07:00 HEENT: Head Other Knot on back right side of head Face No injury/deformity [place] [address] 07:00 Gastrointestinal: No deficits noted. [place] [address] 07:00 : No signs and/or symptoms were reported regarding the genitourinary system. [facility] 07:00 Musculoskeletal: Reports pain in right hip [place] [address] 07:00 BP 164 / 92; Pulse 63bpm; Resp 19bpm; Pulse Ox 96% RA; 90.72 kg Reported; Height rb1 5 ft. 7 in. Reported; BMI: 31.3; Pain 0/10; [facility] 07:00 Ronald Score=15, Trauma Score=12, [place] [address] 07:00 GCS: 15, [place] [address] 08 07:00 Abuse screen: Denies threats or abuse. [place] [address] 08 07:00 Tuberculosis screening: No symptoms or risk factors identified. [place] [address] 08: 08:03 Reassessment Breathing/Chest [place] [address] 15:42 11:42 Patient left the ED. rb1 rb1
--- NOTE | 2019-10-15 10:52 | EDPHYS ---
Physician Documentation [facility] Name: Marcella Feldman Age: 84 yrs Sex: Female : 1935 Arrival Date: 10/15/2019 Time: 07:04 Bed 20 Private MD: ED Physician Kaiden Wallace HPI: 10/15 07:13 This 84 yrs old Female presents to ER via Unassigned with complaints of Fall rn Injury. 07:13 Details of fall: The patient fell from an upright position. Onset: The symptoms/episode rn began/occurred just prior to arrival. Associated injuries: The patient sustained injury to the head, right hip. Severity of symptoms: At their worst the symptoms were mild, in the emergency department the symptoms are unchanged. The patient has not experienced similar symptoms in the past. Reports fall while walking to bathroom, tripped over walker, fell forward, hit head and right hip, hurts to move right hip. No LOC. NO blood thinners. No other injuries. . Historical: - Allergies: 07:00 butorphanol tartrate; ra1 07:00 Ciprofloxacin; ra1 07:00 Lyrica; ra1 07:00 Stadol; ra1 - Home Meds: 07:00 Eleanor 180 mg Oral Tb24 1 tab once daily [Active]; allopurinol 300 mg Oral Tb24 0.5 rb1 tab once daily [Active]; Coreg 12.5 mg Oral Tb24 1 tab 2 times per day [Active]; Ecotrin 325 mg Oral chew once daily [Active]; Fish Oil 1,000 mg Oral cap daily [Active]; furosemide 40 mg Oral Tb24 once daily [Active]; gabapentin Oral [Active]; hydrocodone-acetaminophen 10-325 mg Oral Tb24 1 tab daily [Active]; Iron CR 325 mg Oral 3 tab daily [Active]; Januvia 50 mg Oral Tb24 once daily [Active]; Levemir 10 subcutaneous 10 units [Active]; nateglinide Oral before each meal [Active]; Basilia-Maisha 0.8 mg Oral Tb24 daily [Active]; tramadol 50 mg Oral Tb24 1 tab every 4-6 hours [Active]; Vitamin B 100 mg daily [Active]; - PMHx: 07:00 ADD/ADHD; Arthritis; Atrial Fib; Diabetes - IDDM; CHF; Gout; Hypertension; Irregular ra1 heart rate; lymphedema; Pneumonia; skin cancer; - Immunization history:: Adult Immunizations up to date. - Social history:: Smoking status: Patient/guardian denies using tobacco. - Immunization history: Last tetanus immunization: unknown. - Family history:: not pertinent. - Ebola Screening: : Patient negative for fever greater than or equal to 101.5 degrees Fahrenheit, and additional compatible Ebola Virus Disease symptoms. - Hospitalizations: : No recent hospitalization is reported. ROS: 07:13 Constitutional: Negative for fever, chills, and weight loss, Eyes: Negative for injury, rn pain, redness, and discharge, Neck: Negative for injury, pain, and swelling, Cardiovascular: Negative for chest pain, palpitations, and edema, Respiratory: Negative for shortness of breath, cough, wheezing, and pleuritic chest pain, Abdomen/GI: Negative for abdominal pain, nausea, vomiting, diarrhea, and constipation, Back: Negative for injury and pain, MS/Extremity: + right hip injury and pain Skin: Negative for rash, and discoloration, Neuro: Negative for headache, weakness, numbness, tingling, and seizure. Exam: 07:13 Constitutional: This is a well developed, well nourished patient who is awake, alert, rn and in no acute distress. Head/Face: Normocephalic, small frontal contusion, no laceration ENT: No oral trauma Neck: Trachea midline, no thyromegaly or masses palpated, and no cervical lymphadenopathy. Supple, full range of motion without nuchal rigidity, or vertebral point tenderness. No Meningismus. Cardiovascular: Regular rate and rhythm. No pulse deficits. Respiratory: No increased work of breathing, no retractions or nasal flaring. Abdomen/GI: soft, non-tender Back: No spinal tenderness. No costovertebral tenderness. Full range of motion. MS/ Extremity: Pulses equal, no cyanosis. Neurovascular intact. Mild pain with ROM right hip, FROM left hip. Neuro: Awake and alert, GCS 15, oriented to person, place, time, and situation. Cranial nerves II-XII grossly intact. Motor strength 5/5 in all extremities. Sensory grossly intact. Vital Signs: 07:00 BP 164 / 92; Pulse 63; Resp 19; Pulse Ox 96% on R/A; Weight 90.72 kg (R); Height 5 ft. rb1 7 in. (170.18 cm) (R); Pain 0/10; 08:00 rb1 08:30 BP 160 / 90; Pulse 84; Resp 18; Temp 97.6; Pulse Ox 96% on R/A; kj1 09:30 BP 157 / 85; Pulse 80; Resp 19; Pulse Ox 97% ; Pain 3/10; rb1 10:30 BP 159 / 97; Pulse 90; Resp 18; Pulse Ox 100% on R/A; rb1 11:00 BP 172 / 99; Pulse 91; Resp 19; Pulse Ox 97% on R/A; Pain 2/10; rb1 07:00 Body Mass Index 31.32 (90.72 kg, 170.18 cm) rb1 08:00 Pt. is off unit rb1 Ronald Coma Score: 07:00 Eye Response: spontaneous(4). Verbal Response: oriented(5). Motor Response: obeys rb1 commands(6). Total: 15. 08:30 Eye Response: spontaneous(4). Verbal Response: oriented(5). Motor Response: obeys rb1 commands(6). Total: 15. 09:09 Eye Response: spontaneous(4). Verbal Response: oriented(5). Motor Response: obeys rb1 commands(6). Total: 15. Trauma Score (Adult): 07:00 Eye Response: spontaneous(1); Verbal Response: oriented(1); Motor Response: obeys rb1 commands(2); Systolic BP: > 89 mm Hg(4); Respiratory Rate: 10 to 29 per min(4); [place] Score: 15; Trauma Score: 12 08:30 Eye Response: spontaneous(1); Verbal Response: oriented(1); Motor Response: obeys rb1 commands(2); Systolic BP: > 89 mm Hg(4); Respiratory Rate: 10 to 29 per min(4); [place] Score: 15; Trauma Score: 12 09:09 Eye Response: spontaneous(1); Verbal Response: oriented(1); Motor Response: obeys rb1 commands(2); Systolic BP: > 89 mm Hg(4); Respiratory Rate: 10 to 29 per min(4); Ronald Score: 15; Trauma Score: 12 09:30 Eye Response: spontaneous(1); Verbal Response: oriented(1); Motor Response: obeys rb1 commands(2); Systolic BP: > 89 mm Hg(4); Respiratory Rate: 10 to 29 per min(4); [place] Score: 15; Trauma Score: 12 MDM: 07:07 Patient medically screened. rn 10:50 Differential diagnosis: closed head injury, contusion, fracture, sprain, strain. Data rn reviewed: vital signs, nurses notes, lab test result(s), radiologic studies, CT scan, plain films, and as a result, I will discharge patient. Counseling: I had a detailed discussion with the patient and/or guardian regarding: the historical points, exam findings, and any diagnostic results supporting the discharge/admit diagnosis, lab results, radiology results, the need for outpatient follow up, to return to the emergency department if symptoms worsen or persist or if there are any questions or concerns that arise at home. Response to treatment: the patient's symptoms have markedly improved after treatment, and as a result, I will discharge patient. Special discussion: Based on the patient's history, exam and DX evaluation, there is no indication for emergent intervention or inpatient TX. It is understood by the patient/guardian that if the SXs persist or worsen they need to return immediately for re-evaluation. I discussed with the patient/guardian in detail that at this point there is no indication for admission to the hospital. It is understood, however, that if the symptoms persist or worsen the patient needs to return immediately for re-evaluation. ED course: Pt with no acute findings on ct head, neg pelvis, neg hip, improved with toradol, will dc home with OTC pain meds, ice/heat, and told to f/u with pcp. If symptoms do not improve by 2 weeks, told to get CT or JUDY pelvis/hip.. 10/15 07:13 Order name: CBC with Diff rn 10/15 07:13 Order name: Basic Metabolic Panel rn 10/15 07:13 Order name: Protime (+inr); Complete Time: 08:13 rn 10/15 07:13 Order name: Ptt, Activated; Complete Time: 08:13 rn 10/15 07:14 Order name: CBC with Automated Diff; Complete Time: 08:13 EDMS 10/15 07:14 Order name: Basic Metabolic Panel; Complete Time: 08:45 EDMS 10/15 07:13 Order name: IV Start; Complete Time: 10:19 rn 10/15 07:13 Order name: XRAY Hip RIGHT 2 view; Complete Time: 10:46 rn 10/15 07:13 Order name: XRAY Pelvis; Complete Time: 10:46 rn 10/15 07:13 Order name: CT Head Brain wo Cont; Complete Time: 08:13 rn 10/15 07:13 Order name: NPO; Complete Time: 09:05 rn Administered Medications: 10:19 Drug: TORadol - Ketorolac 15 mg Route: IVP; Site: right antecubital; rb1 10:35 Follow up: Response: No adverse reaction; Pain is decreased rb1 Disposition: 10/15/19 10:51 Discharged to Home. Impression: Contusion of right hip, Superficial injury of head. - Condition is Stable. - Discharge Instructions: Contusion, Head Injury, Adult. - Medication Reconciliation Form, Thank You Letter, Antibiotic Education, Prescription Opioid Use form. - Follow up: Private Physician; When: As needed; Reason: Recheck today's complaints, Re-evaluation by your physician. - Problem is new. - Symptoms have improved. Signatures: Dispatcher [employer] EDMS Kaiden Wallace MD MD rn Barber, Rebecca RN RN rb1 Darrius French RN RN ra1 Corrections: (The following items were deleted from the chart) 07:56 07:13 Family history: not pertinent, rn rb1 07:56 07:13 Hospitalizations: No recent hospitalization is reported. rn rb1 11:42 10:51 10/15/2019 10:51 Discharged to Home. Impression: Contusion of right hip; rb1 Superficial injury of head. Condition is Stable. Forms are Medication Reconciliation Form, Thank You Letter, Antibiotic Education, Prescription Opioid Use. Follow up: Private Physician; When: As needed; Reason: Recheck today's complaints, Re-evaluation by your physician. Problem is new. Symptoms have improved. rn
[2019-10-15 11:48] VITALS: TEMP 97.6
[2019-10-15 11:53] VITALS: BP 172/99; O2SAT 97
== END 2019-10-15 11:42 | disposition home or self-care (01) ==
LOC: ER 06:55
DX: S70.01XA Contusion of right hip, initial encounter (principal); S00.90XA Unspecified superficial injury of unspecified part of head, initial encounter; W01.0XXA Fall on same level from slipping, tripping and stumbling without subsequent striking against object, initial encounter; Y93.01 Activity, walking, marching and hiking; Y92.9 Unspecified place or not applicable; Z88.1 Allergy status to other antibiotic agents; Z88.6 Allergy status to analgesic agent; Z88.8 Allergy status to other drugs, medicaments and biological substances; Z85.828 Personal history of other malignant neoplasm of skin; I10 Essential (primary) hypertension; E11.9 Type 2 diabetes mellitus without complications; I48.91 Unspecified atrial fibrillation; I50.9 Heart failure, unspecified
CPT/HCPCS: 36415; 70450; 72170; 80048; 85025; 85610; 85730; 96374; 99284

== ENCOUNTER 2020-02-10 11:23 | Inpatient (IN) | payer OTHER ==
--- OUTSIDE RECORDS SUMMARY | 2020-02-10 11:25 | XMS REPORT ---
:1935 Author Organization [employer] Care Team Providers Name Role Phone Sadu Thorne Provider Role Unavailable Allergies, Adverse Reactions, Alerts Substance Reaction Event Type Stadol Info Not Available Drug Allergy Lyrica Info Not Available Drug Allergy Problems Problem Type Condition Code Onset Dates Condition Statu s Assessment Primary osteoarthritis of right M17.11 Active knee Problem Primary osteoarthritis of right M17.11 Active knee Assessment Acute pain of right knee M25.561 Act jorgito Medications Medication Code System Code Instructions Start Date End Date Status Dosage Allopurinol NDC 0 Active not defined Results No Known Results Summary Purpose [employer] Submission
--- OUTSIDE RECORDS SUMMARY | 2020-02-10 11:25 | XMS REPORT ---
:1935 Author Organization [facility] t Address [address] [place] [address] Care Team Providers Name Role Phone Unavailable Unavailable Unavailable Problems Condition Condition Condition Status Onset Resolution Last Treatin g Comments Name Details Category Date Date Treatment Clinician Date Primary Primary Problem Active osteoarthri osteoarthri tis of tis of right knee right knee Acute pain Acute pain Diagnosis Active of right of right knee knee Allergies, Adverse Reactions, Alerts Allergy Allergy Status Severity Reaction(s) Onset Inactive Treating C omments Name Type Date Date Clinician Stadol Adverse Active Info Not Reaction Available Lyrica Adverse Active Info Not Reaction Available Medications Ordered Filled Start Stop Current Ordering Indication Dosage Frequency Signature Comments Components Medication Medication Date Date Medication? Clinician (SIG) Name Name Allopurinol Allopurinol Yes Saud not Thorne defined Encounters Start End Encounter Admission Attending Care Care Encounter Date/Time Date/Time Type Type Clinicians Facility Department ID 2018-04-29 2018-04-29 Outpatient Paul Miller 1 [id number] 09:00:00 09:00:00 [facility]
[2020-02-10] MEDS ORDERED: NA CHLORIDE 0.9% 1,000 ML ONE (12:19)
[2020-02-10] MEDS ORDERED: CEFEPIME/SWI 2gm 2 GM/20 ML SYR IVP ONE (12:30)
[2020-02-10 12:55] LABS: Absolute Lymphocytes (CBC) 1.4 K/uL (0.7-4.9); Basophils % 0.7 % (0-1.3); Hematocrit 28.5 % (36.0-45.0); Lymphocytes % 20.3 % (15.3-44.8); MPV 13.4 fL (7.6-11.3); Protime INR 1.3; RBC Red Blood Cell Count 2.69 M/uL (3.86-4.86)
--- NOTE | 2020-02-10 13:03 | RAD REPORT ---
EXAM DESCRIPTION: RAD - Chest Single View - 02/10/2020 12:29 pm CLINICAL HISTORY: COUGH COMPARISON: Portable June 2019 TECHNIQUE: AP portable chest image was obtained 02/10/2020 12:29 pm . FINDINGS: Chronic interstitial lung disease is present matching comparison. Interstitial edema and i nfiltrate can be masked in this setting. Cardiac silhouette is enlarged but not changed. Vasculature is prominent but less than seen previously. No pneumothorax or large pleural effusion. No acute bony abnormality seen. No acute aortic findings suspected. IMPRESSION: Extensive chronic interstitial lung pattern without peripheral mass or consolidation. Extent of chronic findings detailed above could mask early failure or volume overload as well as inte rstitial edema and infiltrate.
[2020-02-10 13:14] LABS: Anisocytosis 1+; Blood Morphology Comment NOTED (NOT SEEN); Macrocytosis SLIGHT; Platelet Estimate DECR
[2020-02-10 13:15] LABS: ALT/SGPT 15 U/L (12-78); AST/SGOT 21 U/L (15-37); Albumin 2.9 g/dL (3.4-5.0); Alkaline Phosphatase 276 U/L (45-117); BUN Blood Urea Nitrogen 101 mg/dL (7-18); Bicarbonate 20 mmol/L (21-32); Bilirubin Direct 0.3 mg/dL (0-0.2); Bilirubin Total 0.5 mg/dL (0.2-1.0); Glucose Level 97 mg/dL (74-106); Lipase 331 U/L (73-393); Magnesium 2.5 mg/dL (1.8-2.4); NT PRO-BNP 5734 pg/mL (<450); Potassium 4.5 mmol/L (3.5-5.1); Protein, Total 7.3 g/dL (6.4-8.2); Sodium Level 138 mmol/L (136-145); Troponin (Emerg Dept Use Only) < 0.02 ng/mL (0.0-0.045)
[2020-02-10 13:15] LABS: Urine Blood 3+ (NEG); Urine Glucose NEGATIVE (NEG); Urine Protein 3+ (NEG); Urine Specific Gravity >1.030 (1.005-1.030); Urine pH 5.5 (5.0-7.0)
--- NOTE | 2020-02-10 13:36 | ER ---
Nurse's Notes [facility] Name: Marcella Feldman Age: 85 yrs Sex: Female : 1935 Arrival Date: 02/10/2020 Time: 11:34 Bed 3 Private MD: Diagnosis: Altered mental status, unspecified;Obesity, unspecified;Acute kidney failure;Anemia, unspecified;Urinary tract infection, site not specified;Atrial fibrillation and flutter;Hypothermia Presentation: 02/09 11:34 Chief complaint: EMS states: called out for AMS, family reports pt was diagnosed with a em UTI and was taking Bactrim and Macrobid, but discontinued the Macrobid 2 days ago, pt A\T\O 3. Coronavirus screen: Proceed with normal triage. Ebola Screen: Patient negative for fever greater than or equal to 101.5 degrees Fahrenheit, and additional compatible Ebola Virus Disease symptoms Patient denies exposure to infectious person. Patient denies travel to an Ebola-affected area in the 21 days before illness onset. No symptoms or risks identified at this time. Initial Sepsis Screen: Does the patient meet any 2 criteria? No. Patient's initial sepsis screen is negative. Does the patient have a suspected source of infection? Yes: Dysuria/Frequency/Urgency/UTI. Risk Assessment: Do you want to hurt yourself or someone else? Patient reports no desire to harm self or others. Onset of symptoms was February 10, 2020. 11:34 Method Of Arrival: EMS: [facility] em 11:34 Acuity: DINESH 2 em Historical: - Allergies: 11:41 butorphanol tartrate; em 11:41 Ciprofloxacin; em 11:41 Lyrica; em 11:41 Stadol; em - Home Meds: 11:41 allopurinol 300 mg Oral Tb24 0.5 tab once daily [Active]; Coreg 12.5 mg Oral Tb24 1 tab em 2 times per day [Active]; furosemide 40 mg Oral Tb24 once daily [Active]; Eleanor 180 mg Oral Tb24 1 tab once daily [Active]; pantoprazole 40 mg oral TbEC 1 tab once daily [Active]; gabapentin 100 mg oral cap 1 caps 3 times per day [Active]; Januvia 50 mg Oral Tb24 once daily [Active]; Ecotrin 325 mg Oral chew once daily [Active]; - PMHx: 11:41 ADD/ADHD; Arthritis; Atrial Fib; CHF; Diabetes - IDDM; Gout; Hypertension; Irregular em heart rate; lymphedema; Pneumonia; skin cancer; - Immunization history:: Adult Immunizations up to date. - Social history:: Smoking status: Patient denies any tobacco usage or history of. - Family history:: not pertinent. Screenin:41 Abuse screen: Denies threats or abuse. Nutritional screening: No deficits noted. em Tuberculosis screening: No symptoms or risk factors identified. Fall Risk None identified. Assessment: 11:35 General: Appears in no apparent distress. uncomfortable, obese, Behavior is calm, jl7 cooperative. Pain: Denies pain. Neuro: Level of Consciousness is obeys commands, Drowsy. Oriented to person, place, time, situation. Cardiovascular: Patient's skin is warm and dry. Edema is 3+ to bilateral upper and lower extremities. Respiratory: Airway is patent Respiratory effort is even, unlabored, Respiratory pattern is regular, symmetrical. GI: Abdomen is round distended. : Urine is cloudy. Derm: Skin is dry, Skin is normal, Skin temperature is cool. 12:30 Reassessment: Patient appears in no apparent distress at this time. No changes from jl7 previously documented assessment. Patient and/or family updated on plan of care and expected duration. Pain level reassessed. Patient is alert, oriented x 3, equal unlabored respirations, skin warm/dry/pink. 13:30 Reassessment: Patient appears in no apparent distress at this time. Patient and/or jl7 family updated on plan of care and expected duration. Pain level reassessed. Patient is alert, oriented x 3, equal unlabored respirations, skin warm/dry/pink. Patient denies pain at this time. 14:30 Reassessment: Patient appears in no apparent distress at this time. Patient and/or jl7 family updated on plan of care and expected duration. Pain level reassessed. Patient is alert, oriented x 3, equal unlabored respirations, skin warm/dry/pink. 15:30 Reassessment: Patient appears in no apparent distress at this time. No changes from jl7 previously documented assessment. Patient and/or family updated on plan of care and expected duration. Pain level reassessed. Patient is alert, oriented x 3, equal unlabored respirations, skin warm/dry/pink. 16:30 Reassessment: Patient appears in no apparent distress at this time. Patient and/or jl7 family updated on plan of care and expected duration. Pain level reassessed. Patient is alert, oriented x 3, equal unlabored respirations, skin warm/dry/pink. Vital Signs: 11:34 BP 114 / 66; Pulse 72; Resp 14; Pulse Ox 100% on 3 lpm NC; em 12:03 Temp 93.1(R); em 13:24 BP 94 / 50; Pulse 69; Resp 13; Temp 92.7; Pulse Ox 100% ; jl7 14:30 BP 95 / 52; Pulse 63; Resp 14; Temp 92.1; Pulse Ox 98% on 3 lpm NC; mh5 15:18 BP 87 / 48; Pulse 64; Resp 14; Temp 93.19(C); Pulse Ox 98% on 3 lpm NC; mh5 15:30 BP 91 / 54; Pulse 72; Resp 16; Pulse Ox 99% ; jl7 16:00 BP 94 / 60; Pulse 69; Resp 17; Pulse Ox 100% ; jl7 16:33 BP 101 / 59; Pulse 71; Resp 13 S; Temp 94.2(C); Pulse Ox 99% on 3 lpm NC; jl7 17:30 BP 101 / 52; Pulse 66; Resp 13 S; Temp 95.2(C); Pulse Ox 99% on 3 lpm NC; jl7 17:50 BP 95 / 49; Pulse 73; Resp 14 S; Temp 95.3(C); Pulse Ox 99% on 3 lpm NC; jl7 18:27 BP 98 / 52 RA (man/); Pulse 71; Resp 16 S; Temp 95.8(C); Pulse Ox 98% on 3 lpm NC; jl7 ED Course: 11:34 Patient arrived in ED. em 11:35 Inserted saline lock: 20 gauge in left antecubital area, using aseptic technique. Blood jl7 collected. 11:37 Triage completed. em 11:40 Salvador Teague MD is Attending Physician. bib 11:41 Arm band placed on. em 11:41 Patient has correct armband on for positive identification. Placed in gown. Bed in low em position. Call light in reach. accounting file clerk on. Pulse ox on. NIBP on. 11:41 Maintain EMS IV. Dressing intact. Good blood return noted. Site clean \T\ dry. Gauge \T\ em site: 20 G LAC. 11:45 Hieu Davis RN is Primary Nurse. jl7 12:15 Speci-cath kit inserted, using sterile technique, 16 Fr., specimen obtained. returned jl7 cloudy urine. Patient tolerated poorly. 12:29 XRAY Chest (1 view) In Process Unspecified. EDMS 12:35 Initial lab(s) drawn, by md, sent to lab. First set of blood cultures drawn by me. jl7 12:40 Second set of blood cultures drawn by me. jl7 13:25 CT Stone Protocol: uti, bilateral flank pain In Process Unspecified. EDMS 13:26 CT Head Brain wo Cont In Process Unspecified. EDMS 13:27 Tye Judd MD is Hospitalizing Provider. [facility] 13:53 T\T\S collected, blood band applied to patient. jl7 16:36 No provider procedures requiring assistance completed. Patient admitted, IV remains in jl7 place. intact, No redness/swelling at site. Administered Medications: 12:45 Drug: NS 0.9% 500 ml Route: IV; Rate: bolus; Site: left antecubital; jl7 13:35 Follow up: IV Status: Completed infusion; IV Intake: 500ml jl7 12:45 Drug: Cefepime 2 grams Route: IVPB; Rate: 200 ml/hr; Infused Over: 5 mins; Site: left jl7 antecubital; 12:50 Follow up: Response: No adverse reaction; IV Status: Completed infusion jl7 13:28 Drug: NS 0.9% 1000 ml Route: IV; Rate: 125 ml/hr; Site: left antecubital; jl7 16:32 Follow up: Response: No adverse reaction; IV Status: Infusion continued upon admission jl7 Intake: 13:35 IV: 500ml; Total: 500ml. jl7 Outcome: 13:35 Decision to Hospitalize by Provider. bib 16:47 Admitted to Tele accompanied by tech, via stretcher, room 203, with oxygen, with chart, jl7 Report called to SUZAN Cabrales 16:47 Condition: stable 16:47 Discharge instructions given to patient, Instructed on the need for admit, Demonstrated understanding of instructions. 20:20 Patient left the ED. jb4 Signatures: Dispatcher [employer] Salvador Herman MD MD cha Munoz, Edgar, RN RN em Dandre Franco, SUZAN RN Ruma Tuttle [facility] Hieu Davis RN RN jl7 Corrections: (The following items were deleted from the chart) 12:10 11:34 Acuity: DINESH 3 em em 16:35 16:33 Temp 94.2F Catheter; julia dumont
--- NOTE | 2020-02-10 13:36 | EDPHYS ---
Physician Documentation [facility] Name: Marcella Feldman Age: 85 yrs Sex: Female : 1935 Arrival Date: 02/10/2020 Time: 11:34 Bed 3 Private MD: NITHIN Physician Salvador Teague HPI: 02/09 12:00 This 85 yrs old Female presents to ER via EMS with complaints of uti, ams and bib hypothermia. 12:00 The patient presents with abdominal distention. Onset: The symptoms/episode bib began/occurred 3 day(s) ago. The patient complains of pain in the left low back, left mid back, right mid back and right low back. The pain does not radiate. Onset: The symptoms/episode began/occurred 3 day(s) ago. Modifying factors: The symptoms are alleviated by nothing. the symptoms are aggravated by nothing. weak, treated for a uti, weakness, hypothermia , and ams. The patient presents with confusion, decreased mental status, trouble concentrating. Possible causes: CVA or TIA, sepsis, the patient has a known UTI history. Associated signs and symptoms: Pertinent positives: dizziness, headache, nausea. Historical: - Allergies: 11:41 butorphanol tartrate; em 11:41 Ciprofloxacin; em 11:41 Lyrica; em 11:41 Stadol; em - Home Meds: 11:41 allopurinol 300 mg Oral Tb24 0.5 tab once daily [Active]; Coreg 12.5 mg Oral Tb24 1 tab em 2 times per day [Active]; furosemide 40 mg Oral Tb24 once daily [Active]; Eleanor 180 mg Oral Tb24 1 tab once daily [Active]; pantoprazole 40 mg oral TbEC 1 tab once daily [Active]; gabapentin 100 mg oral cap 1 caps 3 times per day [Active]; Januvia 50 mg Oral Tb24 once daily [Active]; Ecotrin 325 mg Oral chew once daily [Active]; - PMHx: 11:41 ADD/ADHD; Arthritis; Atrial Fib; CHF; Diabetes - IDDM; Gout; Hypertension; Irregular em heart rate; lymphedema; Pneumonia; skin cancer; - Immunization history:: Adult Immunizations up to date. - Social history:: Smoking status: Patient denies any tobacco usage or history of. - Family history:: not pertinent. ROS: 12:00 Constitutional: Negative for fever, chills, and weight loss, Eyes: Negative for injury, bib pain, redness, and discharge, ENT: Negative for injury, pain, and discharge, Neck: Negative for injury, pain, and swelling, Cardiovascular: Negative for chest pain, palpitations, and edema, Respiratory: Negative for shortness of breath, cough, wheezing, and pleuritic chest pain, : Negative for injury, bleeding, discharge, and swelling, MS/Extremity: Negative for injury and deformity, Skin: Negative for injury, rash, and discoloration, Psych: Negative for depression, anxiety, suicide ideation, homicidal ideation, and hallucinations, Allergy/Immunology: Negative for hives, rash, and allergies, Endocrine: Negative for neck swelling, polydipsia, polyuria, polyphagia, and marked weight changes. 12:00 Abdomen/GI: Positive for abdominal pain, abdominal distension, of the right lower quadrant and left lower quadrant. 12:00 : Positive for burning with urination. Exam: 12:00 Constitutional: This is a well developed, well nourished patient who is awake, alert, bib and in no acute distress. Head/Face: Normocephalic, atraumatic. Eyes: Pupils equal round and reactive to light, extra-ocular motions intact. Lids and lashes normal. Conjunctiva and sclera are non-icteric and not injected. Cornea within normal limits. Periorbital areas with no swelling, redness, or edema. ENT: Nares patent. No nasal discharge, no septal abnormalities noted. Tympanic membranes are normal and external auditory canals are clear. Oropharynx with no redness, swelling, or masses, exudates, or evidence of obstruction, uvula midline. Mucous membranes moist. Neck: Trachea midline, no thyromegaly or masses palpated, and no cervical lymphadenopathy. Supple, full range of motion without nuchal rigidity, or vertebral point tenderness. No Meningismus. Chest/axilla: Normal chest wall appearance and motion. Nontender with no deformity. No lesions are appreciated. Cardiovascular: Regular rate and rhythm with a normal S1 and S2. No gallops, murmurs, or rubs. Normal PMI, no JVD. No pulse deficits. Respiratory: Lungs have equal breath sounds bilaterally, clear to auscultation and percussion. No rales, rhonchi or wheezes noted. No increased work of breathing, no retractions or nasal flaring. Female : Normal external genitalia. Skin: Warm, dry with normal turgor. Normal color with no rashes, no lesions, and no evidence of cellulitis. MS/ Extremity: Pulses equal, no cyanosis. Neurovascular intact. Full, normal range of motion. Neuro: Awake and alert, GCS 15, oriented to person, place, time, and situation. Cranial nerves II-XII grossly intact. Motor strength 5/5 in all extremities. Sensory grossly intact. Cerebellar exam normal. Normal gait. Psych: Awake, alert, with orientation to person, place and time. Behavior, mood, and affect are within normal limits. 12:00 Neck: ROM/movement: is normal, no acute changes, Meningeal signs: are not present, Kernig's sign is negative, Brudzinski's sign is negative. 12:00 Abdomen/GI: Inspection: distension, Bowel sounds: normal, Palpation: mild abdominal tenderness, in all quadrants, Liver: no appreciated palpable abnormalities, Hernia: not appreciated. 12:29 ECG was reviewed by the Attending Physician. [facility] 12:29 Back: pain, that is mild, ROM is painful, normal spinal alignment noted, CVA tenderness, that is mild, is noted bilaterally, muscle spasm, is not present. Vital Signs: 11:34 BP 114 / 66; Pulse 72; Resp 14; Pulse Ox 100% on 3 lpm NC; em 12:03 Temp 93.1(R); em 13:24 BP 94 / 50; Pulse 69; Resp 13; Temp 92.7; Pulse Ox 100% ; jl7 14:30 BP 95 / 52; Pulse 63; Resp 14; Temp 92.1; Pulse Ox 98% on 3 lpm NC; 5 15:18 BP 87 / 48; Pulse 64; Resp 14; Temp 93.19(C); Pulse Ox 98% on 3 lpm NC; 5 15:30 BP 91 / 54; Pulse 72; Resp 16; Pulse Ox 99% ; 7 16:00 BP 94 / 60; Pulse 69; Resp 17; Pulse Ox 100% ; 7 16:33 BP 101 / 59; Pulse 71; Resp 13 S; Temp 94.2(C); Pulse Ox 99% on 3 lpm NC; jl7 17:30 BP 101 / 52; Pulse 66; Resp 13 S; Temp 95.2(C); Pulse Ox 99% on 3 lpm NC; jl7 17:50 BP 95 / 49; Pulse 73; Resp 14 S; Temp 95.3(C); Pulse Ox 99% on 3 lpm NC; jl7 18:27 BP 98 / 52 RA (man/); Pulse 71; Resp 16 S; Temp 95.8(C); Pulse Ox 98% on 3 lpm NC; jl7 MDM: 11:40 Patient medically screened. [facility] 12:04 Data reviewed: vital signs, nurses notes, lab test result(s), EKG, radiologic studies, [facility] CT scan, plain films. 12:07 ED course: dr bauer wants septic mcguire, please put on cefepime 2 gm now. [facility] 12:26 Differential Diagnosis altered mental status, sepsis. Differential Diagnosis: CVA, bib electrolyte abnormality, hypoglycemia, intracranial bleed, pneumonia, sepsis, TIA, UTI, volume depletion. Differential diagnosis: pyelonephritis, UTI, cholecystitis, Cholelithiasis, diverticulitis, non-specific abd pain, pancreatitis, Pyelonephritis, Ureterolithiasis, urinary tract infection. 02/09 12:00 Order name: Basic Metabolic Panel; Complete Time: 13:19 [facility] 02/09 12:00 Order name: CBC with Diff; Complete Time: 13:19 [facility] 02/09 12:00 Order name: LFT's; Complete Time: 13:19 [facility] 02/09 12:00 Order name: Magnesium; Complete Time: 13:19 [facility] 02/09 12:00 Order name: NT PRO-BNP; Complete Time: 13:19 [facility] 02/09 12:00 Order name: PT-INR; Complete Time: 13:19 [facility] 02/09 12:00 Order name: Troponin (emerg Dept Use Only); Complete Time: 13:19 [facility] 02/09 12:00 Order name: Lipase; Complete Time: 13:19 [facility] 02/09 12:00 Order name: Blood Culture Adult (2) [facility] 02/09 12:00 Order name: Procalcitonin; Complete Time: 14:34 [facility] 02/09 12:00 Order name: Lactate; Complete Time: 13:19 [facility] 02/09 12:00 Order name: Urine Culture [facility] 02/09 12:58 Order name: Urine Dipstick--Ancillary (enter results); Complete Time: 13:19 tt3 02/09 13:15 Order name: Manual Differential; Complete Time: 13:19 [facility] 02/09 12:00 Order name: XRAY Chest (1 view); Complete Time: 13:19 [facility] 02/09 12:00 Order name: EKG; Complete Time: 12:01 [facility] 02/09 12:00 Order name: Cardiac monitoring; Complete Time: 12:22 [facility] 02/09 12:00 Order name: EKG - Nurse/Tech; Complete Time: 12:22 [facility] 02/09 12:00 Order name: IV Saline Lock; Complete Time: 13:30 [facility] 02/09 12:00 Order name: Labs collected and sent; Complete Time: 13:30 [facility] 02/09 12:00 Order name: O2 Per Protocol; Complete Time: 12:22 [facility] 02/09 12:00 Order name: O2 Sat Monitoring; Complete Time: 12:22 [facility] 02/09 12:00 Order name: CT Stone Protocol: uti, bilateral flank pain; Complete Time: 14:34 [facility] 02/09 12:00 Order name: CT Head Brain wo Cont; Complete Time: 14:34 [facility] 02/09 12:00 Order name: Urine Dipstick-Ancillary (obtain specimen); Complete Time: 13:29 [facility] 02/09 13:19 Order name: Type And Screen; Complete Time: 14:34 [facility] 02/09 13:43 Order name: CONS Physician Consult [facility] 02/09 12:29 Order name: Misc. Order: brad hernandez; Complete Time: 13:28 [facility] 02/09 13:26 Order name: Fuentes; Complete Time: 13:28 [facility] 02/09 14:35 Order name: IV - Large Bore; Complete Time: 15:27 [facility] EC:29 Rate is 67 beats/min. Rhythm is irregularly irregular. QRS [place] is Normal. ME interval bib is normal. QRS interval is normal. QT interval is normal. No Q waves. T waves are Normal. No ST changes noted. Clinical impression: Atrial Fibrillation and No evidence of ischemia. Interpreted by me. Reviewed by me. Administered Medications: 12:45 Drug: NS 0.9% 500 ml Route: IV; Rate: bolus; Site: left antecubital; jl7 13:35 Follow up: IV Status: Completed infusion; IV Intake: 500ml jl7 12:45 Drug: Cefepime 2 grams Route: IVPB; Rate: 200 ml/hr; Infused Over: 5 mins; Site: left jl7 antecubital; 12:50 Follow up: Response: No adverse reaction; IV Status: Completed infusion jl7 13:28 Drug: NS 0.9% 1000 ml Route: IV; Rate: 125 ml/hr; Site: left antecubital; jl7 16:32 Follow up: Response: No adverse reaction; IV Status: Infusion continued upon admission jl7 Disposition: 02/10/20 13:35 Hospitalization ordered by Tye Bauer for Inpatient Admission. Preliminary diagnosis are Altered mental status, unspecified, Obesity, unspecified, Acute kidney failure, Anemia, unspecified, Urinary tract infection, site not specified, Atrial fibrillation and flutter, Hypothermia. - Bed requested for Intensive Care Unit. - Status is Inpatient Admission. jb4 - Condition is Fair. - Problem is new. - Symptoms are unchanged. Signatures: Dispatcher [employer] Carmella Rodriguez RN RN dw Anderson, Corey, MD MD cha Munoz, Edgar RN Dandre Alexander RN RN jb4 Hieu Davis RN RN jl7 Sarina Ozuna Corrections: (The following items were deleted from the chart) 13:47 13:35 Hospitalization Ordered by Tye Bauer MD for Inpatient Admission. Preliminary bib diagnosis is Altered mental status, unspecified; Obesity, unspecified; Acute kidney failure; Anemia, unspecified; Urinary tract infection, site not specified. Bed requested for Telemetry/MedSurg (Inpatient). Status is Inpatient Admission. Condition is Fair. Problem is new. Symptoms are unchanged. bib 15:12 13:47 02/10/2020 13:35 Hospitalization Ordered by Tye Bauer MD for Inpatient eb Admission. Preliminary diagnosis is Altered mental status, unspecified; Obesity, unspecified; Acute kidney failure; Anemia, unspecified; Urinary tract infection, site not specified; Atrial fibrillation and flutter. Bed requested for Telemetry/MedSurg (Inpatient). Status is Inpatient Admission. Condition is Fair. Problem is new. Symptoms are unchanged. bib 15:33 15:12 02/10/2020 13:35 Hospitalization Ordered by Tye Bauer MD for Inpatient dw Admission. Preliminary diagnosis is Altered mental status, unspecified; Obesity, unspecified; Acute kidney failure; Anemia, unspecified; Urinary tract infection, site not specified; Atrial fibrillation and flutter. Bed requested for Telemetry/MedSurg (Inpatient). Status is Inpatient Admission. Condition is Fair. Problem is new. Symptoms are unchanged. eb 16:54 15:33 02/10/2020 13:35 Hospitalization Ordered by Tye Bauer MD for Inpatient bib Admission. Preliminary diagnosis is Altered mental status, unspecified; Obesity, unspecified; Acute kidney failure; Anemia, unspecified; Urinary tract infection, site not specified; Atrial fibrillation and flutter. Bed requested for Telemetry/MedSurg (Inpatient). Status is Inpatient Admission. Condition is Fair. Problem is new. Symptoms are unchanged. dw 17:45 16:54 02/10/2020 13:35 Hospitalization Ordered by Tye Bauer MD for Inpatient bib Admission. Preliminary diagnosis is Altered mental status, unspecified; Obesity, unspecified; Acute kidney failure; Anemia, unspecified; Urinary tract infection, site not specified; Atrial fibrillation and flutter; Hypothermia. Bed requested for Telemetry/MedSurg (Inpatient). Status is Inpatient Admission. Condition is Fair. Problem is new. Symptoms are unchanged. bib 18:03 17:45 02/10/2020 13:35 Hospitalization Ordered by Tye Bauer MD for Inpatient dw Admission. Preliminary diagnosis is Altered mental status, unspecified; Obesity, unspecified; Acute kidney failure; Anemia, unspecified; Urinary tract infection, site not specified; Atrial fibrillation and flutter; Hypothermia. Bed requested for Intensive Care Unit. Status is Inpatient Admission. Condition is Fair. Problem is new. Symptoms are unchanged. bib 20:20 18:03 02/10/2020 13:35 Hospitalization Ordered by Tye Bauer MD for Inpatient jb4 Admission. Preliminary diagnosis is Altered mental status, unspecified; Obesity, unspecified; Acute kidney failure; Anemia, unspecified; Urinary tract infection, site not specified; Atrial fibrillation and flutter; Hypothermia. Bed requested for Intensive Care Unit. Status is Inpatient Admission. Condition is Fair. Problem is new. Symptoms are unchanged. dw
--- NOTE | 2020-02-10 13:59 | RAD REPORT ---
EXAM DESCRIPTION: CT - Head Brain Wo Cont - 02/10/2020 1:26 pm CLINICAL HISTORY: Dizziness;Declining state;Confused COMPARISON: CT head October 15, 2019 TECHNIQUE: Axial 5 mm thick images of the head were obtained without IV contrast. All CT scans are performed using dose optimization technique as appropriate and may include automated exposure control or mA/KV adjustment according to patient size. FINDINGS: No intracranial hemorrhage, mass, edema or shift of mid-line structures. No acute cortical based infarction identified. Moderately large area of encephalomalacia present in the right frontal lobe extending down into the basal ganglia and external capsule. Moderate severity chronic ischemic c hange and mild to moderate atrophy are present. These intracranial findings match comparison. No abno rmal extra-axial fluid collections. Ventricles are in proportion to volume loss. Arterial and physiol ogic calcification is present. Mastoid air cells are clear. No acute paranasal sinus finding. No acute bony findings. IMPRESSION: Negative non-contrast CT head examination for acute finding Above detailed findings are stable from October.
--- NOTE | 2020-02-10 14:12 | RAD REPORT ---
EXAM DESCRIPTION: CT - Stone Protocol - 02/10/2020 1:25 pm CLINICAL HISTORY: FLANK PAIN COMPARISON: Abdomen Pelvis Wo Contrast dated 06/18/2019; Pelvis dated 10/15/2019 TECHNIQUE: Axial [address] imaging of the abdomen and pelvis was performed without IV contrast. No IV contrast was given because of allergy, abnormal renal function, patient refusal or physician re quest. Oral contrast was given. All CT scans are performed using dose optimization technique as appropriate and may include automated exposure control or mA/KV adjustment according to patient size. FINDINGS: Chronic interstitial lung disease is present potentially masking edema or infiltrate. Card iomegaly is present without pericardial effusion. There is a moderate-sized right pleural effusion on ly partially imaged. Partial atelectasis of the right lower lobe noted. Trace amount of pleural fluid in the left base. The liver, spleen and pancreas show no suspicious findings on non-contrast imaging. Cholecystectomy c lips are present. No biliary tree dilatation. Calcified splenic artery aneurysm noted and stable. No hydronephrosis or suspicious renal mass. Cortical thinning is present. Renal function cannot be as sessed. Small areas of nodularity present in both kidneys believed to be simple and high protein cont ent cysts. No clear change from the comparison. No significant adrenal finding. Isodense renal masses and pyelonephritis cannot be excluded in the absence of IV contrast. Urinary bladder is fully contra cted around a Fuentes catheter. No dilated bowel loops or bowel wall thickening. Prominent diverticulosis present without diverticuli tis. Most of the colon is decompressed limiting assessment. Trace amount of stranding present adjacen t to the ascending colon. Cecum positioned along the floor the pelvis anteriorly. Appendix is not lali sivan defined. Acute appendicitis not suspected. No free air or pneumatosis. Minimal mild of ascites adjacent to the lateral liver capsule. No hernia , mass or bulky lymphadenopathy. Vertebral body degenerative changes are present. Prominent facet degenerative change at L5-S1. Right sacral ala fracture is present the anterior column of the right acetabulum shows fracture. There is f racture at the right-side pubic symphysis as well as the ischium. Periosteal reaction is evident. The se fractures are new from June 2019 but are not acute. Anasarca pattern with prominent fluid retention throughout the subcutaneous fatty tissues of the abdo men and pelvis. IMPRESSION: No bowel obstruction, free air or surgically emergent finding. Prominent anasarca pattern throughout the subcutaneous fatty tissues of the abdomen and pelvis. Patie nt has a moderate right pleural effusion with partial atelectasis of the right lower lobe. Subacute fractures of the right ischium, anterior column of the acetabulum, pubic symphysis and right sacral ala. Full assessment is limited is the absence of IV contrast.
[2020-02-10] MEDS ORDERED: ONDANSETRON 4 MG/2 ML VIAL IV PRN (20:03)
[2020-02-10] MEDS ORDERED: FENTANYL CITR 100 MCG/2 ML IV PRN (20:03)
[2020-02-10] MEDS ORDERED: GLUCAGON 1 MG/VIAL IM PRN (20:03)
[2020-02-10] MEDS ORDERED: ACETAMINOPHEN 500 MG TAB PO PRN (20:03)
[2020-02-10] MEDS ORDERED: FUROSEMIDE 20 MG/ 2ML VIAL IV SCH (20:03)
[2020-02-10] MEDS ORDERED: ALBUTEROL 2.5 MG/3 ML NEB SOL NEB PRN (20:03)
[2020-02-10] MEDS ORDERED: IPRATROPIUM BROM 0.5MG/2.5ML NEB PRN (20:03)
[2020-02-10] MEDS: INSULIN -REGULAR HUMAN 50 UNIT/0.5 ML ML SQ SCH ×2 (20:03→21:00)
[2020-02-10] MEDS: carvediloL 6.25 MG TAB PO SCH (21:00)
[2020-02-10] MEDS: D50W 25 GM/50 ML SYRINGE/VIAL IV PRN (21:02)
[2020-02-10] MEDS: NA CHLORIDE 0.9% 1,000 ML IV SCH (21:03)
[2020-02-10] MEDS: FAMOTIDINE 20 MG/2 ML VIAL IV SCH (21:36)
[2020-02-11 05:33] LABS: Potassium 5.3 mmol/L (3.5-5.1)
[2020-02-11] MEDS: NA CHLORIDE 0.9% 1,000 ML IV SCH (06:10)
[2020-02-11 06:42] LABS: Absolute Lymphocytes (CBC) 1.5 K/uL (0.7-4.9); Basophils % 0.9 % (0-1.3); Hematocrit 28.2 % (36.0-45.0); Lymphocytes % 21.2 % (15.3-44.8); MPV 13.2 fL (7.6-11.3); RBC Red Blood Cell Count 2.68 M/uL (3.86-4.86)
[2020-02-11] MEDS ORDERED: D5 0.9 NS 1,000 ML IV SCH (07:00)
[2020-02-11] MEDS: D50W 25 GM/50 ML SYRINGE/VIAL IV PRN (07:02)
[2020-02-11] MEDS: INSULIN -REGULAR HUMAN 50 UNIT/0.5 ML ML SQ SCH ×4 (07:30→21:00)
--- NOTE | 2020-02-11 08:41 | EKG ---
Test Date: 2020-02-10 Test Time: 12:01:02 Supervisor [employer]: MARIELA MEASUREMENT RESULTS: Intervals: Rate: 67 ID: QRSD: [id number] QT: 474 QTc: 500 Hazen: P: ID: [id number] T: 70 INTERPRETIVE STATEMENTS: Atrial fibrillation RSR' or QR pattern in V1 suggests right ventricular conduction delay Possible Inferior infarct, age undetermined Cannot rule out Anterior infarct, age undetermined Abnormal ECG Compared to ECG 06/18/2019 17:23:46 RSR' in V1 or V2 now present Myocardial infarct finding now present Incomplete right bundle-branch block no longer present T-wave abnormality no longer present Electronically Signed On 02-11-20 08:40:13 CDT by Arnav Jaimes
[2020-02-11] MEDS: FAMOTIDINE 20 MG/2 ML VIAL IV SCH (08:43)
[2020-02-11] MEDS: carvediloL 6.25 MG TAB PO SCH (08:43)
[2020-02-11] MEDS ORDERED: CEFEPIME 1 GM/VIAL IV SCH (09:00)
--- NOTE | 2020-02-11 11:12 | RAD REPORT ---
EXAM DESCRIPTION: RAD - Chest Single View - 02/11/2020 6:55 am CLINICAL HISTORY: Chest Pain Chest pain. COMPARISON: Chest Single View dated 02/10/2020; Chest Single View dated 06/04/2019; Chest Single View da osito 09/12/2017; Abdomen 1 View (KUB) dated 04/08/2017 FINDINGS: Portable technique limits examination quality. [id number] interstitial pulmonary opacities are present bilaterally, mildly progressive since c omparative study. The heart is moderately enlarged in size. No displaced fractures. IMPRESSION: Mild worsening in lung aeration is seen since comparative examination.
[2020-02-11 11:29] LABS: Arterial Blood Carboxyhemoglob 1.4 % (0-1.5); Blood Gas Oxyhemoglobin 93.9 % (94-97); Blood O2 Saturation 96.3 % (92-98.5)
[2020-02-11] MEDS: CEFEPIME/SWI 1gm 10 ML IVP SCH (11:41)
--- NOTE | 2020-02-11 11:50 | HP ---
Date of Admission: 02/10/2020 Chief Complaint: Generalized weakness, altered mental status. History Of Present Illness: History was obtained from the daughter over the phone as the patient was quite confused when presented to the emergency room. According to the daughter, in the past week galen chan has been going slowly downhill and she has had significant episodes of confusion, also has anorexia and diarrhea and has been generally in declining health and she was brought to the emergency room as she became more confused than usual. Past History: The patient has had a long history of diabetes complicated by some renal insufficiency . She has been followed by Nephrology, however, she has not seen for the past few months due to the COVID viral situation. She has had significant problem with it approximately a year ago when she bec lars somewhat like her present condition and after getting some IV fluids and antibiotics IV as she wa s considered to be septic at that time she did respond and has been done fairly well up until recentl y. The daughter says she was made a DNR and therefore this will be continued. Daughter also states she has had a couple episodes where she has actually slid to forward. No direct trauma as far as she can recall. This also has been in the past week or two. She was treated for UTI in the past couple weeks with varying culture results. The last antibiotic use was Bactrim, which she thought maybe ma de her mother nauseated and some diarrhea was switched to tetracycline a few days ago. Social History: Nonsmoker, nondrinker. Family History: Noncontributory. Physical Examination: General: Patient is an elderly obese female markedly disorientated with stable vital signs. Head and neck: Normocephalic. Pupils equally, reactive to light and accommodation. Chest: Clear to P and A. Cardiovascular: PMI midclavicular line. Heart sounds normal. Peripheral pulses present and equal b ilaterally. Abdomen: Grossly obese. No organomegaly. Bowel sounds normal. The patient apparently nontender in the pelvic area with the site of the subacute fractures on CAT scan. Extremities: Slightly dehydrated. Some peripheral edema noted in the hands, minimal in the legs. Rectal-pelvic: Deferred. Impression: Acute renal failure, altered mental status, and insulin-dependent diabetes mellitus, poo r control. Plan: Patient will be admitted, placed on IV fluids. Antibiotics in the form of cefoxitin will be i nstituted. Consultation was obtained with Nephrology, will remain in ICU until the patient is more s tabilized. HR/MODL Voice ID: [id number]
[2020-02-11] MEDS ORDERED: FUROSEMIDE 40 MG/4 ML VIAL IV ONE (12:00)
[2020-02-11] MEDS ORDERED: carvediloL 3.125 MG TAB PO SCH (12:00)
[2020-02-11 12:39] LABS: BUN Blood Urea Nitrogen 102 mg/dL (7-18); Bicarbonate 20 mmol/L (21-32); Glucose Level 91 mg/dL (74-106); Potassium 4.8 mmol/L (3.5-5.1); Sodium Level 140 mmol/L (136-145)
--- NOTE | 2020-02-11 12:47 | PN ---
Date of Progress Note: 02/11/2020 Patient is still markedly disoriented and confused. Her output has been minimal despite a bolus of 2 50 during the night. Her blood sugars still difficult stabilizing and she has D5 normal saline going , some question of element of failure as well on x-rays and will obtain an echo tomorrow. Awaiting N ephrology consultation as well. Creatinine has been still over 4 and potassium was fine and her O2 s aturation is fine. Chest still remains clear, so continues to have an element of renal failure as op posed to cardiac dysfunction as well and balances to situations as best we can. HR/MODL Voice ID: [id number] Report ID: [id number]
[2020-02-11] MEDS: DEXTROSE 10%-WATER 500 ML IV SCH (15:23)
--- NOTE | 2020-02-11 16:47 | CON ---
Date of Consultation: 02/11/2020 Reason For Consultation: Elevated BUN and creatinine, hyperkalemia, fluid management. History Of Present Illness: All the information has been obtained from the record as patient with altered mental status. This is an 85-year-old female with significant past medical history of diabetes complicated with neuropathy and nephropathy, coronary artery disease complicated with congestive heart failure, diastolic dysfunction, ejection fraction on the 50s, pulmonary hypertension, Afib rate controlled. Patient apparently had chronic kidney disease stage 3B/4 with baseline creatinine back in October 2019 1.8 to 1.9, GFR of 27, had recent acute kidney injury secondary to prerenal. Patient apparently visited with her primary care for decreased intake and found to have UTI. Patient was placed on Bactrim almost 10 days ago. Since then, her condition started to decline further and patient started worsening in her altered mental status. For that reason, PCP referred her to the emergency room. In the emergency room, primary workup showed elevation in BUN and creatinine with mild acidosis. Her creatinine was 4 with BUN of 100, GFR of 90. For that reason, patient was admitted. On the record, there is no mention for other insulting medication, except the Bactrim. In the ER, patient was not hypotensive. Patient was started on IV hydration. Her acidosis is slightly worsening with bicarb down to 17. Patient did not have any good urine output. Over the night, she made only 300. CT did show some anasarca in the abdomen, but did not show any hydronephrosis. Patient found to have UTI. Past Medical History: 1. Coronary artery disease complicated with congestive heart failure, diastolic dysfunction. 2. Chronic kidney disease, normal-sized kidney, secondary to diabetes nephropathy/cardiorenal with creatinine 1.8 to 1.9, GFR of 27 as by October 2019. 3. Hypertension. 4. Pulmonary hypertension. 5. Diabetes. Allergies: CIPRO, MORPHINe Family History: Positive for hypertension. Social History: None obtainable. Review of Systems: None obtainable. Past Surgical History: Hysterectomy, cataract surgery, cholecystectomy. Home Medications: 1. Bactrim. 2. Lasix. 3. Eleanor. 4. Doxycycline. 5. Ferrous sulfate. 6. Carvedilol. 7. Aspirin. 8. Allopurinol. 9. Pantoprazole. 10. Thiamine. Current medications in the hospital include: 1. Albuterol. 2. Carvedilol. 3. Normal saline. 4. Insulin. Physical Examination: Vital Signs: When I saw the patient, blood pressure of 117/70, pulse of 85, afebrile. Chest: Crackles bilateral bases, extended to the mid zone. Heart: S1, S2 systolic murmur. Abdomen: Soft, nontender. Extremities: +2 edema with lymphedema. Neurologic: Alert, confused, follow simple command. No focality. Laboratory Data: Sodium 142, potassium 5.3, bicarb 17, chloride 112, BUN 104, creatinine 4.8, calcium of 9. BNP 6143. Urinalysis; specific gravity 1.030, +3 protein, negative for infection. Assessment And Plan: 1. Acute kidney injury secondary to Bactrim-induced nephropathy superimposed with poor intake, questionable cardiorenal, looked to me over volume, oliguric with uremia and mild acidosis. Marginal hyperkalemia. I going to go ahead and discontinue IV fluid, start the patient on Lasix and we will monitor the patient. I am going to go ahead and send for urine eosinophil, obstructive uropathy has been ruled out. We will monitor the patient in the next 24 hours. If kidney function continue to decline, patient may need to do dialysis transitionally and we will follow up. 2. Hypertension. Currently blood pressure marginal. We will give Lasix. Decrease carvedilol to 3.25 and we will follow up. 3. Urinary tract infection, status post treatment with Bactrim. Agree with holding the Bactrim currently. We will send for urine eosinophil. Agree with ceftriaxone. We will follow up culture. 4. Diabetes as by primary. 5. Acidosis, high anion gap metabolic acidosis, supported with ABG. Lactic acidosis has been ruled out. Possible secondary to poor perfusion and renal failure. I do not see the need to initiate any bicarb right now. I am going to repeat the lactic acid and I will send for ketone even though I doubt that it is ketoacidosis given that the glucose not elevated. 6. Altered mental status, possible secondary to metabolic/secondary to uremia. We will continue current antibiotic. We will follow up as I mentioned if kidney function did not improve, the patient may need to be initiated some renal replacement therapy. 7. Hyperkalemia. Patient is going to receive diuresis. Will follow up in clinic. Thank you, Dr. Judd, for allowing us to participate in the care of your patient. MAI Voice ID: [id number] Report ID: [id number] NILO
[2020-02-11] MEDS: ALBUMIN HUMAN 25% 12.5 GM, FUROSEMIDE 100 MG in NA CHLORIDE 0.9% 40 ML IV SCH (18:28)
[2020-02-11] MEDS: carvediloL 3.125 MG TAB PO SCH (21:51)
[2020-02-12] MEDS: ALBUMIN HUMAN 25% 12.5 GM, FUROSEMIDE 100 MG in NA CHLORIDE 0.9% 40 ML IV SCH ×6 (01:43→23:54)
[2020-02-12] MEDS: DEXTROSE 10%-WATER 500 ML IV SCH ×2 (04:10→19:40)
[2020-02-12 05:37] LABS: Potassium 4.7 mmol/L (3.5-5.1)
[2020-02-12 05:46] LABS: Absolute Lymphocytes (CBC) 1.8 K/uL (0.7-4.9); Basophils % 0.7 % (0-1.3); Hematocrit 27.3 % (36.0-45.0); Lymphocytes % 28.2 % (15.3-44.8); MPV 12.3 fL (7.6-11.3); RBC Red Blood Cell Count 2.58 M/uL (3.86-4.86)
[2020-02-12] MEDS: INSULIN -REGULAR HUMAN 50 UNIT/0.5 ML ML SQ SCH ×4 (07:21→21:00)
[2020-02-12] MEDS: carvediloL 3.125 MG TAB PO SCH ×2 (08:11→20:40)
[2020-02-12] MEDS: CEFEPIME/SWI 1gm 10 ML IVP SCH (08:13)
[2020-02-12] MEDS: FAMOTIDINE 20 MG/2 ML VIAL IV SCH (08:13)
--- NOTE | 2020-02-12 11:11 | PN ---
Date of Progress Note: 02/12/2020 Subjective: Patient has become nonresponsive other than to pain stimuli. Therefore, old off on her diet, modify her p.o. medication. Also the E coli showed ESBL changed to meropenem, dose appropriate . Blood chemistry still showing elevated creatinine. She is on the albumin, Lasix drip. O2 sats ar e stable at the moment. HR/MODL Voice ID: [id number] Report ID: [id number]
[2020-02-12] MEDS: Meropenem 500 MG in NA CHLORIDE 0.9% 100 ML IV SCH ×2 (12:29→20:40)
[2020-02-12] MEDS: SODIUM BICARB 325 MG TAB PO SCH (20:51)
--- NOTE | 2020-02-13 00:23 | PN ---
Date of Progress Note: 02/12/2020 Chief Complaint: Elevated BUN and creatinine and hyperkalemia. History Of Present Illness: Patient is an 85-year-old female, has significant medical history relate d to diabetic complication with neuropathy, nephropathy. She has coronary artery disease and congest jorgito heart failure with diastolic dysfunction, ejection fraction 50s; pulmonary hypertension; chronic atrial fibrillation. Patient presented to the hospital because of generalized weakness. She has chr onic kidney disease 3B/4 with creatinine baseline in October 2019 ranging from 1.8 to 1.9 and GFR of 27. Patient has recent history of acute kidney injury secondary to prerenal azotemia. Patient is ad mitted to the hospital because she was found to have elevated azotemia. Her creatinine is 4, BUN 100 . Patient developed acute on chronic kidney injury. CT scan showed some anasarca in the abdomen, bu t did not show hydronephrosis. Patient was found to have urinary tract infection. Review of Systems: Unobtainable. Patient is lethargic. Physical Examination: Lungs: Diminished breath sounds at bases. Heart: S1, S2. Abdomen: Soft, benign. Extremities: Slight edema. Laboratory Data: BUN 99, creatinine is 4.73, sodium 141, potassium 4.7, chloride 111, CO2 19, calciu m is 9.3. Impression And Plan: 1.Acute on chronic kidney injury, nonoliguric. Urine output is somewhat improving. Patient may nee d dialysis if renal function does not improve over next 24 hours. Patient will start sodium bicarbon ate tablets for metabolic acidosis, which is related to acute kidney injury. There is hyperchloremic metabolic acidosis. 2.Hypertension. Blood pressure is in acceptable range. There is no evidence of hypotension. 3.Fluid overload. Patient may be a candidate for Lasix at this point. Patient is unresponsive toda y and primary team is modifying her medication. Currently, she is not on p.o. medication. She was f ound to have Escherichia coli infection. Antibiotic was changed to meropenem to treat urinary tract infection. Patient started on albumin and Lasix drip for volume control. Continue to monitor urine output. Patient may be a candidate for dialysis tomorrow. EB/MODL Voice ID: [id number] Report ID: [id number]
[2020-02-13] MEDS: ALBUMIN HUMAN 25% 12.5 GM, FUROSEMIDE 100 MG in NA CHLORIDE 0.9% 40 ML IV SCH ×4 (05:00→20:00)
[2020-02-13] MEDS: DEXTROSE 10%-WATER 500 ML IV SCH (06:04)
[2020-02-13] MEDS: INSULIN -REGULAR HUMAN 50 UNIT/0.5 ML ML SQ SCH ×4 (07:30→21:00)
[2020-02-13] MEDS: FAMOTIDINE 20 MG/2 ML VIAL IV SCH (08:05)
[2020-02-13] MEDS: Meropenem 500 MG in NA CHLORIDE 0.9% 100 ML IV SCH ×2 (08:06→21:07)
[2020-02-13] MEDS: carvediloL 3.125 MG TAB PO SCH (08:07)
[2020-02-13] MEDS: SODIUM BICARB 325 MG TAB PO SCH ×2 (08:07→21:00)
[2020-02-13 10:46] LABS: Potassium 4.2 mmol/L (3.5-5.1)
--- NOTE | 2020-02-13 11:34 | RAD REPORT ---
EXAM DESCRIPTION: Chest Single View CLINICAL HISTORY: PICC placement COMPARISON: None. FINDINGS: Single frontal view of the chest. Cardiomediastinal silhouette: PICC with tip in the SVC. Cardiomegaly. Lungs: Pulmonary vascular congestion with bilateral interstitial opacities. Blunting of the costophre anh angles. Leads overlie the chest. No pneumothorax. Bones: Degenerative change of the spine. Upper abdomen: No abnormality identified. IMPRESSION: 1. Cardiomegaly with pulmonary vascular congestion. 2. Possible small bilateral pleural effusions. 3. Right arm PICC with tip in the SVC. Electronically signed by: Kailash Goowdin 02/13/2020 1:10 AM CDT Due to temporary technical issues with the PACS/Fluency reporting system, reports are being signed by the in house radiologist as a courtesy to ensure prompt reporting. The interpreting radiologist is f ully responsible for the content of the report.
--- NOTE | 2020-02-13 15:30 | P.OP ---
Preoperative diagnosis: Acute Renal Failure Postoperative diagnosis: Acute Renal Failure Primary procedure: Placement of LEFT Femoral Temporary Hemodialysis Catheter Secondary procedure: Ultrasound Guidance and microintroducer used Anesthesia: Local 1% lidocaine Estimated blood loss: 20cc Specimen: None Findings: Dark non-pulsatile blood, higher pressure Complications: None Implants: maharkur dual lumen hemodialysis catheter Transferred to: ICU Condition: Fair
[2020-02-13 15:52] LABS: Arterial Blood Carboxyhemoglob 1.5 % (0-1.5); Blood Gas Oxyhemoglobin 93.7 % (94-97); Blood O2 Saturation 96.2 % (92-98.5)
--- NOTE | 2020-02-13 18:18 | PN ---
Date of Progress Note: 02/13/2020 Subjective: Patient is still poorly responsive, responds only to pain stimuli. Patient was admitted with acute kidney injury, possible secondary to Bactrim. Patient had altered mental status. Patien t had anasarca. We started the patient on Lasix drip. Patient is nonoliguric. Physical Examination: Vital Signs: When I saw the patient, blood pressure 137/91, pulse of 97. Patient had urine output o f 2 L. Negative Fuentes 600. Chest: Crackles bilateral. Heart: S1, S2. Systolic murmur. Abdomen: Morbidly obese, anasarca. Extremities: +2 edema. Neuro: Moves 4 extremities, responds only to pain. Laboratory Data: WBC 6.3, H and H 8.5/27.3, platelets of 77. Sodium 138, potassium 4.2 bicarb 21, B UN 97, creatinine 4.5, calcium 10.1. Current Medications: The patient on include; 1.Meropenem. 2.Carvedilol. 3.Sodium bicarb. 4.Pepcid. 5.Lasix drip. Assessment And Plan: Acute kidney injury secondary to Bactrim, possible AIN with significant periphe ral eosinophilia. Proteinuric. 1.I had long discussion with the patient's daughter at phone #[phone] regarding the patient jose t the patient may benefit from temporary hemodialysis to relieve the uremic symptoms of altered menta l status secondary to the uremia, and given the condition of the patient and the wishes of the patien t before that she does not want dialysis, we are going to try just temporary dialysis for the next fe w days and we will follow up if the patient recover. We will backup otherwise. Also, we can have ba ck up if patient does not recover. 2.Hypertension, controlled, optimal. We will utilize blood pressure for more fluid removal. Contin ue Lasix drip currently and we will ultrafiltrate. 3.Urinary tract infection secondary to Escherichia coli extended-spectrum beta-lactamase. Agree wit h meropenem. We will monitor the patient. 4.Anasarca. I am going to go ahead and send for TSH. 5.Encephalopathy. CT before was negative, possible secondary to uremia/metabolic. I am going to go ahead and repeat a CT. We will follow up after dialysis. Time spent 65 minutes. MAI Voice ID: [id number] Report ID: [id number]
[2020-02-13 22:00] VITALS: O2SAT 93
--- NOTE | 2020-02-14 01:08 | OP ---
Date of Procedure: 02/13/2020 Surgeon: Arnie Sanchez MD, Preoperative Diagnosis: Acute renal failure. Postoperative Diagnosis: Acute renal failure. Procedure Performed: Placement of a left femoral temporary hemodialysis catheter using ultrasound gu idance and microintroducer set. Anesthesia: Local 1% lidocaine used. Estimated Blood Loss: 20 cc. Specimens: None. Findings: 1.Dark nonpulsatile blood return. 2.Dark red blood came out with higher than normal pressure consistent with a venous hypertension typ e picture. Complications: None. Implants: Mahurkar dual-lumen hemodialysis catheter. Disposition: Patient remained in ICU in fair condition throughout the procedure. Description Of Procedure: After informed consent was obtained from the patient's medical power of [facility], patient was prepped and draped in the usual sterile fashion. After adequate anesthesia achie simon, using ultrasound guidance, a microintroducer needle was introduced in the left femoral vein. Da rk red blood was returned. The microwire was advanced at this point, and a small abigail incision was m tariq over the skin at the insertion site. The microintroducer sheath was then advanced and the microw lily was removed. The inner cannula was removed from the introducer sheath and dark red nonpulsatile blood was returned, but it was under some pressure interestingly, but had a nonpulsatile characterist ic. As such, the standard wire was then advanced and the introducer sheath removed. Sequential dila tation was performed using Seldinger technique without significant resistance, and the standard Mahur xavier dual-lumen catheter was placed in using Seldinger technique without any incident or complication. Dark red nonpulsatile blood was returned after the standard wire was removed and all ports withdrew dark red, nonpulsatile blood, and flushed quite easily and was packed with heparin in each port afte r flushing the catheter completely with saline. The catheter was then capped and secured to the skin using the 2-0 nylon suture and a sterile dressing placed over the top after re-cleansing the area on ce again. Patient tolerated the procedure well, remained in the ICU in fair condition throughout the procedure. All counts were correct at the end of the case. TK/MODL Voice ID: [id number] Report ID: [id number]
[2020-02-14] MEDS: ALBUMIN HUMAN 25% 12.5 GM, FUROSEMIDE 100 MG in NA CHLORIDE 0.9% 40 ML IV SCH (05:00)
[2020-02-14 05:15] LABS: Urine Protein/Creatinine Ratio 7.25 ratio (<0.15)
[2020-02-14 05:27] LABS: Albumin 3.7 g/dL (3.4-5.0); Phosphorus 4.8 mg/dL (2.5-4.9); Thyroid Stimulating Hormone 2.93 uIU/mL (0.360-3.740)
[2020-02-14 05:39] VITALS: BMI 34.6
[2020-02-14] MEDS: DEXTROSE 10%-WATER 500 ML IV SCH (05:57)
[2020-02-14] MEDS: INSULIN -REGULAR HUMAN 50 UNIT/0.5 ML ML SQ SCH (07:30)
[2020-02-14 07:42] LABS: Absolute Lymphocytes (CBC) 1.3 K/uL (0.7-4.9); Basophils % 0.6 % (0-1.3); Hematocrit 29.8 % (36.0-45.0); Lymphocytes % 13.5 % (15.3-44.8); MPV 12.4 fL (7.6-11.3); RBC Red Blood Cell Count 2.83 M/uL (3.86-4.86)
[2020-02-14] MEDS: SODIUM BICARB 325 MG TAB PO SCH (07:57)
[2020-02-14] MEDS: Meropenem 500 MG in NA CHLORIDE 0.9% 100 ML IV SCH (07:59)
[2020-02-14] MEDS: FAMOTIDINE 20 MG/2 ML VIAL IV SCH (07:59)
[2020-02-14 08:27] LABS: Anisocytosis 1+; Blood Morphology Comment NOTED (NOT SEEN); Elliptocytes 1+; Macrocytosis 1+; Platelet Estimate DECR; Poikilocytosis 1+; Urine White Blood Cell Casts OK
[2020-02-14 09:47] VITALS: BP 138/96; TEMP 98.4
--- NOTE | 2020-02-14 10:56 | CON ---
Date of Consultation: 02/13/2020 Brief History Of Present Illness: Patient is an 85-year-old female with past medical history of diab etes, neuropathy, coronary artery disease, CHF, chronic kidney disease stage 3/4 with baseline creati nine in October which was 1.8 to 1.9. GFR was 27. She had a prerenal acute kidney injury and as suc h I was consulted to see the patient for placement of a temporary hemodialysis catheter to help resol ve her uremia. She remained confused and I could not get history from the patient as she remained co nfused throughout the examination and essentially nonverbal, therefore information is obtained primar maldonado from the chart and from consultation with the members of the other physicians involved in her car e. Past Medical History: Significant for coronary artery disease, CHF, diastolic dysfunction, CKD, diab etes, diabetic neuropathy, hypertension, pulmonary hypertension. Allergies: CIPRO, MORPHINE, PREGABALIN, BUTORPHANOL TARTRATE. Past Surgical History: Unable to obtain. Family History: Unable to obtain. Social History: Unable to obtain. Review of Systems: Unable to obtain. Home Medications: Included Tylenol, allopurinol, aspirin, Coreg, cranberry, fish oil, doxycycline, i edilma, ferrous sulfate, fexofenadine, Lasix, gabapentin, Levemir, probiotic, lactobacillus combo, Starl ix, Protonix, Vaniva, and vitamin B1. Physical Examination: General: At the time of my examination, she was in the ICU, nonverbal, but breathing spontaneously. She responds only to noxious stimuli with movements with somewhat purposeless movements. She was no nresponsive to verbal stimuli, responsive only to noxious stimuli with minimally purposeful movements , predominantly shrugging movements with minimal purpose identified with some localization to the mark rce of the pain. Vital Signs: Temperature 96.3, pulse was 106, blood pressure 129/77, respiratory rate 15. HEENT: Her oropharynx was dry. Her tongue was dry. Neck: Appeared to have some JVD. Chest: Decreased breath sounds bilaterally. Heart: Rate was irregular and tachycardic. Abdomen: Soft. Extremities: On focused examination, there was no clubbing or cyanosis. Laboratory Data: She had laboratory exam, which revealed a white blood cell count of 6.3, hemoglobin 8.5, hematocrit of 27.3, platelet count was 77. Her sodium was 138, potassium 4.2, chloride 108, ca rbon dioxide 21, BUN 97, creatinine 4.5, glucose was 151. Imaging Studies: She had imaging performed which included a chest x-ray on 02/12, officially read as cardiomegaly with pulmonary vascular congestion. Small bilateral pleural effusions. Right arm PICC with tip in the SVC. Assessment And Plan: This is an 85-year-old female with acute kidney injury in need of temporary hem odialysis, as such we have spoken to her medical power of desktop manager, and have explained the risks, bhavna efits, and alternatives of placement of a temporary hemodialysis catheter, including but not limited to bleeding, infection, damage to surrounding tissue, need for further operation and procedure, patie nt's family agrees to proceed as indicated. We will proceed. JOLIE/TATUM Voice ID: [id number] Report ID: [id number]
[2020-02-14] MEDS ORDERED: IPRATROPIUM BROM 0.5MG/2.5ML NEB PRN (16:00)
[2020-02-14] MEDS ORDERED: ALBUTEROL 2.5 MG/3 ML NEB SOL NEB PRN (16:00)
--- NOTE | 2020-02-14 20:29 | PN ---
Date of Progress Note: 02/13/2020 The patient is basically status quo versus responsive now only to painful stimuli, which she has been this way for a number of hours. Minimal output. Renal failure has not been altered. Discussion wa s had with the daughter as far as it came down to dialysis and it was decided not to do it according to the patient's daughter. However, the possibility of a temporary hemodialysis was then discussed w steffany Castillo and the daughter and she agreed to try that on a temporary basis. She is then await ing a placement of the catheter and we will attempt this. However, her condition still remains extre nancy critical. HR/MODL Voice ID: [id number] Report ID: [id number]
== END 2020-02-14 09:21 | disposition expired | DRG 682 ==
LOC: ER 11:23 → ERHOLD 13:40 → 2ND 16:56 → 3RD-ICU 19:51
PROVIDERS: ADMIT Family Medicine; ATTEND Family Medicine
PROC: 02HV33Z Insertion of Infusion Device into Superior Vena Cava, Percutaneous Approach (ICD-10-PCS; principal; 2020-02-13)
PROC: 5A1D70Z Performance of Urinary Filtration, Intermittent, Less than 6 Hours Per Day (ICD-10-PCS; 2020-02-13)
DX: N17.9 Acute kidney failure, unspecified (principal); G93.41 Metabolic encephalopathy; S32.10XA Unspecified fracture of sacrum, initial encounter for closed fracture; E87.2 Acidosis; N39.0 Urinary tract infection, site not specified; Z16.12 Extended spectrum beta lactamase (ESBL) resistance; I48.20 Chronic atrial fibrillation, unspecified; Z79.4 Long term (current) use of insulin; Z88.1 Allergy status to other antibiotic agents; Z88.5 Allergy status to narcotic agent; Z79.899 Other long term (current) drug therapy; Z85.828 Personal history of other malignant neoplasm of skin; I25.10 Atherosclerotic heart disease of native coronary artery without angina pectoris; E11.40 Type 2 diabetes mellitus with diabetic neuropathy, unspecified; I12.9 Hypertensive chronic kidney disease with stage 1 through stage 4 chronic kidney disease, or unspecified chronic kidney disease; E11.22 Type 2 diabetes mellitus with diabetic chronic kidney disease; N18.4 Chronic kidney disease, stage 4 (severe); Z90.49 Acquired absence of other specified parts of digestive tract; Z90.710 Acquired absence of both cervix and uterus; Z79.82 Long term (current) use of aspirin; N14.2 Nephropathy induced by unspecified drug, medicament or biological substance; T36.8X5A Adverse effect of other systemic antibiotics, initial encounter; E87.5 Hyperkalemia; B96.20 Unspecified Escherichia coli [E. coli] as the cause of diseases classified elsewhere; E87.70 Fluid overload, unspecified; Z66 Do not resuscitate; E66.9 Obesity, unspecified; Z68.36 Body mass index [BMI] 36.0-36.9, adult; D72.1 Eosinophilia; R60.1 Generalized edema
CPT/HCPCS: 36415; 36569; 70450; 71045; 74176; 76377; 80048; 80069; 80076; 81003; 82010; 82570; 82805; 82947; 83605; 83690; 83735; 83880; 84145; 84156; 84443; 84484; 85025; 85610; 86850; 86900; 86901; 87040; 87077; 87086; 87088; 87186; 88108; 90935; 93005; 96361; 96374; 99285; J0692; J1644; J1940; J7030; J7042; J7799; P9047